=== PATIENT | female | born 1955 | race Caucasian/White ===

== ENCOUNTER 2016-05-07 10:11 | Emergency (ER) | payer BC ==
[~2016-05-07] VITALS: Ht 165.1 cm; Wt 60.0 kg
[~2016-05-07 10:11] MED LIST: ALPR0.5T99 PO; LORT5TAB PO; METR-1 PO; PRIN20TA2 PO
[2016-05-07 10:13] VITALS: BP 137/87; PULSE 118; RESP 15; TEMP 98.2; O2SAT 98
--- NOTE | 2016-05-07 12:38 | PD ---
HPI Chief Complaint: Medical Clearance Time Seen by Provider: 12:25 Travel History International Travel<30 days: No Contact w/Intl Traveler<30days: No Traveled to known affect area: No History of Present Illness HPI This is a 60-year-old female who reports a history of lower extremity peripheral neuropathy, hypertension, anxiety. She presents with her sister for evaluation. The patient reports that 2 days ago she was painting and exerting herself on her porch. She reports that she felt very tired and so she went and took a nap which is unusual for her. She then reports that her family members attempted to wake her up however she felt so weak that she was unable to respond or open her eyes. She could hear them trying to wake her up. Eventually she was able to respond with one word sentences. For most of the day she continued to feel generalized weakness and feel very tired. Yesterday she felt very tired as well but she felt less weak. Today she still feels mildly tired but otherwise feels well. She never had any focal unilateral weakness or facial droop, just generalized weakness. She does note that she drank 2 glasses of wine while she was painting. She denies any recent illness. Denies any headache, blurred vision, chest pain or shortness of breath. She called her primary care physician, Dr. Garg, who recommended that she come here for further evaluation. She has no other complaints. PFSH Past Medical History Anxiety: Yes Cancer: No Cardiovascular Problems: No Endocrine: No Genitourinary: No Hypertension: Yes Immune Disorder: No Musculoskeletal: No Neurologic: No Reproductive: Yes Respiratory: No Menopausal: Yes Dilation and Curettage (D&C): Yes Past Surgical History Appendectomy: Yes Gynecologic Surgery: Yes Social History Alcohol Use: Yes (2 GLASS OF WINE DAILY) Tobacco Use: No Substance Use: No Allergies-Medications (Allergen,Severity, Reaction): Coded Allergies: Morphine (Verified Allergy, Severe, 05/07/16) Sulfa (Verified Allergy, Severe, Itching, 05/07/16) Reported Meds & Prescriptions Reported Meds & Active Scripts Active Reported Gabapentin 300 Mg Cap 300 Mg PO TID Lisinopril 10 Mg Tab 10 Mg PO DAILY Xanax (Alprazolam) 1 Mg Tab 1 Mg PO Q6H PRN Review of Systems Except as stated in HPI: all other systems reviewed are Neg Physical Exam Narrative GENERAL: Well-developed well-nourished female in no acute distress. She is noted to be tachycardic in triage. SKIN: Warm and dry. HEAD: Atraumatic. Normocephalic. EYES: Pupils equal and round. No scleral icterus. No injection or drainage. ENT: No nasal bleeding or discharge. Mucous membranes pink and moist. NECK: Trachea midline. No JVD. CARDIOVASCULAR: Regular rate and rhythm. No murmur appreciated. RESPIRATORY: No accessory muscle use. Clear to auscultation. Breath sounds equal bilaterally. GASTROINTESTINAL: Abdomen soft, non-tender, nondistended. Hepatic and splenic margins not palpable. MUSCULOSKELETAL: No obvious deformities. No clubbing. No cyanosis. No edema. NEUROLOGICAL: Awake and alert. No obvious cranial nerve deficits. Motor grossly within normal limits. Normal speech. Normal finger-nose, heel to powell. 5 out of 5 chief technician x ray strength, arm flexion and extension, ankle dorsi and plantar flexion bilaterally. PSYCHIATRIC: Appropriate mood and affect; insight and judgment normal. Data Data Last Documented VS Vital Signs Date Time Temp Pulse Resp B/P Pulse Ox O2 Delivery O2 Flow Rate FiO2 05/07/16 14:29 88 22 146/78 99 Room Air 05/07/16 10:13 98.2 Orders Electrocardiogram (05/07/16 12:33) Complete Blood Count With Diff (05/07/16 12:33) Comprehensive Metabolic Panel (05/07/16 12:33) Urinalysis - C+S If Indicated (05/07/16 12:33) Ct Brain W/O Iv Contrast(Rout) (05/07/16 12:33) Magnesium (Mg) (05/07/16 12:33) Thyroid Stimulating Hormone (05/07/16 14:14) Free Thyroxine (T4) (05/07/16 14:14) Labs Laboratory Tests Test 05/07/16 05/07/16 12:45 13:15 White Blood Count 7.5 TH/MM3 Red Blood Count 4.59 MIL/MM3 Hemoglobin 14.6 GM/DL Hematocrit 42.7 % Mean Corpuscular Volume 93.1 FL Mean Corpuscular Hemoglobin 31.8 PG Mean Corpuscular Hemoglobin 34.2 % Concent Red Cell Distribution Width 13.6 % Platelet Count 240 TH/MM3 Mean Platelet Volume 6.7 FL Neutrophils (%) (Auto) 73.3 % Lymphocytes (%) (Auto) 15.2 % Monocytes (%) (Auto) 10.6 % Eosinophils (%) (Auto) 0.4 % Basophils (%) (Auto) 0.5 % Neutrophils # (Auto) 5.5 TH/MM3 Lymphocytes # (Auto) 1.1 TH/MM3 Monocytes # (Auto) 0.8 TH/MM3 Eosinophils # (Auto) 0.0 TH/MM3 Basophils # (Auto) 0.0 TH/MM3 CBC Comment DIFF FINAL Differential Comment Sodium Level 139 MEQ/L Potassium Level 4.3 MEQ/L Chloride Level 102 MEQ/L Carbon Dioxide Level 27.0 MEQ/L Anion Gap 10 MEQ/L Blood Urea Nitrogen 15 MG/DL Creatinine 0.81 MG/DL Estimat Glomerular Filtration 72 ML/MIN Rate Random Glucose 76 MG/DL Calcium Level 9.9 MG/DL Magnesium Level 2.4 MG/DL Total Bilirubin 0.4 MG/DL Aspartate Amino Transf 12 U/L (AST/SGOT) Alanine Aminotransferase 19 U/L (ALT/SGPT) Alkaline Phosphatase 61 U/L Total Protein 8.4 GM/DL Albumin 4.4 GM/DL Free Thyroxine 1.02 NG/DL Thyroid Stimulating Hormone 1.150 uIU/ML 3rd Gen Urine Color YELLOW Urine Turbidity CLEAR Urine pH 6.0 Urine Specific Robert 1.013 Urine Protein NEG mg/dL Urine Glucose (UA) NEG mg/dL Urine Ketones 80 mg/dL Urine Occult Blood NEG Urine Nitrite NEG Urine Bilirubin NEG Urine Urobilinogen LESS THAN 2.0 MG/DL Urine Leukocyte Esterase NEG Urine RBC LESS THAN 1 /hpf Urine WBC LESS THAN 1 /hpf Urine Squamous Epithelial <1 /hpf Cells Microscopic Urinalysis Comment CATH-CULT NOT IND MDM Medical Decision Making Medical Screen Exam Complete: Yes Emergency Medical Condition: Yes Medical Record Reviewed: Yes Differential Diagnosis Dehydration, electrolyte abnormality, intoxication, TIA, CVA Narrative Course This is a 60-year-old female who experienced generalized weakness and severe fatigue after painting 2 days ago. She continued to feel very fatigued yesterday and still feels mildly fatigued today. Her primary care physician sent her here for evaluation of this issue. Initial examination reveals no focal neurologic abnormalities. The patient was initially seen in triage where lab work, EKG and CT of the brain have been ordered. The patient will be moved to a medical bed when one becomes available. John Bueno May 07, 2016 12:38
[2016-05-07 13:05] LABS: AUTOMATED NEUTROPHIL # 5.5 TH/MM3 (1.8-7.7); BASOPHIL % 0.5 % (0.0-2.0); EOSINOPHIL % 0.4 % (0.0-4.0); HEMATOCRIT 42.7 % (35.0-46.0); HEMO FLAGS DIFF FINAL; LYMPH % 15.2 % (9.0-44.0); LYMPHOCYTE # 1.1 TH/MM3 (1.0-4.8); MEAN CELL VOLUME 93.1 FL (80.0-100.0); MEAN CORPUSCULAR HEMOGLOBIN 31.8 PG (27.0-34.0); MEAN CORPUSCULAR HGB CONC 34.2 % (32.0-36.0); MONO % 10.6 % (0.0-8.0); NEUT % 73.3 % (16.0-70.0); PLATELET COUNT 240 TH/MM3 (150-450); RED BLOOD COUNT 4.59 MIL/MM3 (4.00-5.30); RED CELL DISTRIBUTION WIDTH 13.6 % (11.6-17.2); WHITE BLOOD COUNT 7.5 TH/MM3 (4.0-11.0)
--- NOTE | 2016-05-07 13:16 | RADRPT ---
EXAM DATE/TIME: 05/07/2016 13:04 [facility] COMPARISON: No previous studies available for comparison. INDICATIONS : Episode of general weakness two days ago. RADIATION DOSE: 56.35 CTDIvol (mGy) MEDICAL HISTORY : Hypertension. SURGICAL HISTORY : Appendectomy. ENCOUNTER: Initial ACUITY: 1 day PAIN SCALE: 0/10 LOCATION: Bilateral head TECHNIQUE: Multiple contiguous axial images were obtained of the head. Using automated exposure control and adj ustment of the mA and/or kV according to patient size, radiation dose was kept as low as reasonably a chievable to obtain optimal diagnostic quality images. FINDINGS: CEREBRUM: The ventricles are normal for age. No evidence of midline shift, mass lesion, hemorrhage or acute in farction. No extra-axial fluid collections are seen. POSTERIOR FOSSA: The cerebellum and brainstem are intact. The 4th ventricle is midline. The cerebellopontine angle i s unremarkable. EXTRACRANIAL: The visualized portion of the orbits is intact. SKULL: The calvaria is intact. No evidence of skull fracture. CONCLUSION: Negative for an acute process.. Kieran Babb MD FACR on May 07, 2016 at 13:14 Board Certified Radiologist. This report was verified electronically.
[2016-05-07 13:27] LABS: ALT (GPT) 19 U/L (10-53); ANION GAP 10 MEQ/L (5-15); AST (GOT) 12 U/L (15-37); BLOOD UREA NITROGEN 15 MG/DL (7-18); CHLORIDE 102 MEQ/L (98-107); GLOMERULAR FILTRATION RATE 72 ML/MIN (>89); MAGNESIUM 2.4 MG/DL (1.5-2.5); POTASSIUM 4.3 MEQ/L (3.5-5.1); SODIUM (NA) 139 MEQ/L (136-145)
[2016-05-07 13:29] LABS: ALKALINE PHOSPHATASE 61 U/L (45-117); TOTAL BILIRUBIN ADULT 0.4 MG/DL (0.2-1.0)
[2016-05-07 14:10] LABS: BLOOD, URINE NEG (NEG); GLUCOSE,URINE NEG (NEG); KETONE, URINE 80 mg/dL (NEG); NITRITE,URINE NEG (NEG); SQUAMOUS EPITHELIAL CELL URINE <1 /hpf (0-5); URINE COLOR YELLOW (YELLW/STRAW)
[2016-05-07 14:16] LABS: COMMENT (UR) CATH-CULT NOT IND; CULTURE IF INDICATED CATH CULTURE NOT IND
[2016-05-07 14:29] VITALS: BP 146/78; PULSE 88; RESP 22; O2SAT 99
--- NOTE | 2016-05-07 14:31 | PD ---
Physical Exam Date Seen by Provider: May 07, 2016 Time Seen by Provider: 14:29 Narrative The patient is a 60-year-old female was initially evaluated by the mid-level provider. Please refer to the initial history, physical, diagnostic evaluation , and treatment modality plan. Data Data Last Documented VS Vital Signs Date Time Temp Pulse Resp B/P Pulse Ox O2 Delivery O2 Flow Rate FiO2 05/07/16 14:29 88 22 146/78 99 Room Air 05/07/16 10:13 98.2 Orders Electrocardiogram (05/07/16 12:33) Complete Blood Count With Diff (05/07/16 12:33) Comprehensive Metabolic Panel (05/07/16 12:33) Urinalysis - C+S If Indicated (05/07/16 12:33) Ct Brain W/O Iv Contrast(Rout) (05/07/16 12:33) Magnesium (Mg) (05/07/16 12:33) Thyroid Stimulating Hormone (05/07/16 14:14) Free Thyroxine (T4) (05/07/16 14:14) Labs Laboratory Tests Test 05/07/16 05/07/16 12:45 13:15 White Blood Count 7.5 TH/MM3 Red Blood Count 4.59 MIL/MM3 Hemoglobin 14.6 GM/DL Hematocrit 42.7 % Mean Corpuscular Volume 93.1 FL Mean Corpuscular Hemoglobin 31.8 PG Mean Corpuscular Hemoglobin 34.2 % Concent Red Cell Distribution Width 13.6 % Platelet Count 240 TH/MM3 Mean Platelet Volume 6.7 FL Neutrophils (%) (Auto) 73.3 % Lymphocytes (%) (Auto) 15.2 % Monocytes (%) (Auto) 10.6 % Eosinophils (%) (Auto) 0.4 % Basophils (%) (Auto) 0.5 % Neutrophils # (Auto) 5.5 TH/MM3 Lymphocytes # (Auto) 1.1 TH/MM3 Monocytes # (Auto) 0.8 TH/MM3 Eosinophils # (Auto) 0.0 TH/MM3 Basophils # (Auto) 0.0 TH/MM3 CBC Comment DIFF FINAL Differential Comment Sodium Level 139 MEQ/L Potassium Level 4.3 MEQ/L Chloride Level 102 MEQ/L Carbon Dioxide Level 27.0 MEQ/L Anion Gap 10 MEQ/L Blood Urea Nitrogen 15 MG/DL Creatinine 0.81 MG/DL Estimat Glomerular Filtration 72 ML/MIN Rate Random Glucose 76 MG/DL Calcium Level 9.9 MG/DL Magnesium Level 2.4 MG/DL Total Bilirubin 0.4 MG/DL Aspartate Amino Transf 12 U/L (AST/SGOT) Alanine Aminotransferase 19 U/L (ALT/SGPT) Alkaline Phosphatase 61 U/L Total Protein 8.4 GM/DL Albumin 4.4 GM/DL Free Thyroxine 1.02 NG/DL Thyroid Stimulating Hormone 1.150 uIU/ML 3rd Gen Urine Color YELLOW Urine Turbidity CLEAR Urine pH 6.0 Urine Specific [place] 1.013 Urine Protein NEG mg/dL Urine Glucose (UA) NEG mg/dL Urine Ketones 80 mg/dL Urine Occult Blood NEG Urine Nitrite NEG Urine Bilirubin NEG Urine Urobilinogen LESS THAN 2.0 MG/DL Urine Leukocyte Esterase NEG Urine RBC LESS THAN 1 /hpf Urine WBC LESS THAN 1 /hpf Urine Squamous Epithelial <1 /hpf Cells Microscopic Urinalysis Comment CATH-CULT NOT IND MDM Medical Record Reviewed: Yes Supervised Visit with ANDERSON: Yes Interpretation(s) Last Impressions Head CT 05/07/16 1233 Signed Impressions: Service Date/Time: Saturday, May 07, 2016 13:04 - CONCLUSION: Negative for an acute process.. Kieran Babb MD FACR Laboratory Tests Test 05/07/16 05/07/16 12:45 13:15 White Blood Count 7.5 TH/MM3 Red Blood Count 4.59 MIL/MM3 Hemoglobin 14.6 GM/DL Hematocrit 42.7 % Mean Corpuscular Volume 93.1 FL Mean Corpuscular Hemoglobin 31.8 PG Mean Corpuscular Hemoglobin 34.2 % Concent Red Cell Distribution Width 13.6 % Platelet Count 240 TH/MM3 Mean Platelet Volume 6.7 FL Neutrophils (%) (Auto) 73.3 % Lymphocytes (%) (Auto) 15.2 % Monocytes (%) (Auto) 10.6 % Eosinophils (%) (Auto) 0.4 % Basophils (%) (Auto) 0.5 % Neutrophils # (Auto) 5.5 TH/MM3 Lymphocytes # (Auto) 1.1 TH/MM3 Monocytes # (Auto) 0.8 TH/MM3 Eosinophils # (Auto) 0.0 TH/MM3 Basophils # (Auto) 0.0 TH/MM3 CBC Comment DIFF FINAL Differential Comment Sodium Level 139 MEQ/L Potassium Level 4.3 MEQ/L Chloride Level 102 MEQ/L Carbon Dioxide Level 27.0 MEQ/L Anion Gap 10 MEQ/L Blood Urea Nitrogen 15 MG/DL Creatinine 0.81 MG/DL Estimat Glomerular Filtration 72 ML/MIN Rate Random Glucose 76 MG/DL Calcium Level 9.9 MG/DL Magnesium Level 2.4 MG/DL Total Bilirubin 0.4 MG/DL Aspartate Amino Transf 12 U/L (AST/SGOT) Alanine Aminotransferase 19 U/L (ALT/SGPT) Alkaline Phosphatase 61 U/L Total Protein 8.4 GM/DL Albumin 4.4 GM/DL Free Thyroxine 1.02 NG/DL Thyroid Stimulating Hormone 1.150 uIU/ML 3rd Gen Urine Color YELLOW Urine Turbidity CLEAR Urine pH 6.0 Urine Specific [place] 1.013 Urine Protein NEG mg/dL Urine Glucose (UA) NEG mg/dL Urine Ketones 80 mg/dL Urine Occult Blood NEG Urine Nitrite NEG Urine Bilirubin NEG Urine Urobilinogen LESS THAN 2.0 MG/DL Urine Leukocyte Esterase NEG Urine RBC LESS THAN 1 /hpf Urine WBC LESS THAN 1 /hpf Urine Squamous Epithelial <1 /hpf Cells Microscopic Urinalysis Comment CATH-CULT NOT IND Differential Diagnosis Differential diagnosis includes TIA, CVA, hypothyroidism, sleep paralysis, fatigue, anemia, hyponatremia, electrolyte abnormality. Narrative Course I, Dr. Plata, have reviewed the advance practice practitioner's documentation and am in agreement, met with the patient face to face, made the diagnosis, and the medical decision making was done by me. *My assessment and Findings: The patient is a 60-year-old female was initially evaluated by John WYATT. Please refer to the initial history, physical , diagnostic evaluation, treatment modality plan. 2 days ago the patient was having wine and pain in a cabinet when she became tired and fatigued. The patient went and took a nap, when her awakened her, she states she was able to tell what was going on, but was unable to talk or move her limbs. The patient states her symptoms lasted several minutes and then resolved. The patient has complain of mild fatigue over the last several days and her physician referred her to the emergency department for possible TIA/CVA. The patient's physical examination is unremarkable, her neurologic exam is nonfocal , her stroke scale would be 0. It appears the patient had sleep paralysis. However, the patient has had some increasing fatigue over the last 2 days and has a history of thyroid nodule, therefore, TSH and free T4 added to original labs. CT the brain was negative. Initial laboratory evaluation was unremarkable. TSH and free T4 unremarkable. The patient stable for outpatient follow-up. Diagnosis Primary Impression: Sleep paralysis Additional Impression: Fatigue Qualified Code: R53.83 - Fatigue, unspecified type Patient Instructions: General Instructions Additional Instruction: Please provide a patient a copy of her CT results and lab results at discharge. Follow-up with your primary physician. Return if symptoms worsen or progress. Med/Other Pt SpecificInfo: No Change to Meds Disposition: 01 DISCHARGE HOME Condition: Stable Arturo Plata MD May 07, 2016 14:31
[2016-05-07] MEDS ORDERED: XANA1TAB2 PO (14:32)
[2016-05-07] MEDS ORDERED: GABA300C5 PO (14:32)
[2016-05-07] MEDS ORDERED: LISI10TA3 PO (14:32)
[2016-05-07 14:46] LABS: FREE T4 1.02 NG/DL (0.76-1.46)
--- NOTE | 2016-05-08 21:48 | EKG ---
Date Performed: 05/07/2016 Time Performed: 13:04:27 PTAGE: 60 years EKG: Sinus rhythm POSSIBLE LEFT ATRIAL ENLARGEMENT Since previous tracing, no significant change noted BORDERLINE ECG PREVIOUS TRACING : 10/16/2010 13.57 DOCTOR: Azucena Shelton Interpretating Date/Time 05/08/2016 21:46:30
== END 2016-05-07 16:07 | disposition home or self-care (01) ==
LOC: NEPE 10:11
DX: R53.83 Other fatigue (principal); R29.5 Transient paralysis; E04.1 Nontoxic single thyroid nodule; I10 Essential (primary) hypertension; R00.0 Tachycardia, unspecified; R94.31 Abnormal electrocardiogram [ECG] [EKG]; G62.9 Polyneuropathy, unspecified
CPT/HCPCS: 70450; 80053; 81001; 83735; 84439; 84443; 85025; 93005

== ENCOUNTER 2016-08-11 14:02 | Inpatient (IN) | payer BC ==
[2016-08-11] VITALS (19 sets, daily range): BP systolic 75–134; BP diastolic 46–83; PULSE 100–129; RESP 20–24; TEMP 97.4–98.2; O2SAT 93–100
[~2016-08-11] VITALS: Ht 165.1 cm; Wt 60.6 kg
[~2016-08-11 14:02] MED LIST changes: -ALPR0.5T99 PO; +GABA300C5 PO; +LACTATED RINGER'S 1000 ML INJ 1,000 ML IV ONE; +LISI10TA3 PO; -LORT5TAB PO; -METR-1 PO; +NORMOSOL R INJ 2,000 ML IV ONE; +ONDANSETRON HCL 4 MG/2 ML VIAL IV PUSH ONE; +PHENYLEPH/NS 1000 MCG/10 ML SYR IV ONE; -PRIN20TA2 PO; +PROPOFOL 200 MG/20 ML AMP IV ONE; +XANA1TAB2 PO
[2016-08-11] MEDS ORDERED: SODIUM CHLORIDE 0.9% FLUSH 10 ML FLUSH IV FLUSH PRN (14:15)
[2016-08-11] MEDS ORDERED: SODIUM CHLOR 0.9% 1000 ML INJ 1,000 ML IV SCH (14:15)
[2016-08-11] MEDS ORDERED: SODIUM CHLOR 0.9% 250 ML INJ 250 ML IV ONE ×2 (14:15→15:45)
[2016-08-11 14:51] LABS: AUTOMATED NEUTROPHIL # 6.7 TH/MM3 (1.8-7.7); BASOPHIL % 0.5 % (0.0-2.0); EOSINOPHIL # 0.4 TH/MM3 (0-0.4); EOSINOPHIL % 3.4 % (0.0-4.0); HEMATOCRIT 21.8 % (35.0-46.0); HEMO FLAGS DIFF FINAL; MEAN CELL VOLUME 92.5 FL (80.0-100.0); MEAN CORPUSCULAR HEMOGLOBIN 32.8 PG (27.0-34.0); MEAN CORPUSCULAR HGB CONC 35.5 % (32.0-36.0); MONO % 12.9 % (0.0-8.0); NEUT % 64.2 % (16.0-70.0); PLATELET COUNT 224 TH/MM3 (150-450); RED BLOOD COUNT 2.36 MIL/MM3 (4.00-5.30); RED CELL DISTRIBUTION WIDTH 13.5 % (11.6-17.2); WHITE BLOOD COUNT 10.4 TH/MM3 (4.0-11.0)
[2016-08-11 15:11] LABS: BICARBONATE 24.7 MEQ/L (21.0-32.0); CALCIUM-PROTEIN CORRECTED 8.4 MG/DL (8.5-10.1); POTASSIUM 3.5 MEQ/L (3.5-5.1); TOTAL BILIRUBIN ADULT 0.3 MG/DL (0.2-1.0)
[2016-08-11] MEDS ORDERED: HYDROmorphone HCL PF 1 MG/ML VIAL IV PUSH ONE (15:15)
[2016-08-11] MEDS ORDERED: ONDANSETRON HCL 4 MG/2 ML VIAL IV PUSH ONE (15:15)
[2016-08-11 15:28] LABS: PROTHROMBIN TIME - PATIENT 10.7 SEC (9.8-11.6)
--- NOTE | 2016-08-11 15:57 | PD ---
HPI Chief Complaint: Syncope/Near-Syncope Time Seen by Provider: 14:14 Travel History International Travel<30 days: No Contact w/Intl Traveler<30days: No Traveled to known affect area: No History of Present Illness HPI The patient 60 years old. Yesterday she underwent colonoscopy by Dr. Cyr. Reportedly she was having abdominal pain of indeterminate etiology and the colonoscopy was performed in order to make a diagnosis. In any case today the patient felt left upper quadrant pain. It radiated to the left shoulder. She became increasingly dizzy and short of breath. Her called 911. On scene the blood pressure was 78 over palp. She received 1 L normal saline bolus and the blood pressure increased to 110 over palp. In route to the ER the patient experienced a syncopal-type episode that lasted from 20-30 seconds. EMS was concerned for acute coronary syndrome and gave the patient aspirin and nitroglycerin. Her blood pressure decreased afterwards. In the ER the patient describes generalized abdominal pain. It's constant and severe. She denies bloody stool. She's had no fever or vomiting. PFSH Past Medical History Anxiety: Yes Cancer: No Cardiovascular Problems: No Endocrine: No Genitourinary: No Hypertension: Yes Immune Disorder: No Musculoskeletal: No Neurologic: No Reproductive: Yes Respiratory: No ?: Menopausal: Yes : 1 Para: 1 Dilation and Curettage (D&C): Yes (SEVERAL) Past Surgical History Appendectomy: Yes Gynecologic Surgery: Yes Other Surgery: Yes Social History Alcohol Use: Yes (2 GLASS OF WINE DAILY) Tobacco Use: No Substance Use: No Allergies-Medications (Allergen,Severity, Reaction): Coded Allergies: Morphine (Verified Allergy, Severe, 08/11/16) Sulfa (Verified Allergy, Severe, Itching, 08/11/16) Reported Meds & Prescriptions Reported Meds & Active Scripts Active Reported Lisinopril 10 Mg Tab 10 Mg PO DAILY Xanax (Alprazolam) 1 Mg Tab 1 Mg PO Q6H PRN Review of Systems Except as stated in HPI: all other systems reviewed are Neg Physical Exam Narrative GENERAL: 60-year-old female, moderate distress secondary to pain SKIN: Pale. Dry. HEAD: Atraumatic. Normocephalic. EYES: Pupils equal and round. No scleral icterus. No injection or drainage. ENT: No nasal bleeding or discharge. Mucous membranes pink and moist. NECK: Trachea midline. CARDIOLOGY: Tachycardia. Sinus. RESPIRATORY: No accessory muscle use. Clear to auscultation. Breath sounds equal bilaterally. GASTROINTESTINAL: Generalized tenderness present. Stool specimen is guaiac negative. MUSCULOSKELETAL: No obvious deformities. No clubbing. No cyanosis. No edema. NEUROLOGICAL: Awake and alert. No obvious cranial nerve deficits. Motor grossly within normal limits. Normal speech. PSYCHIATRIC: Appropriate mood and affect; insight and judgment normal. Data Data Last Documented VS Vital Signs Date Time Temp Pulse Resp B/P Pulse Ox O2 Delivery O2 Flow Rate FiO2 08/11/16 16:07 97.5 118 22 83/53 100 Nasal Cannula 2 Vital signs reviewed Orders Complete Blood Count With Diff (08/11/16 14:15) Comprehensive Metabolic Panel (08/11/16 14:15) Lipase (08/11/16 14:15) Lactic Acid (08/11/16 14:15) Prothrombin Time / Inr (Pt) (08/11/16 14:15) Act Partial Throm Time (Ptt) (08/11/16 14:15) Urinalysis - C+S If Indicated (08/11/16 14:15) Ct Abd/Pel W/O Iv Contrast (08/11/16 14:15) Iv Access Insert/Monitor (08/11/16 14:15) Ecg Monitoring (08/11/16 14:15) Oximetry (08/11/16 14:15) NPO (08/11/16 14:15) Sodium Chlor 0.9% 1000 Ml Inj (Ns 1000 M (08/11/16 14:15) Sodium Chloride 0.9% Flush (Ns Flush) (08/11/16 14:15) Electrocardiogram (08/11/16 14:15) Type And Screen (08/11/16 14:15) Blood Product Administration .UPON TRANSFUSION (08/11/16 14:15) Sodium Chlor 0.9% 250 Ml Inj (Ns 250 Ml (08/11/16 14:15) Troponin I (08/11/16 14:17) Hydromorphone Pf Inj (Dilaudid Pf Inj) (08/11/16 15:15) Ondansetron Inj (Zofran Inj) (08/11/16 15:15) Red Blood Cells (Rbc) (08/11/16 15:44) Fresh Frozen Plasma (Ffp) (08/11/16 15:44) Platelet Pheresis (08/11/16 15:44) Blood Product Administration .UPON TRANSFUSION (08/11/16 15:44) Sodium Chlor 0.9% 250 Ml Inj (Ns 250 Ml (08/11/16 15:45) Fresh Frozen Plasma (Ffp) (08/11/16 16:05) Red Blood Cells (Rbc) (08/11/16 16:05) Admit Order (Ed Use Only) (08/11/16 16:05) Labs Laboratory Tests Test 08/11/16 08/11/16 08/11/16 08/11/16 14:20 14:25 15:44 16:05 White Blood Count 10.4 TH/MM3 Red Blood Count 2.36 MIL/MM3 Hemoglobin 7.7 GM/DL Hematocrit 21.8 % Mean Corpuscular Volume 92.5 FL Mean Corpuscular Hemoglobin 32.8 PG Mean Corpuscular Hemoglobin 35.5 % Concent Red Cell Distribution Width 13.5 % Platelet Count 224 TH/MM3 Mean Platelet Volume 7.5 FL Neutrophils (%) (Auto) 64.2 % Lymphocytes (%) (Auto) 19.0 % Monocytes (%) (Auto) 12.9 % Eosinophils (%) (Auto) 3.4 % Basophils (%) (Auto) 0.5 % Neutrophils # (Auto) 6.7 TH/MM3 Lymphocytes # (Auto) 2.0 TH/MM3 Monocytes # (Auto) 1.3 TH/MM3 Eosinophils # (Auto) 0.4 TH/MM3 Basophils # (Auto) 0.0 TH/MM3 CBC Comment DIFF FINAL Differential Comment Prothrombin Time 10.7 SEC Prothromb Time International 1.0 RATIO Ratio Activated Partial 25.0 SEC Thromboplast Time Sodium Level 137 MEQ/L Potassium Level 3.5 MEQ/L Chloride Level 105 MEQ/L Carbon Dioxide Level 24.7 MEQ/L Anion Gap 7 MEQ/L Blood Urea Nitrogen 14 MG/DL Creatinine 0.82 MG/DL Estimat Glomerular Filtration 71 ML/MIN Rate Random Glucose 162 MG/DL Lactic Acid Level 3.0 mmol/L Calcium Level 7.3 MG/DL Protein Corrected Calcium 8.4 MG/DL Total Bilirubin 0.3 MG/DL Aspartate Amino Transf 10 U/L (AST/SGOT) Alanine Aminotransferase 16 U/L (ALT/SGPT) Alkaline Phosphatase 40 U/L Total Protein 5.1 GM/DL Albumin 2.6 GM/DL Lipase 68 U/L Blood Type O POSITIVE Antibody Screen NEGATIVE Crossmatch Leukocyte-Reduced Leukocyte-Reduced Leukocyte-Reduced Leukocyte- Reduced Red Blood Red Blood Red Blood Red Blood Cells Cells Cells Cells Blood Bank Comment MDM Medical Decision Making Medical Screen Exam Complete: Yes Emergency Medical Condition: Yes Medical Record Reviewed: Yes Differential Diagnosis Perforated viscous, hemorrhagic shock, solid organ injury, colonic bleed Narrative Course CBC & BMP Diagram 08/11/16 14:20 Lactic acid 3.0 Alk phos 40 Total protein 5.1 Albumin 2.6 Lipase 68 INR 1.0 Last 24 hours Impressions Abdomen/Pelvis CT 08/11/16 1415 Signed Impressions: Service Date/Time: Thursday, August 11, 2016 15:24 - CONCLUSION: 1. Splenic enlargement and hemorrhage which appears to be predominantly subcapsular measuring up to 11.3 cm in diameter with moderate hemoperitoneum. The IVC is flattened consistent with low fluid volume. Clive Gallego MD [place] transfusion initiated. Patient received 2 units packed cells as emergency release followed by an additional 4 units PRBCs, 4 units of fresh frozen plasma and 1 unit platelets. General surgery at bedside at 315pm. Stat exploratory laparoscopy planned. The patient accompanied by the undersigned to the PACU until time of 4:45 PM. Patient received all blood products. Heart rate approximately 130 blood pressure approximately 110/50 at time of arrival to PACU. Critical Care Narrative Aggregate critical care time was 45 minutes. Time to perform other separately billable procedures was not included in the critical care time. My time did not include minutes spent treating any other patients simultaneously or on activities that did not directly contribute to the patient's treatment. The services I provided to this patient were to treat and/or prevent clinically significant deterioration that could result in: Cardiopulmonary arrest, hemorrhagic shock I provided critical care services requiring my management, as noted below: Chart data review, documentation time, medication orders and management, vital sign assessments/reviewing monitor data, ordering and reviewing lab tests, ordering and interpreting/reviewing x-rays and diagnostic studies, care of the patient and discussion of the patient with the admitting physicians. Diagnosis Primary Impression: Splenic rupture Additional Impressions: Hemoperitoneum Intraperitoneal hemorrhage Admitting Information Admitting Physician Requests: Admit Luis Alfredo Garcia MD Aug 11, 2016 15:57
--- NOTE | 2016-08-11 16:09 | RADRPT ---
EXAM DATE/TIME: 08/11/2016 15:24 [facility] COMPARISON: No previous studies available for comparison. INDICATIONS : Abdominal pain after colonoscopy yesterday. ORAL CONTRAST: No oral contrast ingested. RADIATION DOSE: 10.03 CTDIvol (mGy) MEDICAL HISTORY : Hypertension. SURGICAL HISTORY : Appendectomy. ENCOUNTER: Initial ACUITY: 1 day PAIN SCALE: 6/10 LOCATION: Bilateral abdomen TECHNIQUE: Volumetric scanning of the abdomen and pelvis was performed. Using automated exposure control and ad justment of the mA and/or kV according to patient size, radiation dose was kept as low as reasonably achievable to obtain optimal diagnostic quality images. DICOM format image data is available electro nically for review and comparison. FINDINGS: The spleen is enlarged 11.3 x 10 cm with extensive subcapsular hemorrhage present. There is also a mo derate hemoperitoneum measuring up to 2.8 cm in thickness anterior to the liver. This hemoperitoneum extending down the paracolic gutters and moderate hemoperitoneum in the pelvis as well. Small cysts noted in the liver. Adrenals, kidneys and pancreas unremarkable. No bowel obstruction. No free air. No acute bony abnormalities. CONCLUSION: 1. Splenic enlargement and hemorrhage which appears to be predominantly subcapsular measuring up to 1 1.3 cm in diameter with moderate hemoperitoneum. The IVC is flattened consistent with low fluid volum e. Clive Gallego MD on August 11, 2016 at 15:57 Board Certified Radiologist. This report was verified electronically.
--- NOTE | 2016-08-11 16:52 | MH ---
cc: ANABEL GENAO MD, HASSAN MD DATE OF ADMISSION 08/11/2016 REASON FOR ADMISSION Splenic rupture HISTORY OF PRESENT ILLNESS This is an otherwise pretty healthy 60 year old woman who apparently had been having some left-sided abdominal pain, was advised by her record changer to have a colonoscopy. She underwent colonoscopy yesterday. She began experiencing abdominal pain right after her colonoscopy and was told it was related to the gas. She has become increasingly dizzy and short of breath and her called 911. She was hypotensive with a blood pressure of 78. After saline bolus, her blood pressure increased to 110. Concern was for acute coronary syndrome and Emergency Medical Service gave aspirin and nitroglycerine which subsequently decreased her blood pressure again. She was seen by the emergency room physician who got a CT scan which showed the splenic rupture. She has had two large bore IVs. She has been getting blood and blood products. ALLERGIES SULFA MORPHINE PAST MEDICAL HISTORY 1. Anxiety 2. Chronic left lower quadrant pain. 3. Multiple D&Cs. PAST SURGICAL HISTORY 1. Appendectomy 2. D&Cs. SOCIAL HISTORY She is a nonsmoker. She has about two glasses of wine a day. MEDICATIONS Routine medications include 1. Lisinopril 2. Xanax PHYSICAL EXAMINATION GENERAL: A middle aged woman in appropriately mild distress. VITAL SIGNS: Temperature is 97.5, heart rate 128, blood pressure 86/53. O2 saturation 100% on two liter nasal cannula. HEENT: Normocephalic, atraumatic. She is somewhat pale and ashen. NECK: Supple without adenopathy. She has a midline trachea. LUNGS: Sounds are clear and equal. HEART: Sounds are consistent with a sinus tachycardia. ABDOMEN: Mildly distended, diffusely tender. There is a right lower quadrant transverse well-healed scar. She has no other scars. EXTREMITIES: Thin. She has equal radial pulses. NEUROLOGIC: She is awake and alert and appropriately anxious. LABORATORY DATA Hemoglobin of 7.7, platelet count 224, INR 1. Potassium 3.5, lactic acid was 3, albumin 2.6, lipase 68. IMAGING STUDIES CT shows a splenic enlargement and hemorrhage with moderate hemoperitoneum. The IVC was flat. ASSESSMENT AND PLAN A 60 year old woman who is one day status post colonoscopy who has a splenic rupture. She is in mild hemorrhagic shock. She is being supported with blood and blood product transfusion. Plans are being made for emergent exploratory laparotomy and splenectomy. I have discussed this with the patient and her family who understand and are agreeable to proceed. I have contacted the operating room and they are mobilizing appropriate resources. The patient will need postoperative vaccinations post splenectomy. We talked about risks of injury to surrounding organs, stomach, pancreas and colon as well as of deep venous thrombosis, pulmonary embolus and expectations for recovery. She understands. MD AMINATA Moyer/ /4:27 PM /4:37 PM
[2016-08-11] MEDS ORDERED: ceFAZolin 2 GM PREMIX 50 ML ONE (17:10)
[2016-08-11] MEDS ORDERED: HEPARIN SODIUM - SQ 10,000 UNITS/ML VIAL ONE (17:26)
[2016-08-11 18:32] LABS: BLOOD GAS BASE EXCESS -3.3 mmol/L (-2-2); BLOOD GAS CARBOXYHEMOGLOBIN 2.4 % (0-4); BLOOD GAS HCO3 20 mmol/L (22-26); BLOOD GAS METHEMOGLOBIN 1.2 % (0-2); BLOOD GAS O2 HGB SATURATION 96 % (90-100); BLOOD GAS OXYGEN CONTENT 11.9 Vol % (12.0-20.0); BLOOD GAS PCO2 29 mmHg (38-42); BLOOD GAS PO2 235 mmHg (61-120); BLOOD GAS TOTAL HGB 8.3 G/DL (12.0-16.0); CRITICAL VALUE NO; STAT NO; TEMP CORR TO 98.6
--- NOTE | 2016-08-11 18:36 | PD.OP ---
Operative Report Date of Surgery: Aug 11, 2016 Preoperative Diagnosis: splenic laceration Postoperative Diagnosis: same, liver capsular tear Procedure: exploratory laparotomy, splenectomy, repair liver capsular tear. Anesthesia: general Surgeon: Francisco Hinton Wheat Farmer(s): Mike Operation and Findings: massive hemoperitoneum, spleen to pathology. Tear of liver capsule, ? associated with Ilya Kennedy Yash adhesions. LLQ mass sigmoid colon and L ovary, left alone. EBL greater than 3 liters. Francisco Hinton MD Aug 11, 2016 18:36
[2016-08-11] MEDS ORDERED: Post-op Orders (for Pharmacy) MISC XX ONE (18:45)
[2016-08-11] MEDS ORDERED: NALOXONE HCL 0.4 MG/ML AMP IV PRN ×2 (18:45)
[2016-08-11] MEDS ORDERED: fentaNYL CITRATE 250 MCG/5 ML AMP ONE (18:57)
[2016-08-11] MEDS ORDERED: *HYDROmorphone PF 1 MG VIAL PERIprocedural Use ONLY ONE (19:00)
[2016-08-11] MEDS: LACTATED RINGER'S 1000 ML INJ 1,000 ML IV SCH (19:00)
[2016-08-11] MEDS ORDERED: SUGAMMADEX SODIUM 200 MG/2 ML VIAL IV PUSH ONE ×2 (19:15)
[2016-08-11 19:40] LABS: HEMATOCRIT 37.1 % (35.0-46.0); MEAN CELL VOLUME 87.8 FL (80.0-100.0); MEAN CORPUSCULAR HEMOGLOBIN 30.1 PG (27.0-34.0); MEAN CORPUSCULAR HGB CONC 34.3 % (32.0-36.0); PLATELET COUNT 91 TH/MM3 (150-450); RED BLOOD COUNT 4.23 MIL/MM3 (4.00-5.30); RED CELL DISTRIBUTION WIDTH 16.5 % (11.6-17.2)
[2016-08-11] MEDS: PANTOPRAZOLE SODIUM 40 MG VIAL IV SCH (19:50)
[2016-08-11 20:06] LABS: BICARBONATE 25.4 MEQ/L (21.0-32.0); MAGNESIUM 1.5 MG/DL (1.5-2.5); POTASSIUM 4.1 MEQ/L (3.5-5.1)
[2016-08-11] MEDS ORDERED: DO NOT ADM ANY ANTICOAGULANT DRUGS PRN (20:15)
[2016-08-11 20:21] LABS: CALCIUM-PROTEIN CORRECTED 7.8 MG/DL (8.5-10.1)
[2016-08-11] MEDS: HYDROmorphone HCL PCA 6 MG/30 ML IV SCH (20:54)
--- NOTE | 2016-08-11 21:08 | PD.CONS ---
[facility] Service Critical Care Medicine Consult Requested By Dr. Hinton Reason for Consult Medical management postoperatively following rupture spleen Primary Care Physician Kieran Garg, DO History of Present Illness 60-year-old female with past medical history of hypertension who states she has had intermittent left-sided abdominal pain "for many months". She states that she had been evaluated by her computer meteorologist for her abdominal pain and that an ultrasound had been performed. She states that her ultrasound showed some abnormality of the colon and thus colonoscopy was recommended. She underwent colonoscopy 08/10/[address] Chavez. She did have some abdominal pain post colonoscopy which was initially attributed to gas insufflation. However she became increasingly dizzy and short of breath and her contacted 911. She was hypotensive but fluid responsive. When she arrived to [facility] emergency Department a CT abdomen was obtained and was consistent with splenic rupture. There was splenic enlargement with hemoperitoneum. She has undergone exploratory laparotomy by Dr. Francisco Hinton with repair of capsular tear of the liver. According to ED blood transfusion records she has received 6 units packed red cells, 4 units FFP, 1 unit of platelets preoperatively. In OR she received 1200 Cell Saver, 3600 crystalloid. EBL was 3 L. Urine output was 200. I have evaluated her postoperatively in ISC where her urine output for the first hour is 60 mL. She reports satisfactory analgesia with Dilaudid CAT DOG OR OTHER PET GROOMER. Review of Systems Gastrointestinal: COMPLAINS OF: Abdominal pain Past Family Social History Allergies: Coded Allergies: Morphine (Verified Allergy, Severe, 08/11/16) Sulfa (Verified Allergy, Severe, Itching, 08/11/16) Past Medical History Treated for liver abscess in 2010. E. histolytica Ab negative. Diverticulosis with recurrent diverticulitis Hypertension Anxiety She states she has a sulfa intolerance" feels like bugs are crawling on her" Past Surgical History Appendectomy when she was in her 20s Multiple D&Cs Reported Medications Lisinopril 10 mill grams by mouth daily Xanax 1 mg by mouth every 6 hours when necessary anxiety Family History She denies significant family medical history. Social History She is a nonsmoker Drinks 2 glasses of wine per night and more on the weekends Denies use of illicit drugs. 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 Physical Exam Vital Signs Vital Signs Date Time Temp Pulse Resp B/P Pulse Ox O2 Delivery O2 Flow Rate FiO2 7/1/17 20:54 20 08/11/16 19:00 97.8 100 25 149/72 100 Nasal Cannula 2 100 08/11/16 16:36 97.4 127 22 114/60 100 Nasal Cannula 2 08/11/16 16:28 97.4 129 24 85/54 100 Nasal Cannula 2 08/11/16 16:21 129 22 92/56 98 Nasal Cannula 2 08/11/16 16:16 128 22 86/53 100 Nasal Cannula 2 08/11/16 16:07 97.5 118 22 83/53 100 Nasal Cannula 2 08/11/16 16:01 97.6 103 22 91/54 100 Nasal Cannula 2 08/11/16 15:57 104 22 93/52 100 Nasal Cannula 2 08/11/16 15:50 101 22 91/61 100 Nasal Cannula 2 08/11/16 15:45 101 22 75/46 98 Nasal Cannula 2 08/11/16 15:10 97.6 117 22 121/58 100 Nasal Cannula 2 08/11/16 15:01 97.5 109 22 128/60 100 Nasal Cannula 2 08/11/16 14:50 97.6 104 22 114/57 99 Nasal Cannula 2 08/11/16 14:50 97.8 104 22 126/57 100 Nasal Cannula 2 08/11/16 14:46 97.8 106 22 94/54 98 Room Air 08/11/16 14:38 97.8 109 22 88/50 98 Room Air 08/11/16 14:31 97.6 113 80/51 97 Room Air 08/11/16 14:18 22 99 Room Air 08/11/16 14:10 97.7 119 22 86/56 93 Physical Exam 97.9 pulse 104 respirations 20 blood pressure 134/66 sats 100% on 2 L nasal cannula. GENERAL: Well-nourished, well-developed slightly pale appearing patient who is sitting up in ISC bed, alert and conversant. SKIN: Warm and dry. HEAD: Atraumatic. Normocephalic. EYES: Pupils equal and round, 2 mm reactive. No scleral icterus. No injection or drainage. ENT: No nasal bleeding or discharge. Mucous membranes pink and moist. NECK: Trachea midline. No JVD. CARDIOVASCULAR: Regular rate and rhythm. No murmurs rubs or gallops. RESPIRATORY: No accessory muscle use. Clear to auscultation. Breath sounds equal bilaterally. GASTROINTESTINAL: Abdomen soft, dressing in place midline with very scant blood staining, bowel sounds hypoactive, Additional dressing in place LUQ with SHWETHA drain with bloody output ~50 cc. : Estrada in place with 60 cc of yellow urine output. MUSCULOSKELETAL: Extremities without clubbing, cyanosis, or edema. No obvious deformities. NEUROLOGICAL: Awake and alert. No obvious cranial nerve deficits. Motor grossly within normal limits. Normal speech. Oriented x4 Laboratory Laboratory Tests Test 08/11/16 08/11/16 08/11/16 08/11/16 06:10 14:20 14:25 15:44 Blood Gas Puncture Site DRAWN IN OR Blood Gas Patient Temperature 98.6 Blood Gas HCO3 20 Blood Gas Base Excess -3.3 Blood Gas Oxygen Saturation 96 Arterial Blood pH 7.45 Arterial Blood Partial 29 Pressure CO2 Arterial Blood Partial 235 Pressure O2 Arterial Blood Oxygen Content 11.9 Arterial Blood 2.4 Carboxyhemoglobin Arterial Blood Methemoglobin 1.2 Blood Gas Hemoglobin 8.3 White Blood Count 10.4 Red Blood Count 2.36 Hemoglobin 7.7 Hematocrit 21.8 Mean Corpuscular Volume 92.5 Mean Corpuscular Hemoglobin 32.8 Mean Corpuscular Hemoglobin 35.5 Concent Red Cell Distribution Width 13.5 Platelet Count 224 Mean Platelet Volume 7.5 Neutrophils (%) (Auto) 64.2 Lymphocytes (%) (Auto) 19.0 Monocytes (%) (Auto) 12.9 Eosinophils (%) (Auto) 3.4 Basophils (%) (Auto) 0.5 Neutrophils # (Auto) 6.7 Lymphocytes # (Auto) 2.0 Monocytes # (Auto) 1.3 Eosinophils # (Auto) 0.4 Basophils # (Auto) 0.0 CBC Comment DIFF FINAL Differential Comment Prothrombin Time 10.7 Prothromb Time International 1.0 Ratio Activated Partial 25.0 Thromboplast Time Sodium Level 137 Potassium Level 3.5 Chloride Level 105 Carbon Dioxide Level 24.7 Anion Gap 7 Blood Urea Nitrogen 14 Creatinine 0.82 Estimat Glomerular Filtration 71 Rate Random Glucose 162 Lactic Acid Level 3.0 Calcium Level 7.3 Protein Corrected Calcium 8.4 Total Bilirubin 0.3 Aspartate Amino Transf 10 (AST/SGOT) Alanine Aminotransferase 16 (ALT/SGPT) Alkaline Phosphatase 40 Total Protein 5.1 Albumin 2.6 Lipase 68 Blood Type O POSITIVE Antibody Screen NEGATIVE Crossmatch Leukocyte-Reduced Leukocyte-Reduced Leukocyte-Reduced Red Blood Red Blood Red Blood Cells Cells Cells Blood Bank Comment Test 08/11/16 08/11/16 16:05 19:23 Crossmatch Leukocyte-Reduced Red Blood Cells Blood Bank Comment White Blood Count 18.0 Red Blood Count 4.23 Hemoglobin 12.7 Hematocrit 37.1 Mean Corpuscular Volume 87.8 Mean Corpuscular Hemoglobin 30.1 Mean Corpuscular Hemoglobin 34.3 Concent Red Cell Distribution Width 16.5 Platelet Count 91 Mean Platelet Volume 7.0 Sodium Level 140 Potassium Level 4.1 Chloride Level 106 Carbon Dioxide Level 25.4 Anion Gap 9 Blood Urea Nitrogen 13 Creatinine 0.75 Estimat Glomerular Filtration 79 Rate Random Glucose 161 Calcium Level 6.4 Protein Corrected Calcium 7.8 Magnesium Level 1.5 Total Protein 4.3 Result Diagram: 08/11/16192208/11/161922 Assessment and Plan Problem List: (1) Hemoperitoneum ICD Code: K66.1 Status: Acute (2) Splenic rupture ICD Code: S36.09XA Status: Acute (3) Intraperitoneal hemorrhage ICD Code: K66.1 Status: Acute (4) Shock Status: Resolved (5) H/O: HTN (hypertension) ICD Code: Z86.79 Status: Chronic (6) Thrombocytopenia ICD Code: D69.6 Status: Acute (7) Leukocytosis ICD Code: D72.829 Status: Acute (8) Anxiety ICD Code: F41.9 Status: Chronic (9) Acute blood loss anemia ICD Code: D62 Status: Acute (10) Hyperglycemia ICD Code: R73.9 Status: Acute (11) Pain, postoperative, acute ICD Code: G89.18 Status: Acute Assessment and Plan NEURO: Postoperative pain Anxiety Dilaudid CAT DOG OR OTHER PET GROOMER Home med : Xanax 1 mg po q 6 hours on hold for now while on dilaudid. RESP: She is on 2 L nasal cannula with sats 100% so will start to wean as tolerated. Incentive spirometry every hour awake CV: Hemorrhagic shock (resolved) Essential HTN baseline Monitor hemodynamics Hold lisinopril 10 po daily for now. GI: Splenic rupture with hemoperitoneum Capsular tear liver Status post exploratory laparotomy, splenectomy, repair of capsular tear of liver Adhesions sigmoid and L ovary noted intraoperatively. Splenic rupture known complication of diagnostic colonoscopy. SHWETHA drain in place, monitor output. NGT to LAURAWS. Eventual diet advancement per general surgery, Dr. Hinton FEN/RENAL: Hypocalcemia Estrada in place. Monitor intake and output carefully, I/O q1 hour for first 8 hours. Monitor electrolytes and replace as indicated per ICU electrolyte replacement protocol. Increase LR 125/hr. Hypocalcemia likely secondary to blood products, Calcium gluconate 2 gram IV ID: Reactive leukocytosis. WBC 18 now Monitor for signs and symptoms of infection Splenectomy vaccines will be needed. HEME: Acute blood loss anemia Acute thrombocytopenia, consumptive following acute blood loss Presenting Hgb was 7.7, clinically in hemorrhagic shock. Received 6 units packed red cells, 4 units FFP, 1 unit platelets, 1200 Cell Saver on 08/11. Postoperative hemoglobin is 12.7. Platelets are 91. Will reevaluate CBC in a.m. Coags are normal. Will check fibrinogen. ENDO: Mild stress hyperglycemia. Monitor bedside glucose and initiate low-dose insulin sliding scale as indicated. PROPH: SCDs for DVT prophylaxis. Pharmacologic DVT prophylaxis when appropriate per Dr. Hinton. Protonix for stress ulcer prophylaxis. ACCESS: She has 2 large bore IV, total of 3 piv. Patient and her were updated at bedside. Level 3 consult Aileen Melendrez MD Aug 11, 2016 21:07
[2016-08-11] MEDS ORDERED: POTASSIUM CHLOR 40 MEQ PREMIX 100 ML IV PRN ×2 (22:00)
[2016-08-11] MEDS ORDERED: MAGNESIUM OXIDE 400 MG TAB PO PRN (22:00)
[2016-08-11] MEDS ORDERED: POTASSIUM PHOSPHATE MONOBASIC 500 MG TAB PO PRN (22:00)
[2016-08-11] MEDS ORDERED: SODIUM PHOSPHATE INJ 30 MMOL in SODIUM CHLOR 0.9% 250 ML INJ 240 ML IV PRN (22:00)
[2016-08-11] MEDS ORDERED: POTASSIUM PHOSPHATE INJ 30 MMOL in SODIUM CHLOR 0.9% 250 ML INJ 250 ML IV PRN (22:00)
[2016-08-11] MEDS ORDERED: MAGNESIUM SULFATE INJ 2 GM in SODIUM CHLORIDE 0.9% INJ 96 ML IV PRN (22:00)
[2016-08-11] MEDS ORDERED: POTASSIUM PHOSPHATE MONOBASIC 500 MG TAB PO/TUBE PRN (22:00)
[2016-08-11] MEDS ORDERED: POTASSIUM CHLORIDE 25 MEQ EFFERVESCENT TAB PO PRN (22:00)
[2016-08-11] MEDS ORDERED: MAGNESIUM SULFATE INJ 4 GM in SODIUM CHLORIDE 0.9% INJ 92 ML IV PRN (22:00)
[2016-08-11] MEDS ORDERED: POTASSIUM CHLOR 20 MEQ PREMIX 100 ML IV PRN ×2 (22:00)
[2016-08-11] MEDS: ACETAMINOPHEN 1000 MG/100 ML VIAL IV SCH (22:28)
[2016-08-11] MEDS: SODIUM CHLORIDE 0.9% FLUSH 10 ML FLUSH IV FLUSH SCH (22:29)
[2016-08-11] MEDS: PCA - TOTAL MG DILAUDID DELIVERED PER SHIFT OTHER SCH (22:30)
[2016-08-11 22:44] LABS: PROTHROMBIN TIME - PATIENT 11.1 SEC (9.8-11.6)
[2016-08-12] VITALS (12 sets, daily range): BP systolic 129–147; BP diastolic 62–83; PULSE 97–115; RESP 15–20; TEMP 98.2–98.6; O2SAT 96–100
[2016-08-12] MEDS: ONDANSETRON HCL 4 MG/2 ML VIAL IV PRN (00:19)
[2016-08-12] MEDS: ACETAMINOPHEN 1000 MG/100 ML VIAL IV SCH ×3 (00:20→12:51)
[2016-08-12 04:15] LABS: AUTOMATED NEUTROPHIL # 7.8 TH/MM3 (1.8-7.7); BASOPHIL % 0.2 % (0.0-2.0); HEMATOCRIT 24.4 % (35.0-46.0); LYMPH % 7.3 % (9.0-44.0); LYMPHOCYTE # 0.7 TH/MM3 (1.0-4.8); MEAN CELL VOLUME 89.1 FL (80.0-100.0); MEAN CORPUSCULAR HGB CONC 33.6 % (32.0-36.0); MONO % 13.8 % (0.0-8.0); NEUT % 78.7 % (16.0-70.0); PLATELET COUNT 75 TH/MM3 (150-450); RED BLOOD COUNT 2.74 MIL/MM3 (4.00-5.30); RED CELL DISTRIBUTION WIDTH 17.1 % (11.6-17.2); WHITE BLOOD COUNT 9.9 TH/MM3 (4.0-11.0)
[2016-08-12] MEDS: LACTATED RINGER'S 1000 ML INJ 1,000 ML IV SCH ×3 (04:19→20:51)
[2016-08-12 04:20] LABS: HEMO FLAGS DIFF FINAL
[2016-08-12 04:48] LABS: BICARBONATE 20.2 MEQ/L (21.0-32.0)
[2016-08-12 04:49] LABS: POTASSIUM 4.3 MEQ/L (3.5-5.1)
[2016-08-12 05:01] LABS: CALCIUM-PROTEIN CORRECTED 8.3 MG/DL (8.5-10.1)
[2016-08-12] MEDS ORDERED: CALCIUM GLUCONATE INJ 2 GM in DEXTROSE 5% IN WATER 100ML INJ 100 ML IV ONE ×2 (05:15)
[2016-08-12] MEDS ORDERED: SODIUM CHLORID 0.9% 500 ML INJ 500 ML IV ONE (05:15)
[2016-08-12] MEDS: ALPRAZolam 0.5 MG TAB PO PRN ×3 (05:33→20:52)
--- NOTE | 2016-08-12 05:37 | RADRPT ---
EXAM DATE/TIME: 08/12/2016 04:13 [place] COMPARISON: No previous studies available for comparison. INDICATIONS : Shortness of breath MEDICAL HISTORY : Hypertension. SURGICAL HISTORY : Appendectomy. ENCOUNTER: Initial ACUITY: 3 days PAIN SCORE: 6/10 LOCATION: Bilateral chest FINDINGS: A single view of the chest demonstrates the lungs to be symmetrically aerated without evidence of mas s, infiltrate or effusion. The cardiomediastinal contours are unremarkable. Osseous structures are intact. CONCLUSION: Normal examination. Aston Lyons MD on August 12, 2016 at 5:35 Board Certified Radiologist. This report was verified electronically.
[2016-08-12] MEDS: PCA - TOTAL MG DILAUDID DELIVERED PER SHIFT OTHER SCH ×3 (05:56→22:00)
--- NOTE | 2016-08-12 06:10 | MP ---
cc: ANABEL GENAO M.D. DATE OF SURGERY: 08/11/2016 PREOPERATIVE DIAGNOSIS Splenic laceration with hemorrhagic shock. POSTOPERATIVE DIAGNOSIS Splenic laceration with hemorrhagic shock. Capsule of liver tear. OPERATION Exploratory laparotomy, splenectomy, repair of liver capsular tear. SURGEON Dr. Anabel Genao ANESTHESIA General INDICATIONS Very pleasant 60-year-old woman who has had left lower quadrant pain. She underwent colonoscopy yesterday for evaluation and felt poorly after the procedure. She went home and gradually deteriorated, developing lightheadedness and increasing abdominal pain and distension. She was brought emergently to the hospital where she ultimately was found to be anemic and have massive hemoperitoneum with splenic laceration. INTRAOPERATIVE FINDINGS Greater than 3 liters of blood in the abdomen, spleen removed and sent to pathology. Lateral tear of liver capsule possibly associated with [id number] adhesion. There was a left lower quadrant mass intimately involved with the sigmoid colon and left ovary which was left alone. ESTIMATED BLOOD LOSS Greater than 3 liters. DESCRIPTION OF PROCEDURE IN DETAIL The patient identified as Coleen Moreno, taken to the operating room, placed in supine position. Sequential compression devices were placed on bilateral lower extremities. Following induction of adequate general endotracheal anesthesia, Estrada catheter was placed and the patient's abdomen was prepped and draped in usual sterile fashion with ChloraPrep. Time-out procedure was performed. Following completion of time-out procedure to everyone's satisfaction within the room, upper midline incision was carried out with a scalpel below the umbilicus. Dissection continued posteriorly through the midline fascia and the peritoneum was entered. Massive hemoperitoneum was encountered. A large amount of blood and blood clot was brought out through the midline wound. Cell saver was used. Approximately ultimately 1200 cc of cell saver blood was returned to the patient. Laparotomy pads were placed in the left upper quadrant and bleeding points along the greater curvature of the stomach where the spleen had evulsed from the short gastric vessels were made hemostatic with interrupted 3-0 and 2-0 silk sutures. There was bleeding from what appeared to be one of the vessels off the spleen which appears to have a avulsed. It appeared to be splenic vein and this was ligated with 2-0 Vicryl ligature and suture ligated with 3-0 silk suture ligature. The spleen was then amputated from a secondary vessel and passed off the field for pathologic evaluation. 2-0 Vicryl ligatures, 3-0 silk and 2-0 silk pop-off were used for hemostasis. Large amount of laparotomy pads were placed in the left upper quadrant and the remainder of the abdomen was surveyed. There was blood in the right upper quadrant adjacent to the liver. This was suctioned out and laparotomy pads were placed and a capsular tear of the right lateral lobe of liver was identified. It was controlled with electrocautery and Surgicel SNoW and direct pressure. The loops of bowel were examined. There was no injury. A moderate amount of blood in the pelvis as suctioned out and irrigation ensued. In the left lower quadrant there was a palpable mass. It was intimately involving the sigmoid colon and the left ovary which I could not identify. Due to the emergent nature of the surgery and the massive blood loss, I did not feel further operative intervention regarding this mass was warranted. Attention was returned to both the right and left upper quadrants. To ensure that hemostasis was achieved, Surgicel SNoW was placed over raw areas in the splenic bed. The pancreas was identified and was apparently uninjured. Small areas of blood clot in the lesser sac were removed. No apparent hemorrhage was occurring. Seprafilm was placed down in the lower abdomen. As we anticipate, the patient may require further surgery and few adhesions where the sigmoid colon and left ovary where more simple would be to access that space. The omentum was draped over the intestine in the midline and the fascial incision was closed with running single-stranded #1 PDS sutures. The wound was irrigated with saline. Small bleeding points were controlled with electrocautery and the skin was approximated with surgical jermaine. A dry sterile dressing was placed. Prior to closure, due to the severity of the injury, a drain was placed into the left upper quadrant. A 3-0 nylon drain stitch was used to secure the drain at the level of the skin. Dry sterile dressings were placed. The patient was hemodynamically stable at the end of the case, not on pressor agents. Sponge, needle, instrument counts correct at the end of the case. No additional blood or blood product outside of the cell saver blood given back to the patient was provided. Postoperative labs will be obtained. The patient was returned to the recovery area in stable condition. The patient did have a nasogastric tube placed and its position was confirmed intraoperatively manually. MD AMINATA Moyer/ANTONIO /6:49 PM /5:46 AM
[2016-08-12] MEDS: HYDROmorphone HCL PCA 6 MG/30 ML IV SCH (06:36)
[2016-08-12] MEDS: SODIUM CHLORIDE 0.9% FLUSH 10 ML FLUSH IV FLUSH SCH ×2 (08:16→20:51)
--- NOTE | 2016-08-12 09:01 | HHI.PR ---
Subjective Subjective Notes awake, alert, abdominal pain like menstrual cramps. Anxious, did get xanax. C/O soreness in throat more than anything Objective Vitals/I&O Vital Signs Date Time Temp Pulse Resp B/P Pulse Ox O2 Delivery O2 Flow Rate FiO2 08/12/16 08:00 97 08/12/16 08:00 98.3 18 147/71 99 08/12/16 07:00 Room Air 21 08/11/16 19:30 2 Labs Laboratory Tests Test 08/11/16 08/11/16 08/11/16 08/11/16 14:20 14:25 15:44 16:05 White Blood Count 10.4 Red Blood Count 2.36 Hemoglobin 7.7 Hematocrit 21.8 Mean Corpuscular Volume 92.5 Mean Corpuscular Hemoglobin 32.8 Mean Corpuscular Hemoglobin 35.5 Concent Red Cell Distribution Width 13.5 Platelet Count 224 Mean Platelet Volume 7.5 Neutrophils (%) (Auto) 64.2 Lymphocytes (%) (Auto) 19.0 Monocytes (%) (Auto) 12.9 Eosinophils (%) (Auto) 3.4 Basophils (%) (Auto) 0.5 Neutrophils # (Auto) 6.7 Lymphocytes # (Auto) 2.0 Monocytes # (Auto) 1.3 Eosinophils # (Auto) 0.4 Basophils # (Auto) 0.0 CBC Comment DIFF FINAL Differential Comment Prothrombin Time 10.7 Prothromb Time International 1.0 Ratio Activated Partial 25.0 Thromboplast Time Sodium Level 137 Potassium Level 3.5 Chloride Level 105 Carbon Dioxide Level 24.7 Anion Gap 7 Blood Urea Nitrogen 14 Creatinine 0.82 Estimat Glomerular Filtration 71 Rate Random Glucose 162 Lactic Acid Level 3.0 Calcium Level 7.3 Protein Corrected Calcium 8.4 Total Bilirubin 0.3 Aspartate Amino Transf 10 (AST/SGOT) Alanine Aminotransferase 16 (ALT/SGPT) Alkaline Phosphatase 40 Total Protein 5.1 Albumin 2.6 Lipase 68 Blood Type O POSITIVE Antibody Screen NEGATIVE Crossmatch Leukocyte-Reduced Leukocyte-Reduced Leukocyte-Reduced Leukocyte- Reduced Red Blood Red Blood Red Blood Red Blood Cells Cells Cells Cells Blood Bank Comment Test 08/11/16 08/11/16 08/11/16 08/12/16 19:23 20:15 22:04 03:30 White Blood Count 18.0 9.9 Red Blood Count 4.23 2.74 Hemoglobin 12.7 8.2 Hematocrit 37.1 24.4 Mean Corpuscular Volume 87.8 89.1 Mean Corpuscular Hemoglobin 30.1 30.0 Mean Corpuscular Hemoglobin 34.3 33.6 Concent Red Cell Distribution Width 16.5 17.1 Platelet Count 91 75 Mean Platelet Volume 7.0 7.8 Sodium Level 140 140 Potassium Level 4.1 4.3 Chloride Level 106 108 Carbon Dioxide Level 25.4 20.2 Anion Gap 9 12 Blood Urea Nitrogen 13 10 Creatinine 0.75 0.30 Estimat Glomerular Filtration 79 226 Rate Random Glucose 161 78 Calcium Level 6.4 6.1 Protein Corrected Calcium 7.8 8.3 Magnesium Level 1.5 Troponin I 0.02 Total Protein 4.3 3.0 Nasal Screen MRSA (PCR) MRSA NOT DETECTED Prothrombin Time 11.1 Prothromb Time International 1.0 Ratio Fibrinogen 194 Neutrophils (%) (Auto) 78.7 Lymphocytes (%) (Auto) 7.3 Monocytes (%) (Auto) 13.8 Eosinophils (%) (Auto) 0.0 Basophils (%) (Auto) 0.2 Neutrophils # (Auto) 7.8 Lymphocytes # (Auto) 0.7 Monocytes # (Auto) 1.4 Eosinophils # (Auto) 0.0 Basophils # (Auto) 0.0 CBC Comment DIFF FINAL Differential Comment Cardiovascular: Regular Lungs: Clear Abdomen: Non-distended, Other (dressing dry with m inimnal drainage. Drain with serosanguinous drainage.), Post-op tenderness Extremities: No edema, Perfused, SCD's on A/P Assessment and Plan POD 1 s/p exp lap splenectomy, repair liver capsular tear for massive hemoperitoneum, one day psot colonoscopy. LLQ mass, sigmoid colon and L ovary, known h/o diverticulitis/osis. Plan- DC NG done-output was minimal. OOB to chair. Clears. Follow CBC at 1400 and in AM. D/W patient, sister and bedside RN. Keep in ISC today. Francisco Hinton MD Aug 12, 2016 09:01
--- NOTE | 2016-08-12 13:28 | EKG ---
Date Performed: 08/11/2016 Time Performed: 14:19:14 PTAGE: 60 years EKG: SINUS TACHYCARDIA WITH SHORT CO INTERVAL ABNORMAL RHYTHM ECG NO PREVIOUS TRACING Compared to prior tracing no significant change DOCTOR: Azucena Shelton Interpretating Date/Time 08/12/2016 13:21:34
--- NOTE | 2016-08-12 13:58 | HHI.CCPN ---
Subjective Remarks/Hospital Course 08/11: 60-year-old female with past medical history of hypertension who states she has had intermittent left-sided abdominal pain "for many months". She states that she had been evaluated by her geophysical engineer for her abdominal pain and that an ultrasound had been performed. She states that her ultrasound showed some abnormality of the colon and thus colonoscopy was recommended. She underwent colonoscopy 08/10/[address] Chavez. She did have some abdominal pain post colonoscopy which was initially attributed to gas insufflation. However she became increasingly dizzy and short of breath and her contacted 911. She was hypotensive but fluid responsive. When she arrived to [facility] emergency Department a CT abdomen was obtained and was consistent with splenic rupture. There was splenic enlargement with hemoperitoneum. She has undergone exploratory laparotomy by Dr. Francisco Hinton with repair of capsular tear of the liver. According to ED blood transfusion records she has received 6 units packed red cells, 4 units FFP, 1 unit of platelets preoperatively. In OR she received 1200 Cell Saver, 3600 crystalloid. EBL was 3 L. Urine output was 200. Dr. Melendrez evaluated her postoperatively in [facility] where her urine output for the first hour is 60 mL. 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 08/12: Resting in bed comfortably. Complains of some pain at her surgical site or abdomen. Denies any shortness of breath or nausea. Objective Vital Signs Date Time Temp Pulse Resp B/P Pulse Ox O2 Delivery O2 Flow Rate FiO2 08/12/16 12:00 106 08/12/16 12:00 98.6 20 140/68 98 08/12/16 07:00 Room Air 21 08/11/16 19:30 2 Intake and Output 08/11/16 08/11/16 08/12/16 08:00 16:00 00:00 Intake Total 660 ml 23205 ml Output Total 3790 ml Balance 660 ml 8453 ml Result Diagram: 08/12/16 0330 08/12/16 0330 Other Results Laboratory Tests Test 08/11/16 08/11/16 08/11/16 08/11/16 14:20 14:25 15:44 16:05 White Blood Count 10.4 TH/MM3 Red Blood Count 2.36 MIL/MM3 Hemoglobin 7.7 GM/DL Hematocrit 21.8 % Mean Corpuscular Volume 92.5 FL Mean Corpuscular Hemoglobin 32.8 PG Mean Corpuscular Hemoglobin 35.5 % Concent Red Cell Distribution Width 13.5 % Platelet Count 224 TH/MM3 Mean Platelet Volume 7.5 FL Neutrophils (%) (Auto) 64.2 % Lymphocytes (%) (Auto) 19.0 % Monocytes (%) (Auto) 12.9 % Eosinophils (%) (Auto) 3.4 % Basophils (%) (Auto) 0.5 % Neutrophils # (Auto) 6.7 TH/MM3 Lymphocytes # (Auto) 2.0 TH/MM3 Monocytes # (Auto) 1.3 TH/MM3 Eosinophils # (Auto) 0.4 TH/MM3 Basophils # (Auto) 0.0 TH/MM3 CBC Comment DIFF FINAL Differential Comment Prothrombin Time 10.7 SEC Prothromb Time International 1.0 RATIO Ratio Activated Partial 25.0 SEC Thromboplast Time Sodium Level 137 MEQ/L Potassium Level 3.5 MEQ/L Chloride Level 105 MEQ/L Carbon Dioxide Level 24.7 MEQ/L Anion Gap 7 MEQ/L Blood Urea Nitrogen 14 MG/DL Creatinine 0.82 MG/DL Estimat Glomerular Filtration 71 ML/MIN Rate Random Glucose 162 MG/DL Lactic Acid Level 3.0 mmol/L Calcium Level 7.3 MG/DL Protein Corrected Calcium 8.4 MG/DL Total Bilirubin 0.3 MG/DL Aspartate Amino Transf 10 U/L (AST/SGOT) Alanine Aminotransferase 16 U/L (ALT/SGPT) Alkaline Phosphatase 40 U/L Total Protein 5.1 GM/DL Albumin 2.6 GM/DL Lipase 68 U/L Blood Type O POSITIVE Antibody Screen NEGATIVE Crossmatch Leukocyte-Reduced Leukocyte-Reduced Leukocyte-Reduced Leukocyte- Reduced Red Blood Red Blood Red Blood Red Blood Cells Cells Cells Cells Blood Bank Comment Test 08/11/16 08/11/16 08/11/16 08/12/16 19:23 20:15 22:04 03:30 White Blood Count 18.0 TH/MM3 9.9 TH/MM3 Red Blood Count 4.23 MIL/MM3 2.74 MIL/MM3 Hemoglobin 12.7 GM/DL 8.2 GM/DL Hematocrit 37.1 % 24.4 % Mean Corpuscular Volume 87.8 FL 89.1 FL Mean Corpuscular Hemoglobin 30.1 PG 30.0 PG Mean Corpuscular Hemoglobin 34.3 % 33.6 % Concent Red Cell Distribution Width 16.5 % 17.1 % Platelet Count 91 TH/MM3 75 TH/MM3 Mean Platelet Volume 7.0 FL 7.8 FL Sodium Level 140 MEQ/L 140 MEQ/L Potassium Level 4.1 MEQ/L 4.3 MEQ/L Chloride Level 106 MEQ/L 108 MEQ/L Carbon Dioxide Level 25.4 MEQ/L 20.2 MEQ/L Anion Gap 9 MEQ/L 12 MEQ/L Blood Urea Nitrogen 13 MG/DL 10 MG/DL Creatinine 0.75 MG/DL 0.30 MG/DL Estimat Glomerular Filtration 79 ML/MIN 226 ML/MIN Rate Random Glucose 161 MG/DL 78 MG/DL Calcium Level 6.4 MG/DL 6.1 MG/DL Protein Corrected Calcium 7.8 MG/DL 8.3 MG/DL Magnesium Level 1.5 MG/DL Troponin I 0.02 NG/ML Total Protein 4.3 GM/DL 3.0 GM/DL Nasal Screen MRSA (PCR) MRSA NOT DETECTED Prothrombin Time 11.1 SEC Prothromb Time International 1.0 RATIO Ratio Fibrinogen 194 mg/dL Neutrophils (%) (Auto) 78.7 % Lymphocytes (%) (Auto) 7.3 % Monocytes (%) (Auto) 13.8 % Eosinophils (%) (Auto) 0.0 % Basophils (%) (Auto) 0.2 % Neutrophils # (Auto) 7.8 TH/MM3 Lymphocytes # (Auto) 0.7 TH/MM3 Monocytes # (Auto) 1.4 TH/MM3 Eosinophils # (Auto) 0.0 TH/MM3 Basophils # (Auto) 0.0 TH/MM3 CBC Comment DIFF FINAL Differential Comment Imaging Last Impressions Chest X-Ray 08/12/16 0600 Signed Impressions: Service Date/Time: Friday, August 12, 2016 04:13 - CONCLUSION: Normal examination. Aston Lyons MD Abdomen/Pelvis CT 08/11/16 1415 Signed Impressions: Service Date/Time: Thursday, August 11, 2016 15:24 - CONCLUSION: 1. Splenic enlargement and hemorrhage which appears to be predominantly subcapsular measuring up to 11.3 cm in diameter with moderate hemoperitoneum. The IVC is flattened consistent with low fluid volume. Clive Gallego MD Objective Remarks 97.9 pulse 104 respirations 20 blood pressure 134/66 sats 100% on 2 L nasal cannula. GENERAL: Well-nourished, well-developed slightly pale appearing patient who is sitting up in ISC bed, alert and conversant. SKIN: Warm and dry. HEAD: Atraumatic. Normocephalic. EYES: Pupils equal and round, 2 mm reactive. No scleral icterus. No injection or drainage. ENT: No nasal bleeding or discharge. Mucous membranes pink and moist. NECK: Trachea midline. No JVD. CARDIOVASCULAR: Regular rate and rhythm. No murmurs rubs or gallops. RESPIRATORY: No accessory muscle use. Clear to auscultation. Breath sounds equal bilaterally. GASTROINTESTINAL: Abdomen soft, dressing in place midline with very scant blood staining, bowel sounds hypoactive, Additional dressing in place LUQ with SHWETHA drain with bloody output ~50 cc. : Estrada in place with 60 cc of yellow urine output. MUSCULOSKELETAL: Extremities without clubbing, cyanosis, or edema. No obvious deformities. NEUROLOGICAL: Awake and alert. No obvious cranial nerve deficits. Motor grossly within normal limits. Normal speech. Oriented x4 A/P Problem List: (1) Hemoperitoneum ICD Code: K66.1 Status: Acute (2) Splenic rupture ICD Code: S36.09XA Status: Acute (3) Intraperitoneal hemorrhage ICD Code: K66.1 Status: Acute (4) Shock ICD Code: R57.9 Status: Resolved (5) H/O: HTN (hypertension) ICD Code: Z86.79 Status: Chronic (6) Thrombocytopenia ICD Code: D69.6 Status: Acute (7) Leukocytosis ICD Code: D72.829 Status: Acute (8) Anxiety ICD Code: F41.9 Status: Chronic (9) Acute blood loss anemia ICD Code: D62 Status: Acute (10) Hyperglycemia ICD Code: R73.9 Status: Acute (11) Pain, postoperative, acute ICD Code: G89.18 Status: Acute Assessment and Plan NEURO: Postoperative pain Anxiety 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 RESP: She is on 2 L nasal cannula with sats 100% so wean as tolerated. Incentive spirometry every hour awake CV: Hemorrhagic shock (resolved) Essential HTN baseline Monitor hemodynamics Hold lisinopril 10 po daily for now. GI: Splenic rupture with hemoperitoneum Capsular tear liver Status post exploratory laparotomy, splenectomy, repair of capsular tear of liver Adhesions sigmoid and L ovary noted intraoperatively. Splenic rupture known complication of diagnostic colonoscopy. SHWETHA drain in place, monitor output. NGT removed per Dr. Hinton. Eventual diet advancement per general surgery, Dr. Hinton FEN/RENAL: Hypocalcemia Estrada in place. Monitor intake and output carefully, I/O q1 hour for first 8 hours. Monitor electrolytes and replace as indicated per ICU electrolyte replacement protocol. Increase LR 125/hr. Hypocalcemia likely secondary to blood products, Calcium gluconate 2 gram IV ID: Reactive leukocytosis. WBC 18 now Monitor for signs and symptoms of infection Splenectomy vaccines will be needed. HEME: Acute blood loss anemia Acute thrombocytopenia, consumptive following acute blood loss Presenting Hgb was 7.7, clinically in hemorrhagic shock. Received 6 units packed red cells, 4 units FFP, 1 unit platelets, 1200 Cell Saver on 08/11. Postoperative hemoglobin is 12.7. Platelets are 91. Coags normal. Follow CBC ENDO: Mild stress hyperglycemia. Monitor bedside glucose and initiate low-dose insulin sliding scale as indicated. PROPH: SCDs for DVT prophylaxis. Rheumatologic DVT prophylaxis when appropriate per Dr. Hinton. Protonix for stress ulcer prophylaxis. ACCESS: She has 2 large bore IV, total of 3 piv. Patient updated at bedside. Huber Mansfield MD Aug 12, 2016 13:58
[2016-08-12 17:58] LABS: HEMATOCRIT 35.1 % (35.0-46.0); MEAN CELL VOLUME 88.5 FL (80.0-100.0); MEAN CORPUSCULAR HEMOGLOBIN 29.1 PG (27.0-34.0); MEAN CORPUSCULAR HGB CONC 32.9 % (32.0-36.0); PLATELET COUNT 129 TH/MM3 (150-450); RED BLOOD COUNT 3.97 MIL/MM3 (4.00-5.30); RED CELL DISTRIBUTION WIDTH 17.6 % (11.6-17.2); REVIEW FLAG FINAL; WHITE BLOOD COUNT 16.1 TH/MM3 (4.0-11.0)
--- NOTE | 2016-08-12 19:21 | RADRPT ---
EXAM DATE/TIME: 08/12/2016 18:31 [facility] COMPARISON: No previous studies available for comparison. INDICATIONS : Left arm swelling. MEDICAL HISTORY : Hypertension. Anxiety. Claustrophobia. Carcinoma, basal cell. Carcinoma, pre melenoma. SURGICAL HISTORY : Appendectomy. Tubal ligation. Dilation and curettage. [place] teeth extraction. ENCOUNTER: Initial ACUITY: 1 day PAIN SCORE: 4/10 LOCATION: Left arm. FINDINGS: There is spontaneous flow documented in the brachial, basilic, cephalic, axillary, and subclavian vei ns. The vessels are compressible and augmentation response is documented. No filling defects are se en. The flow is phasic with respiration. Direction of flow in the jugular vein is caudal. CONCLUSION: No DVT. Khai Vasquez MD on August 12, 2016 at 19:18 Board Certified Radiologist. This report was verified electronically.
[2016-08-12] MEDS: PANTOPRAZOLE SODIUM 40 MG VIAL IV SCH (20:50)
[2016-08-13] VITALS (13 sets, daily range): BP systolic 134–155; BP diastolic 64–74; PULSE 99–122; RESP 18–29; TEMP 98.4–99.1; O2SAT 96–98
[2016-08-13] MEDS: ONDANSETRON HCL 4 MG/2 ML VIAL IV PRN ×2 (02:16→08:06)
[2016-08-13] MEDS: ALPRAZolam 0.5 MG TAB PO PRN (03:00)
[2016-08-13] MEDS: LACTATED RINGER'S 1000 ML INJ 1,000 ML IV SCH ×2 (03:00→12:28)
[2016-08-13 04:56] LABS: HEMATOCRIT 30.3 % (35.0-46.0); MEAN CELL VOLUME 88.4 FL (80.0-100.0); MEAN CORPUSCULAR HEMOGLOBIN 29.6 PG (27.0-34.0); MEAN CORPUSCULAR HGB CONC 33.5 % (32.0-36.0); PLATELET COUNT 126 TH/MM3 (150-450); RED BLOOD COUNT 3.43 MIL/MM3 (4.00-5.30); RED CELL DISTRIBUTION WIDTH 16.6 % (11.6-17.2); REVIEW FLAG FINAL
[2016-08-13 05:59] LABS: BICARBONATE 27.7 MEQ/L (21.0-32.0); POTASSIUM 4.2 MEQ/L (3.5-5.1)
[2016-08-13] MEDS: PCA - TOTAL MG DILAUDID DELIVERED PER SHIFT OTHER SCH ×3 (06:00→22:00)
[2016-08-13] MEDS: HYDROmorphone HCL PCA 6 MG/30 ML IV SCH (08:43)
[2016-08-13] MEDS: SODIUM CHLORIDE 0.9% FLUSH 10 ML FLUSH IV FLUSH SCH ×2 (09:58→22:30)
--- NOTE | 2016-08-13 14:45 | HHI.PR ---
Subjective Subjective Notes sitting up, feels no pain unless going from laying to sitting. Mild nausea, no emesis. Objective Vitals/I&O Vital Signs Date Time Temp Pulse Resp B/P Pulse Ox O2 Delivery O2 Flow Rate FiO2 08/13/16 14:00 18 08/13/16 12:00 99 08/13/16 12:00 98.6 138/69 97 08/13/16 07:00 Room Air 08/12/16 07:00 21 08/11/16 19:30 2 Labs Laboratory Tests Test 08/12/16 08/13/16 17:10 04:21 White Blood Count 16.1 18.0 Red Blood Count 3.97 3.43 Hemoglobin 11.6 10.2 Hematocrit 35.1 30.3 Mean Corpuscular Volume 88.5 88.4 Mean Corpuscular Hemoglobin 29.1 29.6 Mean Corpuscular Hemoglobin 32.9 33.5 Concent Red Cell Distribution Width 17.6 16.6 Platelet Count 129 126 Mean Platelet Volume 7.9 7.4 Sodium Level 137 Potassium Level 4.2 Chloride Level 104 Carbon Dioxide Level 27.7 Anion Gap 5 Blood Urea Nitrogen 6 Creatinine 0.43 Estimat Glomerular Filtration 149 Rate Random Glucose 79 Calcium Level 7.9 Cardiovascular: Regular Lungs: Clear Abdomen: Non-distended, Other (Few Bss. Dressing dry. Drainage serosanguinous.) , Post-op tenderness Extremities: Perfused, SCD's on, Other (Hands edematous due to IV infiltration. ) A/P Assessment and Plan POD 2 s/p exp lap splenectomy, repair liver capsular tear for massive hemoperitoneum, one day psot colonoscopy. LLQ mass, sigmoid colon and L ovary, known h/o diverticulitis/osis. Plan full liquids. Get OOB. BENITA avendaño tonight. Plan transfer to [address] [place] [address] tomorrow. AM CBC. Decrease IVFs. Francisco Hinton MD Aug 13, 2016 14:45
[2016-08-13] MEDS: ERYTHROMYCIN EC 250 MG TABEC PO SCH (17:26)
[2016-08-13] MEDS: PANTOPRAZOLE SODIUM 40 MG VIAL IV SCH (22:29)
[2016-08-14] VITALS (11 sets, daily range): BP systolic 126–156; BP diastolic 72–88; PULSE 102–129; RESP 16–27; TEMP 97.9–99.4; O2SAT 95–97
[2016-08-14 04:13] LABS: HEMATOCRIT 29.8 % (35.0-46.0); MEAN CELL VOLUME 89.1 FL (80.0-100.0); MEAN CORPUSCULAR HEMOGLOBIN 29.7 PG (27.0-34.0); MEAN CORPUSCULAR HGB CONC 33.3 % (32.0-36.0); PLATELET COUNT 178 TH/MM3 (150-450); RED BLOOD COUNT 3.35 MIL/MM3 (4.00-5.30); RED CELL DISTRIBUTION WIDTH 16.5 % (11.6-17.2); REVIEW FLAG FINAL; WHITE BLOOD COUNT 14.9 TH/MM3 (4.0-11.0)
[2016-08-14] MEDS: PCA - TOTAL MG DILAUDID DELIVERED PER SHIFT OTHER SCH ×3 (06:00→20:23)
[2016-08-14] MEDS: LACTATED RINGER'S 1000 ML INJ 1,000 ML IV SCH (06:36)
[2016-08-14] MEDS: ERYTHROMYCIN EC 250 MG TABEC PO SCH ×3 (08:52→17:06)
[2016-08-14] MEDS: SODIUM CHLORIDE 0.9% FLUSH 10 ML FLUSH IV FLUSH SCH ×2 (09:00→20:19)
--- NOTE | 2016-08-14 09:54 | HHI.PR ---
Subjective Subjective Notes Up in chair, tolerating ensure slowly, mixing it with milk. Comfortable. No flatus or BM yet. Objective Vitals/I&O Vital Signs Date Time Temp Pulse Resp B/P Pulse Ox O2 Delivery O2 Flow Rate FiO2 08/14/16 08:00 104 08/14/16 07:00 97 Room Air 08/14/16 04:00 98.3 25 135/79 08/12/16 07:00 21 08/11/16 19:30 2 Labs Laboratory Tests Test 08/14/16 03:18 White Blood Count 14.9 Red Blood Count 3.35 Hemoglobin 9.9 Hematocrit 29.8 Mean Corpuscular Volume 89.1 Mean Corpuscular Hemoglobin 29.7 Mean Corpuscular Hemoglobin 33.3 Concent Red Cell Distribution Width 16.5 Platelet Count 178 Mean Platelet Volume 7.8 Cardiovascular: Other (sinus tachycardia) Lungs: Clear Abdomen: Non-distended, Other (Dressing dry. drain with serosanguinous output, amount decreasing.), Post-op tenderness Extremities: Other (Hand edema resolving.) A/P Assessment and Plan POD 3 s/p exp lap splenectomy, repair liver capsular tear for massive hemoperitoneum, one day post colonoscopy. LLQ mass, sigmoid colon and L ovary, known h/o diverticulitis/osis. Transfer to floor today. Advance diet further with return of bowel function. Anticipate DC in next few days. Francisco Hinton MD Aug 14, 2016 09:54
[2016-08-14] MEDS: HYDROmorphone HCL PCA 6 MG/30 ML IV SCH (17:01)
[2016-08-14] MEDS: PANTOPRAZOLE SODIUM 40 MG VIAL IV SCH (20:19)
[2016-08-15 00:08] VITALS: BP 134/81; PULSE 117; RESP 17; TEMP 97.9; O2SAT 96
[2016-08-15] MEDS: LACTATED RINGER'S 1000 ML INJ 1,000 ML IV SCH (02:26)
[2016-08-15 04:29] VITALS: BP 143/82; PULSE 115; RESP 17; TEMP 98.4; O2SAT 94
[2016-08-15] MEDS: PCA - TOTAL MG DILAUDID DELIVERED PER SHIFT OTHER SCH (05:42)
[2016-08-15 07:12] LABS: BICARBONATE 25.3 MEQ/L (21.0-32.0); POTASSIUM 3.5 MEQ/L (3.5-5.1)
[2016-08-15] MEDS: LISINOPRIL 10 MG TAB PO SCH (07:44)
[2016-08-15] MEDS: SODIUM CHLORIDE 0.9% FLUSH 10 ML FLUSH IV FLUSH SCH ×2 (07:45→20:35)
[2016-08-15] MEDS: ERYTHROMYCIN EC 250 MG TABEC PO SCH ×3 (07:45→16:39)
[2016-08-15 08:00] VITALS: BP 135/86; PULSE 121; RESP 17; TEMP 98.3; O2SAT 95
--- NOTE | 2016-08-15 08:15 | HHI.PR ---
Subjective Subjective Notes Up in chair, has passed flatus, no BM, denies pain. Objective Vitals/I&O Vital Signs Date Time Temp Pulse Resp B/P Pulse Ox O2 Delivery O2 Flow Rate FiO2 08/15/16 08:00 98.3 121 17 135/86 95 08/14/16 20:30 Room Air 08/12/16 07:00 21 08/11/16 19:30 2 Labs Laboratory Tests Test 08/15/16 06:08 Sodium Level 134 Potassium Level 3.5 Chloride Level 99 Carbon Dioxide Level 25.3 Anion Gap 10 Blood Urea Nitrogen 7 Creatinine 0.31 Estimat Glomerular Filtration 218 Rate Random Glucose 91 Calcium Level 8.5 Magnesium Level 2.0 Cardiovascular: Other (sinus tachycarida, 110) Abdomen: Non-distended, Non-tender, Other (jermaine intact with minimal serous drainage,dressing changed. Drain with serosanguinous drainage.) Extremities: Other (hand edema improved.) A/P Assessment and Plan POD 4 s/p exp lap splenectomy, repair liver capsular tear for massive hemoperitoneum, one day post colonoscopy. LLQ mass, sigmoid colon and L ovary, known h/o diverticulitis/osis. 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 OK to shower. Walk halls. Hopeful to DC home tomorrow, remove drain prior to DC. Francisco Hinton MD Aug 15, 2016 08:15
[2016-08-15] MEDS: ACETAMINOPHEN/HYDROcodone 325 MG/5 MG TAB PO PRN (10:43)
[2016-08-15] MEDS: ONDANSETRON HCL 4 MG/2 ML VIAL IV PRN ×3 (10:43→22:55)
[2016-08-15 12:00] VITALS: BP 134/77; PULSE 114; RESP 16; TEMP 98.4; O2SAT 96
[2016-08-15 16:00] VITALS: BP 124/78; PULSE 121; RESP 19; TEMP 97; O2SAT 96
[2016-08-15 20:00] VITALS: BP 112/74; PULSE 122; RESP 18; TEMP 96.1; O2SAT 96
[2016-08-15] MEDS: PANTOPRAZOLE SODIUM 40 MG VIAL IV SCH (20:29)
[2016-08-15] MEDS: SODIUM CHLORIDE 0.9% FLUSH 10 ML FLUSH IV FLUSH PRN ×2 (20:31→22:55)
[2016-08-15] MEDS: ALPRAZolam 1 MG TAB PO PRN (20:38)
[2016-08-16] VITALS (7 sets, daily range): BP systolic 112–131; BP diastolic 65–80; PULSE 117–129; RESP 18–20; TEMP 97.5–100.1; O2SAT 93–96
[2016-08-16] MEDS: ACETAMINOPHEN/HYDROcodone 325 MG/5 MG TAB PO PRN ×2 (01:36→16:20)
[2016-08-16] MEDS: HYDROmorphone HCL PF 1 MG/ML VIAL IV PRN ×2 (05:57→17:42)
[2016-08-16] MEDS: SODIUM CHLORIDE 0.9% FLUSH 10 ML FLUSH IV FLUSH PRN (05:59)
--- NOTE | 2016-08-16 07:31 | HHI.PR ---
Subjective Subjective Notes Did not have a good day yesterday. Appetite poor, nausea. Drainage increased. Heart rate persistently up. Flatus, no BM. Walks halls. Objective Vitals/I&O Vital Signs Date Time Temp Pulse Resp B/P Pulse Ox O2 Delivery O2 Flow Rate FiO2 08/16/16 04:00 98.6 117 18 112/71 96 08/15/16 19:00 Room Air 08/12/16 07:00 21 Cardiovascular: Other (sinus tachycardia, HR about 120) Lungs: Clear Abdomen: Non-distended, Non-tender, Other (Incision remains clean and dry, no erythema. Drain with pink tinge, mostly serous fluid, I emptied about 150 ml this morning.) Extremities: Perfused, Other (Hand edema resolved.) A/P Assessment and Plan POD 5 s/p exp lap splenectomy, repair liver capsular tear for massive hemoperitoneum, one day post colonoscopy. LLQ mass, sigmoid colon and L ovary, known h/o diverticulitis/osis. Will check EKG, labs this morning. Drain to wall suction if needed. Restart IVFs. Drainage for amylase, lipase. Obviously, not going home today. Francisco Hinton MD Aug 16, 2016 07:31
[2016-08-16] MEDS: LACTATED RINGER'S 1000 ML INJ 1,000 ML IV SCH ×3 (08:06→23:30)
[2016-08-16] MEDS: SODIUM CHLORIDE 0.9% FLUSH 10 ML FLUSH IV FLUSH SCH ×2 (08:06→19:14)
[2016-08-16 08:48] LABS: AUTOMATED NEUTROPHIL # 12.3 TH/MM3 (1.8-7.7); BASOPHIL % 0.3 % (0.0-2.0); EOSINOPHIL # 0.2 TH/MM3 (0-0.4); EOSINOPHIL % 1.2 % (0.0-4.0); HEMATOCRIT 33.2 % (35.0-46.0); LYMPH % 5.8 % (9.0-44.0); LYMPHOCYTE # 0.9 TH/MM3 (1.0-4.8); MEAN CELL VOLUME 90.5 FL (80.0-100.0); MEAN CORPUSCULAR HEMOGLOBIN 29.4 PG (27.0-34.0); MEAN CORPUSCULAR HGB CONC 32.5 % (32.0-36.0); MONO % 15.9 % (0.0-8.0); NEUT % 76.8 % (16.0-70.0); PLATELET COUNT 393 TH/MM3 (150-450); RED BLOOD COUNT 3.67 MIL/MM3 (4.00-5.30)
[2016-08-16 08:52] LABS: AMYLASE 16 U/L (25-115); ANION GAP 10 MEQ/L (5-15); AST (GOT) 18 U/L (15-37); BICARBONATE 22.8 MEQ/L (21.0-32.0); BLOOD UREA NITROGEN 11 MG/DL (7-18); CHLORIDE 100 MEQ/L (98-107); GLOMERULAR FILTRATION RATE 172 ML/MIN (>89); POTASSIUM 3.8 MEQ/L (3.5-5.1); SODIUM (NA) 133 MEQ/L (136-145)
[2016-08-16 08:53] LABS: HEMO FLAGS AUTO DIFF
[2016-08-16 08:54] LABS: ALT (GPT) 18 U/L (10-53)
[2016-08-16 08:56] LABS: ALKALINE PHOSPHATASE 43 U/L (45-117); TOTAL BILIRUBIN ADULT 0.5 MG/DL (0.2-1.0)
[2016-08-16] MEDS: LISINOPRIL 10 MG TAB PO SCH (09:00)
[2016-08-16 09:47] LABS: BANDS 3 % (0-6); NEUTROPHIL # MANUAL DIFF 14.1 TH/MM3 (1.8-7.7); PLATELET ESTIMATE SMEAR NORMAL (NORMAL); PLATELET MORPHOLOGY NORMAL (NORMAL); POLYS (SEG NEUTROPHILS) 85 % (16-70); TOXIC GRANULATION 1+ (NORMAL); WBC DIFF SAMPLE 100
[2016-08-16 09:48] LABS: SCAN/DIFF FINAL DIFF MANUAL
[2016-08-16] MEDS: ACETAMINOPHEN 325 MG TAB PO PRN (11:33)
--- NOTE | 2016-08-16 18:18 | EKG ---
Date Performed: 08/16/2016 Time Performed: 08:12:55 PTAGE: 60 years EKG: SINUS TACHYCARDIA ABNORMAL RHYTHM ECG PREVIOUS TRACING : 08/11/2016 14.19 Compared to prior tracing no significant change DOCTOR: Azucena Shelton Interpretating Date/Time 08/16/2016 18:17:13
[2016-08-16] MEDS: PANTOPRAZOLE SODIUM 40 MG VIAL IV SCH (19:16)
[2016-08-16] MEDS ORDERED: IOHEXOL 350 MG/ML 10 ML VIAL (for RAD DIAG) IV ONE (20:03)
--- NOTE | 2016-08-16 20:49 | RADRPT ---
EXAM DATE/TIME: 08/16/2016 20:00 [facility] COMPARISON: CT ABDOMEN & PELVIS W/O CONTRAST, August 11, 2016, 15:24. CT ABDOMEN W CONTRAST, October 25, 2010, 1 4:46. INDICATIONS : Abdominal pain. Splenic rupture. IV CONTRAST: 75 cc Omnipaque 350 (iohexol) IV ORAL CONTRAST: No oral contrast ingested. RADIATION DOSE: 11.82 CTDIvol (mGy) MEDICAL HISTORY : Hypertension. SURGICAL HISTORY : Splenectomy. ENCOUNTER: Subsequent ACUITY: 4 - 6 days PAIN SCALE: 8/10 LOCATION: abdomen TECHNIQUE: Volumetric scanning of the abdomen was performed. Using automated exposure control and adjustment of the mA and/or kV according to patient size, radiation dose was kept as low as reasonably achievable to obtain optimal diagnostic quality images. DICOM format image data is available electronically for review and comparison. FINDINGS: Bilateral pleural effusions are new finding compared to prior CT, left larger than right. Left pleur al effusion measures 2.7 cm right pleural effusion measures 1.0 cm. There is associated consolidativ e atelectasis in the adjacent lower lungs. There are multiple low density lesions in the liver, oval in shape, measuring up to 1.5 cm, probably representing cysts, stable from prior. No calcified gall stones. No solid lesions seen. There is a surgical drain in the left upper quadrant at site of sple nectomy. There is thickening of the wall of small bowel loops adjacent to the splenectomy site and t here are multiple air-fluid levels in loops of small bowel throughout the abdomen. Small bowel loops measure up to 3.6 cm in dimension. The kidneys are symmetric in appearance without evidence of hydronephrosis. The adrenal glands, aort a are grossly intact. There is a mild free fluid tracking in the right paracolic gutter and beneath right hemidiaphragm. CONCLUSION: 1. Postoperative splenectomy with surgical drain in place. No significant free fluid at the surgical site. There is a mild amount of free fluid in the right abdomen tracking down the paracolic gutter. 2. New bilateral pleural effusions, left greater than right with associated compressive atelectasis. 3. Diffuse moderately dilated loops of small bowel with air-fluid levels suggesting ileus. There are several loops of small bowel in the left upper quadrant adjacent to the splenectomy site which also demonstrate moderate wall thickening, measuring up to 11 mm in thickness. Ricardo Montiel MD on August 16, 2016 at 20:40 Board Certified Radiologist. This report was verified electronically.
[2016-08-16] MEDS: ALPRAZolam 1 MG TAB PO PRN (21:41)
[2016-08-17] VITALS: BP 122/72; PULSE 120; RESP 18; TEMP 99.4; O2SAT 95
[2016-08-17 07:03] LABS: POTASSIUM 3.9 MEQ/L (3.5-5.1)
[2016-08-17 07:05] LABS: AUTOMATED NEUTROPHIL # 12.4 TH/MM3 (1.8-7.7); BASOPHIL % 0.3 % (0.0-2.0); EOSINOPHIL # 0.3 TH/MM3 (0-0.4); HEMATOCRIT 30.4 % (35.0-46.0); LYMPH % 6.3 % (9.0-44.0); MEAN CELL VOLUME 88.8 FL (80.0-100.0); MEAN CORPUSCULAR HEMOGLOBIN 29.7 PG (27.0-34.0); MEAN CORPUSCULAR HGB CONC 33.4 % (32.0-36.0); MONO % 15.7 % (0.0-8.0); NEUT % 75.7 % (16.0-70.0); PLATELET COUNT 559 TH/MM3 (150-450); RED BLOOD COUNT 3.43 MIL/MM3 (4.00-5.30); RED CELL DISTRIBUTION WIDTH 15.7 % (11.6-17.2); WHITE BLOOD COUNT 16.3 TH/MM3 (4.0-11.0)
[2016-08-17 07:06] LABS: HEMO FLAGS AUTO DIFF
[2016-08-17] MEDS: LACTATED RINGER'S 1000 ML INJ 1,000 ML IV SCH ×3 (07:30→21:12)
--- NOTE | 2016-08-17 07:40 | HHI.PR ---
Subjective Subjective Notes had an episode of sharp gas pains last night. Made NPO and a CT abdomen obtained, findings c/w ileus. Has small pleural effusions and some peritoneal fluid. Objective Vitals/I&O Vital Signs Date Time Temp Pulse Resp B/P Pulse Ox O2 Delivery O2 Flow Rate FiO2 08/17/16 00:00 99.4 120 18 122/72 95 08/15/16 19:00 Room Air Labs Laboratory Tests Test 08/16/16 08/17/16 08/17/16 08:24 05:35 05:55 White Blood Count 16.0 16.3 Red Blood Count 3.67 3.43 Hemoglobin 10.8 10.2 Hematocrit 33.2 30.4 Mean Corpuscular Volume 90.5 88.8 Mean Corpuscular Hemoglobin 29.4 29.7 Mean Corpuscular Hemoglobin 32.5 33.4 Concent Red Cell Distribution Width 16.0 15.7 Platelet Count 393 559 Mean Platelet Volume 7.2 7.1 Neutrophils (%) (Auto) 76.8 75.7 Lymphocytes (%) (Auto) 5.8 6.3 Monocytes (%) (Auto) 15.9 15.7 Eosinophils (%) (Auto) 1.2 2.0 Basophils (%) (Auto) 0.3 0.3 Neutrophils # (Auto) 12.3 12.4 Lymphocytes # (Auto) 0.9 1.0 Monocytes # (Auto) 2.5 2.6 Eosinophils # (Auto) 0.2 0.3 Basophils # (Auto) 0.0 0.0 CBC Comment AUTO DIFF AUTO DIFF Differential Total Cells 100 Counted Neutrophils % (Manual) 85 Band Neutrophils % 3 Lymphocytes % 3 Monocytes % 9 Neutrophils # (Manual) 14.1 Differential Comment FINAL DIFF MANUAL Toxic Granulation 1+ Platelet Estimate NORMAL Platelet Morphology Comment NORMAL Sodium Level 133 135 Potassium Level 3.8 3.9 Chloride Level 100 101 Carbon Dioxide Level 22.8 26.0 Anion Gap 10 8 Blood Urea Nitrogen 11 8 Creatinine 0.38 0.33 Estimat Glomerular Filtration 172 203 Rate Random Glucose 68 68 Calcium Level 7.8 7.6 Total Bilirubin 0.5 Aspartate Amino Transf 18 (AST/SGOT) Alanine Aminotransferase 18 (ALT/SGPT) Alkaline Phosphatase 43 Total Protein 4.8 Albumin 1.6 Amylase Level 16 Cardiovascular: Other (sinus tachycardia) Lungs: Clear Abdomen: Non-distended, Other (dressing dry and intact, no erythema.), Post-op tenderness Extremities: Perfused A/P Assessment and Plan POD 6 s/p exp lap splenectomy, repair liver capsular tear for massive hemoperitoneum, one day post colonoscopy. LLQ mass, sigmoid colon and L ovary, known h/o diverticulitis/osis. Labs, EKG OK. Ileus. Needs to walk halls, get protein in, D/W patient. Will have suppository available if desired. Francisco Hinton MD Aug 17, 2016 07:40
[2016-08-17] MEDS ORDERED: BISACODYL 10 MG SUPP RECTAL PRN (07:45)
[2016-08-17 08:00] VITALS: BP 140/70; PULSE 117; RESP 18; TEMP 98.6; O2SAT 95
[2016-08-17 08:11] LABS: TOXIC GRANULATION 1+ (NORMAL)
[2016-08-17 08:12] LABS: PLATELET ESTIMATE SMEAR HIGH (NORMAL); PLATELET MORPHOLOGY NORMAL (NORMAL); SCAN/DIFF AUTO DIFF CONFIRMED
[2016-08-17] MEDS: LISINOPRIL 10 MG TAB PO SCH (08:19)
[2016-08-17] MEDS: SODIUM CHLORIDE 0.9% FLUSH 10 ML FLUSH IV FLUSH SCH ×2 (08:20→21:12)
[2016-08-17] MEDS: ACETAMINOPHEN 325 MG TAB PO PRN (10:54)
[2016-08-17 12:00] VITALS: BP 136/74; PULSE 112; RESP 16; TEMP 96.8; O2SAT 97
[2016-08-17 16:00] VITALS: BP 138/73; PULSE 111; RESP 18; TEMP 97.6; O2SAT 96
[2016-08-17 20:00] VITALS: BP 136/72; PULSE 119; RESP 21; TEMP 96.8; O2SAT 96
[2016-08-17] MEDS: PANTOPRAZOLE SODIUM 40 MG VIAL IV SCH (21:12)
[2016-08-18] VITALS: BP 145/81; PULSE 112; RESP 22; TEMP 96.6; O2SAT 96
[2016-08-18 08:00] VITALS: BP 136/76; PULSE 108; RESP 16; TEMP 96; O2SAT 98
[2016-08-18] MEDS: LISINOPRIL 10 MG TAB PO SCH (08:11)
[2016-08-18] MEDS: LACTATED RINGER'S 1000 ML INJ 1,000 ML IV SCH ×3 (08:12→20:12)
[2016-08-18] MEDS: SODIUM CHLORIDE 0.9% FLUSH 10 ML FLUSH IV FLUSH SCH ×2 (08:12→20:12)
--- NOTE | 2016-08-18 09:41 | HHI.PR ---
Subjective Subjective Notes Up in chair. Feels so much better after having had multiple BMs. Pain, nausea, discomfort gone. Objective Vitals/I&O Vital Signs Date Time Temp Pulse Resp B/P Pulse Ox O2 Delivery O2 Flow Rate FiO2 08/18/16 08:00 96.0 108 16 136/76 98 08/15/16 19:00 Room Air Cardiovascular: Other (sinus tachycardia) Lungs: Clear Abdomen: Non-distended, Non-tender, Other (Incision intyact, jermaine present, no erythema, no drainage.), BS normal Extremities: Perfused, Other (edema resolved, some residual ecchymosis.) A/P Assessment and Plan POD 7 s/p exp lap splenectomy, repair liver capsular tear for massive hemoperitoneum, one day post colonoscopy. LLQ mass, sigmoid colon and L ovary, known h/o diverticulitis/osis. Improved after return of bowel function. Slow improvement in oral intake. Planning Dc Saturday. may need walker for home use. Francisco Hinton MD Aug 18, 2016 09:41
[2016-08-18 12:00] VITALS: BP 137/77; PULSE 107; RESP 16; TEMP 97.5; O2SAT 97
[2016-08-18] MEDS: ACETAMINOPHEN 325 MG TAB PO PRN ×2 (13:17→22:27)
[2016-08-18 16:00] VITALS: BP 137/71; PULSE 101; RESP 17; TEMP 99; O2SAT 98
[2016-08-18 20:00] VITALS: BP 133/74; PULSE 108; RESP 18; TEMP 99.3; O2SAT 98
[2016-08-18] MEDS: PANTOPRAZOLE SODIUM 40 MG VIAL IV SCH (20:12)
[2016-08-19] VITALS: BP 130/72; PULSE 99; RESP 18; TEMP 98.2; O2SAT 97
[2016-08-19 08:00] VITALS: BP 147/82; PULSE 97; RESP 17; TEMP 98.5; O2SAT 97
[2016-08-19] MEDS: LISINOPRIL 10 MG TAB PO SCH (08:29)
[2016-08-19] MEDS: SODIUM CHLORIDE 0.9% FLUSH 10 ML FLUSH IV FLUSH SCH ×2 (08:29→20:41)
[2016-08-19] MEDS: LACTATED RINGER'S 1000 ML INJ 1,000 ML IV SCH ×3 (08:30→20:42)
--- NOTE | 2016-08-19 09:50 | HHI.PR ---
Subjective Subjective Notes no issues, tolerating diet, pain controlled +bms Objective Vitals/I&O Vital Signs Date Time Temp Pulse Resp B/P Pulse Ox O2 Delivery O2 Flow Rate FiO2 08/19/16 08:00 98.5 97 17 147/82 97 08/15/16 19:00 Room Air Cardiovascular: Regular Lungs: Clear Abdomen: Other (soft incision with jermaine c/d/i. ronald serous) A/P Assessment and Plan POD 8 s/p exp lap splenectomy, repair liver capsular tear for massive hemoperitoneum, one day post colonoscopy. LLQ mass, sigmoid colon and L ovary, known h/o diverticulitis/osis. PLAN D/C IVF po pain control ronald sxn oob ambulate dvt ppx likely d/c tomorrow John Bacon MD Aug 19, 2016 09:50
[2016-08-19 12:00] VITALS: BP 133/67; PULSE 88; RESP 18; TEMP 97.6; O2SAT 98
[2016-08-19 16:00] VITALS: BP 145/72; PULSE 98; RESP 16; TEMP 98.9; O2SAT 99
[2016-08-19] MEDS: ACETAMINOPHEN 325 MG TAB PO PRN (18:44)
[2016-08-19] MEDS: PANTOPRAZOLE SODIUM 40 MG VIAL IV SCH (20:41)
[2016-08-19 21:05] VITALS: BP 140/67; PULSE 102; RESP 18; TEMP 99.1; O2SAT 98
[2016-08-19 23:08] VITALS: BP 131/65; PULSE 93; RESP 16; TEMP 98.2; O2SAT 98
[2016-08-20] MEDS: LACTATED RINGER'S 1000 ML INJ 1,000 ML IV SCH (07:17)
[2016-08-20] MEDS: LISINOPRIL 10 MG TAB PO SCH (07:42)
[2016-08-20] MEDS: SODIUM CHLORIDE 0.9% FLUSH 10 ML FLUSH IV FLUSH SCH (07:52)
[2016-08-20 08:00] VITALS: BP 147/70; PULSE 96; RESP 15; TEMP 97.2; O2SAT 98
[2016-08-20] MEDS ORDERED: HAEMOPH B POLYSACCH CONJ VACCINE 0.5 ML VIAL IM ONE (08:45)
[2016-08-20] MEDS ORDERED: [UNRECOGNIZED DRUG - OTHER] SQ ONE (08:45)
[2016-08-20] MEDS ORDERED: PNEUMOCOCCAL POLYVALENT INJ 25 MCG/0.5 ML SYR SQ ONE (08:45)
--- NOTE | 2016-08-20 08:45 | HHI.DS ---
Discharge Summary Admission Date Aug 11, 2016 at 16:07 Discharge Date: Aug 20, 2016 Admitting Diagnosis Splenic Rupture; Hemoperitoneum; Hemorrhagic Shock Procedures ex lap splenectomy, repair liver capsule tear Brief History 60 year old woman s/p colonoscopy with massive hemoperitoneum. CBC/BMP: 08/17/16 0555 08/17/16 0535 PE at Discharge midline incision healing well, jermaine intact. Drain draining clear yellow serous drainage. Hospital Course Admitted emergently through the ED, Went to the OR urgently for surgery. Postop ileus and hypoproteinemia occurred, she is recovering and has had bowel movements, and wants to go home. Pt Condition on Discharge: Good Discharge Disposition: Discharge Home Discharge Instructions DIET: Follow Instructions for: As Tolerated, No Restrictions Activities you can perform: Shower Only-No Bath Activities to Avoid: Strenuous Activity Francisco Hinton MD Aug 20, 2016 08:45
== END 2016-08-20 11:11 | disposition home or self-care (01) | DRG 799 ==
LOC: NEPC 14:02 → NEDA 16:07 → N03A 20:28 → N07A 08-14 12:18
PROVIDERS: ADMIT Surgery Trauma Surgery; ATTEND Surgery Trauma Surgery
PROC: 0FQ10ZZ Repair Right Lobe Liver, Open Approach (ICD-10-PCS; 2016-08-11)
PROC: 30233K1 Transfusion of Nonautologous Frozen Plasma into Peripheral Vein, Percutaneous Approach (ICD-10-PCS; 2016-08-11)
PROC: 30233N1 Transfusion of Nonautologous Red Blood Cells into Peripheral Vein, Percutaneous Approach (ICD-10-PCS; 2016-08-11)
PROC: 30233R1 Transfusion of Nonautologous Platelets into Peripheral Vein, Percutaneous Approach (ICD-10-PCS; 2016-08-11)
PROC: 07TP0ZZ Resection of Spleen, Open Approach (ICD-10-PCS; principal; 2016-08-11 16:52)
DX: S36.039A Unspecified laceration of spleen, initial encounter (principal); K66.1 Hemoperitoneum; R57.9 Shock, unspecified; S36.113A Laceration of liver, unspecified degree, initial encounter; D78.12 Accidental puncture and laceration of the spleen during other procedure; K91.840 Postprocedural hemorrhage of a digestive system organ or structure following a digestive system procedure; D69.6 Thrombocytopenia, unspecified; K56.7 Ileus, unspecified; D62 Acute posthemorrhagic anemia; E83.51 Hypocalcemia; R19.04 Left lower quadrant abdominal swelling, mass and lump; K66.0 Peritoneal adhesions (postprocedural) (postinfection); I10 Essential (primary) hypertension; R73.9 Hyperglycemia, unspecified; F41.9 Anxiety disorder, unspecified; E77.8 Other disorders of glycoprotein metabolism; K57.30 Diverticulosis of large intestine without perforation or abscess without bleeding; Z23 Encounter for immunization
CPT/HCPCS: 36430; 71010; 74160; 74176; 76937; 80048; 80053; 82150; 82805; 83605; 83690; 83735; 84155; 84484; 85007; 85025; 85027; 85384; 85610; 85730; 86850; 86900; 86901; 86920; 86927; 87641; 88305; 90732; 90733; 93005; 93971; 94150; 96374; 96375; C1765; C9113; J0131; J0610; J0690; J1170; J1644; J2370; J2405; J3010; J7030; J7040; J7050; J7120; P9016; P9017; P9035; Q9967

== ENCOUNTER 2016-11-23 09:50 | Inpatient (IN) | payer BC ==
[~2016-11-23] VITALS: Ht 165.1 cm; Wt 53.0 kg
[~2016-11-23 09:50] MED LIST changes: -GABA300C5 PO; -LACTATED RINGER'S 1000 ML INJ 1,000 ML IV ONE; -NORMOSOL R INJ 2,000 ML IV ONE; -ONDANSETRON HCL 4 MG/2 ML VIAL IV PUSH ONE; -PHENYLEPH/NS 1000 MCG/10 ML SYR IV ONE; -PROPOFOL 200 MG/20 ML AMP IV ONE
[2016-11-23] MEDS ORDERED: ALVIMOPAN 12 MG CAPSULE - On Call PO SCH (10:30)
[2016-11-23] MEDS ORDERED: ceFAZolin 2 GM PREMIX 50 ML IV SCH (10:30)
[2016-11-23] MEDS ORDERED: METOPROLOL TARTRATE 25 MG TAB PO PRN (10:45)
[2016-11-23] MEDS ORDERED: SODIUM CHLORID 0.9% 500 ML IV PRN (10:45)
[2016-11-23] MEDS ORDERED: CHLORHEXIDINE GLUCONATE 2 % 1 PACK (2 CLOTHS) TOPICAL PRN (10:45)
[2016-11-23] MEDS ORDERED: POVIDONE IODINE 5% (ANTISEPSIS KIT) 4 APPLICATIONS EACH NARE PRN (10:45)
[2016-11-23] MEDS ORDERED: SOD PHOSPHATE/SOD BIPHOSPHATE (ADULT) ENEMA 133ML RECTAL ONE (10:45)
[2016-11-23] MEDS ORDERED: LACTATED RINGER'S 1000 ML IV PRN (10:45)
[2016-11-23] MEDS ORDERED: INSULIN HUMAN REGULAR 1,000 UNITS/10 ML VIAL SQ PRN (10:45)
[2016-11-23] MEDS: METRONIDAZOLE 500 MG/100 ML ISONTONIC SOLN IV SCH ×2 (11:15→17:30)
[2016-11-23] MEDS ORDERED: BUPIVACAINE LIPOSOME PF 1.3% 20 ML VIAL ONE (11:29)
[2016-11-23] MEDS ORDERED: FAMOTIDINE 20 MG/2 ML VIAL ONE (11:31)
[2016-11-23] MEDS ORDERED: MIDAZOLAM HCL 2 MG/2 ML VIAL ONE (11:31)
[2016-11-23] MEDS ORDERED: ACETAMINOPHEN 1000 MG/100 ML 100 ML IV ONE (11:32)
--- NOTE | 2016-11-23 14:13 | MP ---
cc: AYO HCEEMA M.D. DATE OF SURGERY: 11/23/2016 PREOPERATIVE DIAGNOSIS Sigmoid resection for diverticular disease. POSTOPERATIVE DIAGNOSIS Sigmoid resection for diverticular disease. SURGEON Ayo Cheema MD PROCEDURE Rigid sigmoidoscopy to evaluate anastomosis and distal rectum. DETAILS OF PROCEDURE The patient is in the operating room under the care of Dr. Hinton who did a sigmoid resection. He has asked me to come in to evaluate the distal rectum and the anastomosis. This is accomplished by placing a rigid sigmoidoscope up to 15 cm, gently infusing air while Dr. Hinton checks the anastomosis. There is no leak of air. The distal rectum looks fine. She does have some external hemorrhoids. The air is then removed and the rigid sigmoidoscope is removed. The patient is under the care of Dr. Hinton. Ayo Cheema MD JDB/JOSE CRUZ /1:48 PM /2:08 PM MTDOscar
[2016-11-23] MEDS ORDERED: SODIUM CHLORIDE 0.9% FLUSH 10 ML FLUSH IV FLUSH PRN (14:45)
[2016-11-23] MEDS ORDERED: MAGNESIUM HYDROXIDE SUSP 30 ML CUP PO PRN (14:45)
[2016-11-23] MEDS ORDERED: ENOXAPARIN SODIUM 30 MG/0.3 ML SYRINGE SQ SCH (14:45)
[2016-11-23] MEDS ORDERED: Post-op Orders (for Pharmacy) MISC XX ONE (14:45)
[2016-11-23] MEDS ORDERED: ACETAMINOPHEN/HYDROcodone 325 MG/5 MG TAB PO PRN (14:45)
--- NOTE | 2016-11-23 14:45 | PD.OP ---
Operative Report Date of Surgery: Nov 23, 2016 Preoperative Diagnosis: severe chronic sigmoid diverticular disease Postoperative Diagnosis: same Procedure: open sigmoid colon resection Anesthesia: general Surgeon: Francisco Hinton Jig Worker(s): Clive Ellis, MS3 Lenore Operation and Findings: severely thickened chronically inflamed sigmoid colon to pathology. EBL [address] chirinos performed rigid sigmoidoscopy, refer to his dictation separately please. Francisco Hinton MD Nov 23, 2016 14:45
[2016-11-23] MEDS: LACTATED RINGER'S 1000 ML INJ 1,000 ML IV SCH ×2 (15:00→21:13)
[2016-11-23] MEDS ORDERED: *HYDROmorphone PF 1 MG VIAL PERIprocedural Use ONLY ONE (15:01)
--- NOTE | 2016-11-23 15:04 | MP ---
cc: ANABEL GENAO M.D. DATE OF SURGERY: 11/23/2016. PREOPERATIVE DIAGNOSIS: Severe chronic sigmoid diverticular disease POSTOPERATIVE DIAGNOSES: Severe chronic sigmoid diverticular disease OPERATIVE PROCEDURE PERFORMED: Open sigmoid colon resection. SURGEON: Dr. Anabel Genao. VEHICLE BODY BUILDER SURGEON: Dr. Clive Cheema. ADDITIONAL VEHICLE BODY BUILDER: Rebecca Ellis, MS-3. Lenore. ANESTHESIA: General. INDICATIONS FOR THE PROCEDURE: This is a very pleasant 60-year-old woman whom I initially met on an emergent basis following colonoscopy where she suffered from a splenic capsular tear and hemoperitoneum requiring emergent splenectomy. She was being worked up for chronic left lower quadrant pain and a thickened sigmoid colon was palpable at the time of the emergent surgery. She recovered from the surgery and was having severe recurrent left lower quadrant pain. A CT scan just showed thickening in that area. No acute inflammatory changes. Recommendations were made for resection. INTRAOPERATIVE FINDINGS: Severe chronic inflammatory changes with obvious decrease in luminal diameter. Affected sigmoid colon resected and sent to pathology. Primary end-to-end two-layer suture anastomosis performed. ESTIMATED BLOOD LOSS: Estimated blood loss approximately 150 mL. NOTE: Dr. Clive Cheema performed a rigid sigmoidoscopy as part of the procedure, and please refer to his dictation separately for details of that event. DESCRIPTION OF THE PROCEDURE IN DETAIL: The patient was identified as Coleen Moreno and taken to the operating room and placed in the supine position. Sequential compression devices were placed on bilateral lower extremities. Following induction of adequate general endotracheal anesthesia, a Estrada catheter was placed and the patient was placed in [facility] stirrups. The abdomen was prepped and draped in usual sterile fashion with Betadine. A time-out procedure was performed. Following completion of the time-out procedure to everyone's satisfaction, the inferior aspect of her scar around the umbilicus which was slightly thickened was excised with a scalpel and continued with an inferior midline incision to the pubic symphysis. Hemostasis was controlled with electrocautery. Dissection continued posteriorly through the midline fascia and the peritoneum was entered with a hemostat. The surgeon's finger confirmed minimal omental adhesions in the superior aspect of the proposed incision and the peritoneal incision was opened the length of the skin incision. Robert wound retractor was placed within the wound and a Bookwalter retractor was used for retraction. There was a single loop of small bowel which was adherent to the sigmoid colon inflammatory changes; this was able to be mobilized with blunt dissection and finger fracture and the small bowel and the right cecum were covered with a moistened towel and held in position with a Bookwalter retractor. This allowed for isolation of the abnormal sigmoid colon. Again, blunt dissection and finger fracture allowed for it to be released from the urinary bladder, the pelvic sidewall and the uterus. Portion of the uterine wall was adherent to the inflammatory mass. Proximal to the inflammation across normal-appearing slightly dilated colon, the colon was divided with a linear cutting stapling device and the mesentery was sequentially taken down using the harmonic scalpel. Larger vessels were cross-clamped with Kassy clamps and ligated with 2-0 Vicryl ligatures. This allowed for dissection of the mesentery down to just distal to the severe inflammation. The contour stapling device was then used to staple across normal distal intraperitoneal colon. The specimen was passed off the field for pathologic evaluation. The distal end was the smaller colonic lumen. The wound was copiously irrigated with saline. Irritated areas of peritoneum and the uterine wall were controlled. Small oozes were controlled with electrocautery. Surgicel Snow was placed in the pelvis on the uterine wall for additional hemostasis. The distal colon was mobilized about 6 to 8 cm along the white line of Toldt and the proximal staple margin lay against the distal staple margin. The caliber of the bowel was such that an end-to-end sutured anastomosis appeared to be the best alternative for anastomosis for this patient. This was performed using a posterior layer of 3-0 silk interrupted sutures. The staple lines were excised and the inner anastomotic layer was of two separate 3-0 Vicryl sutures using a Amonate suture on either side. The anterior layer was then imbricated with interrupted 3-0 silk sutures. Following completion of the anastomosis, an appendices epiploica was laid over and loosely sutured to the anterior suture line. Dr. Cheema then performed his rigid sigmoidoscopy and part of the procedure was insufflation of air through the anastomosis while the anastomosis was held under saline and the proximal colon was kept closed with the surgeon's fingers. No bubbles or signs of anastomotic leak were identified. The air was decompressed from the colon through the rigid sigmoidoscope. Again, please refer to Dr. Anette's dictation for specifics of his portion of the procedure. The wound was again copiously irrigated. A piece of Seprafilm was cut in half and one piece was placed over the area of the small bowel which had been adherent to the sigmoid colon and the omentum lay over the small bowel down on top of the anastomosis. The second half of the Seprafilm lay over the top of the omentum beneath the midline incision. The midline incision was then closed with two #1 single stranded PDS sutures starting at the top and bottom and meeting in the middle. The subcutaneous layer was copiously irrigated with saline. The subcutaneous tissue was loosely approximated with interrupted 2-0 Vicryl sutures. The skin was approximated with running 4-0 Monocryl subcuticular suture. Dressing was applied with a Dipak dressing using a Mastisol on the skin and the Dipak dressing applied in a standard fashion. It was connected to suction and then its battery pack and there was no evidence of leak. The patient tolerated the procedure without apparent complication. Sponge, needle and instrument counts were correct at the end of the case. MD AMINATA Moyer/SYLVIE /2:36 PM /2:48 PM
[2016-11-23] MEDS ORDERED: DO NOT ADM ANY ANTICOAGULANT DRUGS PRN (15:15)
[2016-11-23] MEDS: ACETAMINOPHEN 1000 MG/100 ML 100 ML IV SCH ×2 (16:10→21:13)
[2016-11-23 16:30] VITALS: BP 135/78; PULSE 99; RESP 17; TEMP 97.4; O2SAT 97
[2016-11-23 17:17] VITALS: O2SAT 96
[2016-11-23] MEDS: KETOROLAC TROMETHAMINE 30 MG/ML (IVP) VIAL IV PUSH SCH (17:25)
[2016-11-23 20:00] VITALS: BP 145/72; PULSE 102; RESP 18; TEMP 98.1; O2SAT 97
[2016-11-23] MEDS: SODIUM CHLORIDE 0.9% FLUSH 10 ML FLUSH IV FLUSH SCH (21:00)
[2016-11-23] MEDS: ONDANSETRON HCL 4 MG/2 ML VIAL IV PUSH PRN (21:14)
[2016-11-23] MEDS: HYDROmorphone HCL PF 1 MG/ML VIAL IV PUSH PRN (21:14)
[2016-11-24] VITALS (9 sets, daily range): BP systolic 113–125; BP diastolic 60–76; PULSE 89–112; RESP 16–18; TEMP 96.3–98.4; O2SAT 96–98
[2016-11-24] MEDS: HYDROmorphone HCL PF 1 MG/ML VIAL IV PUSH PRN ×5 (00:18→17:45)
[2016-11-24] MEDS: METRONIDAZOLE 500 MG/100 ML ISONTONIC SOLN IV SCH ×3 (00:18→17:45)
[2016-11-24] MEDS: KETOROLAC TROMETHAMINE 30 MG/ML (IVP) VIAL IV PUSH SCH ×4 (00:19→17:45)
[2016-11-24] MEDS: ACETAMINOPHEN 1000 MG/100 ML 100 ML IV SCH ×4 (01:52→21:08)
[2016-11-24 07:14] LABS: BASOPHIL % 0.3 % (0.0-2.0); HEMO FLAGS DIFF FINAL; LYMPH % 9.5 % (9.0-44.0); LYMPHOCYTE # 1.6 TH/MM3 (1.0-4.8); MEAN CELL VOLUME 86.5 FL (80.0-100.0); MEAN CORPUSCULAR HEMOGLOBIN 28.6 PG (27.0-34.0); MONO % 8.4 % (0.0-8.0); NEUT % 81.8 % (16.0-70.0); PLATELET COUNT 489 TH/MM3 (150-450); RED BLOOD COUNT 3.58 MIL/MM3 (4.00-5.30); RED CELL DISTRIBUTION WIDTH 15.5 % (11.6-17.2); WHITE BLOOD COUNT 17.1 TH/MM3 (4.0-11.0)
[2016-11-24 07:38] LABS: BICARBONATE 25.9 MEQ/L (21.0-32.0); POTASSIUM 4.9 MEQ/L (3.5-5.1)
--- NOTE | 2016-11-24 09:05 | HHI.PR ---
Subjective Subjective Notes sitting up in bed, pain well controlled. No nausea. Slept well. Objective Vitals/I&O Vital Signs Date Time Temp Pulse Resp B/P (MAP) Pulse Ox O2 Delivery O2 Flow Rate FiO2 11/24/16 08:00 97.5 98 16 121/62 (81) 97 11/23/16 17:17 21 11/23/16 16:00 Room Air 11/23/16 15:30 2 Labs Laboratory Tests Test 11/24/16 06:05 White Blood Count 17.1 Red Blood Count 3.58 Hemoglobin 10.2 Hematocrit 31.0 Mean Corpuscular Volume 86.5 Mean Corpuscular Hemoglobin 28.6 Mean Corpuscular Hemoglobin Concent 33.0 Red Cell Distribution Width 15.5 Platelet Count 489 Mean Platelet Volume 7.7 Neutrophils (%) (Auto) 81.8 Lymphocytes (%) (Auto) 9.5 Monocytes (%) (Auto) 8.4 Eosinophils (%) (Auto) 0.0 Basophils (%) (Auto) 0.3 Neutrophils # (Auto) 14.0 Lymphocytes # (Auto) 1.6 Monocytes # (Auto) 1.4 Eosinophils # (Auto) 0.0 Basophils # (Auto) 0.0 CBC Comment DIFF FINAL Differential Comment Blood Urea Nitrogen 9 Creatinine 0.48 Random Glucose 83 Calcium Level 8.2 Sodium Level 134 Potassium Level 4.9 Chloride Level 102 Carbon Dioxide Level 25.9 Anion Gap 6 Estimat Glomerular Filtration Rate 131 Cardiovascular: Regular Lungs: Clear Abdomen: Non-distended, Non-tender, Other (CESILIA intact with minimal dried drainage.), BS normal Extremities: No edema, Perfused, SCD's on A/P Assessment and Plan POD 1 s/p open resection of severely inflamed sigmoid colon. Doing well. Full liquids. OOB, walk halls today, BENITA avendaño when patient ready. Francisco Hinton MD Nov 24, 2016 09:05
[2016-11-24] MEDS: ALPRAZolam 1 MG TAB PO PRN (10:34)
[2016-11-24] MEDS: ALVIMOPAN 12 MG CAPSULE - Post-op dosing PO SCH ×2 (10:34→21:08)
[2016-11-24] MEDS: LISINOPRIL 10 MG TAB PO SCH (10:35)
[2016-11-24] MEDS: SODIUM CHLORIDE 0.9% FLUSH 10 ML FLUSH IV FLUSH SCH ×2 (10:35→21:00)
[2016-11-24] MEDS: LACTATED RINGER'S 1000 ML INJ 1,000 ML IV SCH ×2 (10:45→20:45)
[2016-11-24] MEDS: ENOXAPARIN SODIUM 30 MG/0.3 ML SYRINGE SQ SCH (12:56)
[2016-11-24] MEDS: HYDROmorphone HCL PF 2 MG/ML VIAL IV PRN (21:23)
[2016-11-25] VITALS: BP 108/64; PULSE 104; RESP 18; TEMP 97.5; O2SAT 96
[2016-11-25] MEDS: KETOROLAC TROMETHAMINE 30 MG/ML (IVP) VIAL IV PUSH SCH ×5 (00:28→23:16)
[2016-11-25] MEDS: METRONIDAZOLE 500 MG/100 ML ISONTONIC SOLN IV SCH ×2 (00:29→09:29)
[2016-11-25] MEDS: ACETAMINOPHEN 1000 MG/100 ML 100 ML IV SCH ×4 (03:01→20:39)
[2016-11-25] MEDS: LACTATED RINGER'S 1000 ML INJ 1,000 ML IV SCH ×3 (05:37→20:40)
[2016-11-25] MEDS: ONDANSETRON HCL 4 MG/2 ML VIAL IV PUSH PRN ×2 (05:37→12:28)
[2016-11-25] MEDS: HYDROmorphone HCL PF 2 MG/ML VIAL IV PRN (05:37)
[2016-11-25 08:00] VITALS: BP 117/68; PULSE 110; RESP 15; TEMP 96; O2SAT 97
[2016-11-25] MEDS: ALVIMOPAN 12 MG CAPSULE - Post-op dosing PO SCH ×2 (08:03→20:39)
[2016-11-25] MEDS: SODIUM CHLORIDE 0.9% FLUSH 10 ML FLUSH IV FLUSH SCH ×2 (08:03→20:40)
[2016-11-25] MEDS: LISINOPRIL 10 MG TAB PO SCH (08:03)
[2016-11-25] MEDS ORDERED: INFLUENZA VIRUS VACCINE (QUADRIVALENT) 0.5 ML SYR IM ONE (10:00)
[2016-11-25 12:00] VITALS: BP 93/46; PULSE 108; RESP 15; TEMP 96.6; O2SAT 97
[2016-11-25] MEDS: ENOXAPARIN SODIUM 30 MG/0.3 ML SYRINGE SQ SCH (12:56)
[2016-11-25] MEDS: ALPRAZolam 1 MG TAB PO PRN ×2 (12:56→23:37)
[2016-11-25 16:00] VITALS: BP 107/63; PULSE 98; RESP 17; TEMP 98.4; O2SAT 98
[2016-11-25 20:00] VITALS: BP 105/52; PULSE 62; RESP 16; TEMP 97.9; O2SAT 99
[2016-11-26 01:05] VITALS: BP 117/62; PULSE 100; RESP 16; TEMP 97.9; O2SAT 100
[2016-11-26] MEDS: ACETAMINOPHEN 1000 MG/100 ML 100 ML IV SCH ×2 (04:29→09:19)
[2016-11-26] MEDS: KETOROLAC TROMETHAMINE 30 MG/ML (IVP) VIAL IV PUSH SCH (04:29)
[2016-11-26] MEDS ORDERED: HYDR-3533 PO (07:29)
--- NOTE | 2016-11-26 07:32 | HHI.DS ---
Discharge Summary Admission Date Nov 23, 2016 at 09:50 Discharge Date: Nov 26, 2016 Admitting Diagnosis chronic diverticulitis Procedures open sigmoid colon resection Brief History 60 year old with chronic LLQ abdominal pain CBC/BMP: 11/24/16 0605 11/24/16 0605 Significant Findings Laboratory Tests Test 11/24/16 06:05 White Blood Count 17.1 TH/MM3 (4.0-11.0) Red Blood Count 3.58 MIL/MM3 (4.00-5.30) Hemoglobin 10.2 GM/DL (11.6-15.3) Hematocrit 31.0 % (35.0-46.0) Platelet Count 489 TH/MM3 (150-450) Neutrophils (%) (Auto) 81.8 % (16.0-70.0) Monocytes (%) (Auto) 8.4 % (0.0-8.0) Neutrophils # (Auto) 14.0 TH/MM3 (1.8-7.7) Monocytes # (Auto) 1.4 TH/MM3 (0-0.9) Creatinine 0.48 MG/DL (0.50-1.00) Calcium Level 8.2 MG/DL (8.5-10.1) Sodium Level 134 MEQ/L (136-145) PE at Discharge CESILIA intact, looks great. Hospital Course admitted through [facility], had surgery. [place] nauseated yesterday, but gradually improved, Passed flatus, had BMS. Feels well this morning. DC home if tolerating po well. Pt Condition on Discharge: Good Discharge Disposition: Discharge Home Discharge Instructions DIET: Follow Instructions for: As Tolerated, No Restrictions Activities you can perform: Shower Only-No Bath Activities to Avoid: Strenuous Activity Francisco Hinton MD Nov 26, 2016 07:32
--- NOTE | 2016-11-26 07:34 | HHI.PR ---
Subjective Subjective Notes feels better today. Tolerating po well. Objective Vitals/I&O Vital Signs Date Time Temp Pulse Resp B/P (MAP) Pulse Ox O2 Delivery O2 Flow Rate FiO2 11/26/16 01:05 97.9 100 16 117/62 (80) 100 11/24/16 21:21 21 11/23/16 16:00 Room Air 11/23/16 15:30 2 Cardiovascular: Regular Lungs: Clear Abdomen: Non-distended, Non-tender, Other (CESILIA intact with minimal dried bloody drainage.) Extremities: No edema, Perfused A/P Assessment and Plan POD 3 s/p open resection of severely inflamed sigmoid colon. Doing well.Regular diet. DC home this afternoon if tolerates regular food well. Francisco Hinton MD Nov 26, 2016 07:34
[2016-11-26 08:00] VITALS: BP 147/62; PULSE 108; RESP 16; TEMP 97.6; O2SAT 97
[2016-11-26] MEDS: LISINOPRIL 10 MG TAB PO SCH (09:19)
[2016-11-26] MEDS: ALVIMOPAN 12 MG CAPSULE - Post-op dosing PO SCH (09:19)
[2016-11-26] MEDS: SODIUM CHLORIDE 0.9% FLUSH 10 ML FLUSH IV FLUSH SCH (09:34)
[2016-11-26 12:00] VITALS: BP 117/63; PULSE 109; RESP 17; TEMP 97.1; O2SAT 97
[2016-11-26] MEDS ORDERED: LIDOCAINE HCL 1% PF 5 ML AMPULE OTHER ONE (12:00)
[2016-11-26] MEDS ORDERED: NEOSTIGMINE 3 MG/3 ML SYR IV ONE (12:00)
[2016-11-26] MEDS ORDERED: KETOROLAC TROMETHAMINE 30 MG/ML (IVP) VIAL IV PUSH ONE (12:00)
[2016-11-26] MEDS ORDERED: GLYCOPYRROLATE 1 MG/5 ML SYRINGE IV PUSH ONE (12:00)
[2016-11-26] MEDS ORDERED: PROPOFOL 200 MG/20 ML AMP IV ONE (12:00)
[2016-11-26] MEDS ORDERED: ROCURONIUM INJ 50 MG/5 ML SYRINGE IV PUSH ONE (12:00)
[2016-11-26] MEDS ORDERED: ONDANSETRON HCL 4 MG/2 ML VIAL IV PUSH ONE (12:00)
[2016-11-26] MEDS ORDERED: DEXAMETHASONE SOD PHOS 4 MG/ML VIAL IV ONE (12:00)
[2016-11-26] MEDS ORDERED: SODIUM CHLORIDE 0.9% 20 ML VIAL IV ONE (12:00)
[2016-11-26] MEDS ORDERED: NORMOSOL R INJ 2,000 ML IV ONE (12:00)
[2016-11-26] MEDS ORDERED: PHENYLEPH/NS 1000 MCG/10 ML SYR IV ONE (12:00)
== END 2016-11-26 13:58 | disposition home or self-care (01) | DRG 330 ==
LOC: HSDI 09:50 → N07B 16:27
PROVIDERS: ADMIT Surgery Trauma Surgery; ATTEND Surgery Trauma Surgery
PROC: 0DJD8ZZ Inspection of Lower Intestinal Tract, Via Natural or Artificial Opening Endoscopic (ICD-10-PCS; 2016-11-23)
PROC: 3E0T3BZ Introduction of Anesthetic Agent into Peripheral Nerves and Plexi, Percutaneous Approach (ICD-10-PCS; 2016-11-23)
PROC: 0DTN0ZZ Resection of Sigmoid Colon, Open Approach (ICD-10-PCS; principal; 2016-11-23 11:34)
DX: K57.20 Diverticulitis of large intestine with perforation and abscess without bleeding (principal); I10 Essential (primary) hypertension; D64.9 Anemia, unspecified; K64.4 Residual hemorrhoidal skin tags; I34.0 Nonrheumatic mitral (valve) insufficiency; Z87.891 Personal history of nicotine dependence; Z23 Encounter for immunization
CPT/HCPCS: 76937; 80048; 85025; 86850; 86900; 86901; 88307; 90686; 94150; C1765; C9290; J0131; J0690; J1100; J1170; J1650; J1885; J2250; J2370; J2405; J2710; J3010; J7120; Q2038

== ENCOUNTER 2016-12-17 08:39 | Inpatient (IN) | payer BC ==
[2016-12-17] VITALS (12 sets, daily range): BP systolic 100–142; BP diastolic 64–89; PULSE 90–126; RESP 16–24; TEMP 97.8–98.5; O2SAT 97–100
[~2016-12-17] VITALS: Ht 165.1 cm; Wt 52.0 kg
[~2016-12-17 08:39] MED LIST changes: +HYDR-3533 PO
[2016-12-17] MEDS ORDERED: DULC100C PO (09:09)
[2016-12-17] MEDS ORDERED: antibiotic (09:09)
--- NOTE | 2016-12-17 09:15 | PD ---
HPI Chief Complaint: Respiratory Symptoms Time Seen by Provider: 09:15 Travel History International Travel<30 days: No Contact w/Intl Traveler<30days: No Traveled to known affect area: No History of Present Illness HPI 60-year-old female came to the emergency room with history of feeling weak, weight loss, poor appetite, lightheadedness and abdominal discomfort that is progressively worsening over past 2 weeks. Patient had a partial colectomy on November [address] Hinton for diverticulitis. Patient says that since then she has had these symptoms developing. Her sister is here with her who is giving additional history and says patient has been getting very weak and must have lost approximately 20 pounds since the surgery. Patient says that her appetite has gone down because of significant nausea and vomiting episode when she eats. She denies any fever or chills. Patient was tachycardic upon arrival. Patient says that she saw her surgeon 3 days ago when a part of the incision had opened. He had put a packing in. The packing is still there. She says she is just not been feeling good and knows that she is dehydrated. No history of syncopal episode. She also says that she is having trouble breathing. She says it almost feels like she ran a marathon and cannot catch her breath. No history of chest pain. She says she has been constipated. Her last bowel movement was 2 days ago. She tried taking a Dulcolax suppository which made her have a very small bowel movement. [facility] Past Medical History Narrative Medical List of her past medical, surgical, social and family history is reviewed from the nursing note. Anxiety: Yes Cancer: Yes Cardiovascular Problems: Yes Diabetes: No Diverticulitis: Yes (with colectomy) Endocrine: No Gastrointestinal Disorders: Yes Genitourinary: No Hepatitis: No Hiatal Hernia: No Hypertension: Yes Immune Disorder: No Musculoskeletal: No Neurologic: No Psychiatric: No Reproductive: No Respiratory: No Radiation Therapy: No Thyroid Disease: Yes (GROWTH ON THYROID ) Menopausal: Yes : 1 Para: 1 Dilation and Curettage (D&C): Yes (SEVERAL) Past Surgical History Abdominal Surgery: Yes (appendectomy, splenectomy 08/2016, colectomy 11/23/2016) AICD: No Appendectomy: Yes Body Medical Devices: NONE Cardiac Surgery: No Ear Surgery: No Endocrine Surgery: No Eye Surgery: No Genitourinary Surgery: No Gynecologic Surgery: Yes (multiple d&c's) Joint Replacement: No Oral Surgery: Yes (wisdom teeth ) Pacemaker: No Thoracic Surgery: No Other Surgery: Yes Social History Alcohol Use: Yes (2 GLASS OF WINE DAILY) Tobacco Use: No Substance Use: No Allergies-Medications (Allergen,Severity, Reaction): Coded Allergies: Sulfa (Sulfonamide Antibiotics) (Unverified Allergy, Severe, Itching, ) morphine (Unverified Allergy, Severe, 11/23/16) metronidazole (Verified Adverse Reaction, Intermediate, Nausea/Vomiting, 12/17/16) Comments list of her allergies reviewed from the nursing note. Reported Meds & Prescriptions Reported Meds & Active Scripts Active Lortab (Hydrocodone-Acetaminophen) 5-325 Mg Tab 1 Tab PO Q4H PRN Reported [antibiotic] Dulcolax Stool Softener (Docusate Sodium) 100 Mg Cap 100 Mg PO BID Lisinopril 10 Mg Tab 10 Mg PO DAILY Xanax (Alprazolam) 1 Mg Tab 1 Mg PO Q6H PRN Narrative Medication List of her home medications reviewed from the nursing note. Review of Systems Except as stated in HPI: all other systems reviewed are Neg General / Constitutional: Positive: Weight Loss Gastrointestinal: Positive: Nausea, Vomiting, Abdominal Pain, Loss of Appetite Physical Exam Narrative GENERAL: Awake, alert, moderate distress, anxious, emaciated SKIN: Focused skin assessment warm/dry. HEAD: Atraumatic. Normocephalic. EYES: Pupils equal and round. No scleral icterus. No injection or drainage. ENT: No nasal bleeding or discharge. Dry mucous membrane NECK: Trachea midline. No JVD. CARDIOVASCULAR: Regular rate and rhythm. Tachycardia. No murmur appreciated. RESPIRATORY: No accessory muscle use. Clear to auscultation. Breath sounds equal bilaterally. GASTROINTESTINAL: Abdomen soft, non-tender, nondistended. Hepatic and splenic margins not palpable. Abdominal incision appears to have some wound dehiscence in the inferior one third of the incision. There is a packing material that was taken out. There is serous sanguinous fluid drainage coming out. MUSCULOSKELETAL: No obvious deformities. No clubbing. No cyanosis. No edema. NEUROLOGICAL: Awake and alert. No obvious cranial nerve deficits. Motor grossly within normal limits. Normal speech. PSYCHIATRIC: Appropriate mood and affect; insight and judgment normal. Data Data Last Documented VS Vital Signs Date Time Temp Pulse Resp B/P (MAP) Pulse Ox O2 Delivery O2 Flow Rate FiO2 12/17/16 09:53 111 122/67 (85) 12/17/16 09:05 21 100 Room Air 12/17/16 08:42 97.8 Orders Orders Complete Blood Count With Diff (12/17/16:26) Comprehensive Metabolic Panel (12/17/16:) Lactic Acid Sepsis Protocol (12/17/16:) Lipase (12/17/16:) Urinalysis - C+S If Indicated (12/17/16:) Blood Culture (12/17/16:) Wound Culture And Gram Stain (12/17/16:) Chest, Single Ap (12/17/16:) Blood Glucose (12/17/16:) Ecg Monitoring (12/17/16:) Iv Access Insert/Monitor (12/17/16:) Oximetry (12/17/16:26) Oxygen Administration (12/17/16:26) Ondansetron Inj (Zofran Inj) (12/17/16 09:30) Ct Abd/Pel W Iv Contrast(Rout) (12/17/16 09:26) Sodium Chlor 0.9% 1000 Ml Inj (Ns 1000 M (12/17/16 09:26) Sodium Chlor 0.9% 1000 Ml Inj (Ns 1000 M (12/17/16 09:26) Magnesium (Mg) (12/17/16 09:26) Vascular Access Team Consult/P PRN (12/17/16 09:35) Vascular Poc Ultrasound (12/17/16 ) Sodium Chlor 0.9% 1000 Ml Inj (Ns 1000 M (12/17/16 11:00) Type And Screen (12/17/16 10:40) Red Blood Cells (Rbc) (12/17/16 10:40) Blood Product Administration (12/17/16 10:40) Sodium Chlor 0.9% 250 Ml Inj (Ns 250 Ml (12/17/16 10:45) Admit Order (Ed Use Only) (12/17/16 10:55) Labs Laboratory Tests Test 12/17/16:50 12/17/16 09:55 Lactic Acid Level 1.7 mmol/L White Blood Count 7.9 TH/MM3 Red Blood Count 2.37 MIL/MM3 Hemoglobin 6.5 GM/DL Hematocrit 19.9 % Mean Corpuscular Volume 83.8 FL Mean Corpuscular Hemoglobin 27.4 PG Mean Corpuscular Hemoglobin Concent 32.7 % Red Cell Distribution Width 15.5 % Platelet Count 1076 TH/MM3 Mean Platelet Volume 6.9 FL Neutrophils (%) (Auto) 59.7 % Lymphocytes (%) (Auto) 26.0 % Monocytes (%) (Auto) 11.1 % Eosinophils (%) (Auto) 2.7 % Basophils (%) (Auto) 0.5 % Neutrophils # (Auto) 4.7 TH/MM3 Lymphocytes # (Auto) 2.1 TH/MM3 Monocytes # (Auto) 0.9 TH/MM3 Eosinophils # (Auto) 0.2 TH/MM3 Basophils # (Auto) 0.0 TH/MM3 CBC Comment AUTO DIFF Differential Total Cells Counted 100 Neutrophils % (Manual) 65 % Band Neutrophils % 5 % Lymphocytes % 16 % Monocytes % 11 % Basophils % 1 % Neutrophils # (Manual) 5.7 TH/MM3 Metamyelocytes 2 % Nucleated Red Blood Cells 3 /100 WBC Differential Comment FINAL DIFF MANUAL Platelet Estimate HIGH Platelet Morphology Comment NORMAL Target Cells 1+ Blood Urea Nitrogen 11 MG/DL Creatinine 0.59 MG/DL Random Glucose 81 MG/DL Total Protein 6.7 GM/DL Albumin 2.0 GM/DL Calcium Level 8.9 MG/DL Magnesium Level 2.0 MG/DL Alkaline Phosphatase 80 U/L Aspartate Amino Transf (AST/SGOT) 20 U/L Alanine Aminotransferase (ALT/SGPT) 25 U/L Total Bilirubin 0.2 MG/DL Sodium Level 139 MEQ/L Potassium Level 3.8 MEQ/L Chloride Level 104 MEQ/L Carbon Dioxide Level 24.0 MEQ/L Anion Gap 11 MEQ/L Estimat Glomerular Filtration Rate 104 ML/MIN Prealbumin 13 MG/DL Lipase 63 U/L [facility] Medical Decision Making Medical Screen Exam Complete: Yes Emergency Medical Condition: Yes Medical Record Reviewed: Yes Differential Diagnosis Intra-abdominal infection, dehydration, electrolyte abnormality, wound infection Narrative Course 11:30 AM. Blood test results are back. Hemoglobin and hematocrit is significantly low. I've ordered for blood transfusion 2 units. Patient was given IV fluid as per seizure protocol. Chemistry results are back and within acceptable limits. I had collected wound culture from the surgical incision which has been sent. Currently patient is waiting for CAT scan of her abdomen and pelvis to be done and resulted. Meanwhile Dr. Hinton's PA came in and saw the patient and said that he would admit the patient to his service. I have gone back and given the patient and update on her test results and answered all her questions to the best of my ability. 12:39 PM the radiologist called me to let me know about the CT scan report which shows extensive amount of free air as per the radiologist. I'm trying to get hold of Dr. Hinton to let him know. Patient is getting IV antibiotics. Critical Care Narrative Aggregate critical care time was 60 minutes. Time to perform other separately billable procedures was not included in the critical care time. My time did not include minutes spent treating any other patients simultaneously or on activities that did not directly contribute to the patient's treatment. The services I provided to this patient were to treat and/or prevent clinically significant deterioration that could result in: Tachycardia, sepsis protocol, fluid resuscitation, symptomatically anemia, blood transfusion I provided critical care services requiring my management, as noted below: Chart data review, documentation time, medication orders and management, vital sign assessments/reviewing monitor data, ordering and reviewing lab tests, ordering and interpreting/reviewing x-rays and diagnostic studies, care of the patient and discussion of the patient with the admitting physicians. Procedures EKG Prior to Arrival: No Physician Communication Physician Communication PA of Dr. Hinton Diagnosis Primary Impression: Postoperative wound infection Qualified Codes: T81.4XXA - Infection following a procedure, initial encounter Additional Impressions: Symptomatic anemia Thrombocytosis Status post partial colectomy Weakness Weight loss Perforated viscus Admitting Information Admitting Physician Requests: Callum Dickens MD Dec 17, 2016 09:15
[2016-12-17] MEDS ORDERED: SODIUM CHLOR 0.9% 1000 ML INJ 800 ML IV ONE (09:26)
[2016-12-17] MEDS ORDERED: SODIUM CHLOR 0.9% 1000 ML INJ 1,000 ML IV ONE (09:26)
[2016-12-17] MEDS ORDERED: ONDANSETRON HCL 4 MG/2 ML VIAL IV PUSH ONE (09:30)
--- NOTE | 2016-12-17 10:22 | RADRPT ---
EXAM DATE/TIME: 12/17/2016 10:16 [facility] COMPARISON: CHEST SINGLE AP, August 12, 2016, 4:13. INDICATIONS : Patient states shortness of breath. MEDICAL HISTORY : Hypertension. SURGICAL HISTORY : Appendectomy. ENCOUNTER: Initial ACUITY: 1 day PAIN SCORE: 0/10 LOCATION: Bilateral chest FINDINGS: A single view of the chest demonstrates the lungs to be symmetrically aerated without evidence of mas s, infiltrate or effusion. The cardiomediastinal contours are unremarkable. Osseous structures are intact. CONCLUSION: Negative for acute process. Kieran Babb MD FACR on December 17, 2016 at 10:19 Board Certified Radiologist. This report was verified electronically.
[2016-12-17 10:32] LABS: AUTOMATED NEUTROPHIL # 4.7 TH/MM3 (1.8-7.7); BASOPHIL % 0.5 % (0.0-2.0); EOSINOPHIL # 0.2 TH/MM3 (0-0.4); EOSINOPHIL % 2.7 % (0.0-4.0); LYMPHOCYTE # 2.1 TH/MM3 (1.0-4.8); MEAN CELL VOLUME 83.8 FL (80.0-100.0); MEAN CORPUSCULAR HEMOGLOBIN 27.4 PG (27.0-34.0); MEAN CORPUSCULAR HGB CONC 32.7 % (32.0-36.0); MONO % 11.1 % (0.0-8.0); NEUT % 59.7 % (16.0-70.0); PLATELET COUNT 1076 TH/MM3 (150-450); RED BLOOD COUNT 2.37 MIL/MM3 (4.00-5.30); RED CELL DISTRIBUTION WIDTH 15.5 % (11.6-17.2); WHITE BLOOD COUNT 7.9 TH/MM3 (4.0-11.0)
[2016-12-17 10:36] LABS: HEMO FLAGS AUTO DIFF
[2016-12-17 10:40] LABS: HEMATOCRIT 19.9 % (35.0-46.0)
[2016-12-17] MEDS ORDERED: SODIUM CHLOR 0.9% 250 ML INJ 250 ML IV ONE (10:45)
[2016-12-17 10:58] LABS: ANION GAP 11 MEQ/L (5-15); AST (GOT) 20 U/L (15-37); BLOOD UREA NITROGEN 11 MG/DL (7-18); CHLORIDE 104 MEQ/L (98-107); GLOMERULAR FILTRATION RATE 104 ML/MIN (>89); POTASSIUM 3.8 MEQ/L (3.5-5.1); SODIUM (NA) 139 MEQ/L (136-145)
[2016-12-17 11:00] LABS: ALT (GPT) 25 U/L (10-53)
[2016-12-17] MEDS ORDERED: SODIUM CHLORIDE 0.9% FLUSH 10 ML FLUSH IV FLUSH PRN (11:00)
[2016-12-17 11:02] LABS: ALKALINE PHOSPHATASE 80 U/L (45-117); TOTAL BILIRUBIN ADULT 0.2 MG/DL (0.2-1.0)
[2016-12-17 11:16] LABS: BANDS 5 % (0-6); BASOPHILS 1 % (0-2); CORRECTED NUCLEATED RBC 3 /100 WBC (0-0); METAMYELOCYTES 2 % (0-1); NEUTROPHIL # MANUAL DIFF 5.7 TH/MM3 (1.8-7.7); PLATELET ESTIMATE SMEAR HIGH (NORMAL); PLATELET MORPHOLOGY NORMAL (NORMAL); POLYS (SEG NEUTROPHILS) 65 % (16-70); SCAN/DIFF FINAL DIFF MANUAL; TARGET CELLS 1+ (NORMAL); WBC DIFF SAMPLE 100
[2016-12-17] MEDS ORDERED: IOHEXOL 350 MG/ML 10 ML VIAL (for RAD DIAG) IVCONTRAST ONE (11:30)
[2016-12-17] MEDS: PANTOPRAZOLE SODIUM 40 MG VIAL IV PUSH SCH (12:35)
[2016-12-17] MEDS: SODIUM CHLOR 0.9% 1000 ML INJ 1,000 ML IV SCH (12:35)
[2016-12-17] MEDS: PIPERACIL-TAZO 3.375 GM PREMIX 50 ML IV SCH ×2 (12:36→21:46)
--- NOTE | 2016-12-17 12:37 | RADRPT ---
EXAM DATE/TIME: 12/17/2016 11:34 [facility] COMPARISON: CT ABDOMEN W CONTRAST, August 16, 2016, 20:00. INDICATIONS : Nausea, constipation and lower abdomen pain today. IV CONTRAST: 70 cc Omnipaque 350 (iohexol) IV ORAL CONTRAST: No oral contrast ingested. RADIATION DOSE: 6.64 CTDIvol (mGy) MEDICAL HISTORY : Diverticulitis. Carcinoma, basal cell. SURGICAL HISTORY : Splenectomy. Appendectomy.Colon resection. ENCOUNTER: Initial ACUITY: 1 day PAIN SCALE: 7/10 LOCATION: Bilateral lower quadrant TECHNIQUE: Volumetric scanning of the abdomen and pelvis was performed. Using automated exposure control and ad justment of the mA and/or kV according to patient size, radiation dose was kept as low as reasonably achievable to obtain optimal diagnostic quality images. DICOM format image data is available electro nically for review and comparison. FINDINGS: LOWER LUNGS: The visualized lower lungs are clear. LIVER: The liver is stable with multiple small scattered hepatic cysts. No dilated biliary ducts. The gallbl adder is unremarkable. SPLEEN: Status post splenectomy. PANCREAS: Within normal limits. KIDNEYS: Normal in size and shape. There is no mass, stone or hydronephrosis. Bilateral extrarenal pelves. ADRENAL GLANDS: Within normal limits. VASCULAR: There is no aortic aneurysm. BOWEL/MESENTERY: There is free air in the upper abdomen. There is air seen around the hepatic artery. These findings s uggest a perforation of the GI tract. Since most of the free air is in the upper abdomen, I suspect a perforation is from the upper GI tracts. No abnormal dilatation of large or small bowel is seen. The re is stool throughout the colon. No significant free fluid or loculated fluid collections are demons trated. ABDOMINAL WALL: Postsurgical changes. RETROPERITONEUM: There is no lymphadenopathy. BLADDER: No wall thickening or mass. REPRODUCTIVE: Within normal limits. INGUINAL: There is no lymphadenopathy or hernia. MUSCULOSKELETAL: Within normal limits for patient age. Findings called by telephone to the ER physician. CONCLUSION: There is free air in the abdomen. Most of the free air is in the upper abdomen with air seen around t he hepatic artery. Suspect a perforation of a viscus, most likely in the upper GI tract location. The other possibility could be the surgical anastomosis from patient's prior colon resection. Alo Noel MD on December 17, 2016 at 12:23 Board Certified Radiologist. This report was verified electronically.
[2016-12-17] MEDS ORDERED: PANTOPRAZOLE SODIUM 40 MG VIAL IV PUSH SCH (13:00)
[2016-12-17 13:05] LABS: BLOOD, URINE NEG (NEG); COMMENT (UR) CATH-CULT NOT IND; CULTURE IF INDICATED CATH CULTURE NOT IND; GLUCOSE,URINE NEG (NEG); KETONE, URINE NEG (NEG); NITRITE,URINE NEG (NEG); PH, URINE 7.5 (5.0-8.5); SQUAMOUS EPITHELIAL CELL URINE 1 /hpf (0-5); URINE COLOR LIGHT-YELLOW (YELLW/STRAW)
[2016-12-17] MEDS: ACETAMINOPHEN 1000 MG/100 ML 100 ML IV SCH ×2 (13:50→21:46)
--- NOTE | 2016-12-17 13:54 | HHI.HP ---
cc: Francisco Hinton MD [facility] Service General Surgery Primary Care Physician Kieran Garg, DO Admission Diagnosis dehydration, symptomatic anemia, postsurgical incision infection Chief Complaint: abdominal pain; dehydration History of Present Illness This is a 60 year old female who has had multiple hospitalizations in the past few months. On August 10 of this year the patient had an outpatient colonoscopy without immediate complications. That evening the patient was brought to the ED for dizziness and shortness of breath. A CT abdomen pelvis was complete which showed a splenic hemorrhage. The patient was taken to the OR by Dr. 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 The patient recovered from the surgery and went home. On November 26 the patient was brought in for an open resection for severely inflamed sigmoid colon. The patient had a noncomplicated post operative hospitalization and discharged home. The patient was seen in the office on Saturday 3th. At that time she was found to have a small infection in the inferior portion of her midline incision. The patient was given a prescription for an oral antibiotic. On Saturday the patient continued to feel tired and have persistent nausea with little appetite. On Saturday, the patient did feel better but this morning she began feeling worse with increase nausea and decreased appetite. She was brought to the ED for evaluation. The patient was found to be tachycardiac and given 2L boluses of normal saline. Routine lab work was obtained which revealed a normal white blood cell count and low hemoglobin and hematocrit. Her CMP was essentially normal. A CT abdomen/pelvis was obtained which showed free air the abdomen. Two units packed red blood cells were ordered and NPO status. An admission to the General Surgery service has been requested. Review of Systems Constitutional: COMPLAINS OF: Fatigue, Change in appetite, DENIES: Chills Endocrine: DENIES: Polydipsia, Polyuria, Polyphagia Eyes: DENIES: Diplopia Ears, nose, mouth, throat: DENIES: Hearing loss Respiratory: DENIES: Cough Cardiovascular: DENIES: Chest pain, Dyspnea on Exertion Gastrointestinal: COMPLAINS OF: Abdominal pain, Diarrhea, Nausea, Vomiting Genitourinary: DENIES: Urinary frequency Musculoskeletal: DENIES: Joint pain Integumentary: DENIES: Abnormal pigmentation Hematologic/lymphatic: DENIES: Bruising Immunologic/allergic: DENIES: Eczema Neurologic: DENIES: Abnormal gait, Headache Psychiatric: DENIES: Confusion, Mood changes, Depression Past Family Social History Past Medical History Anxiety Past Surgical History Exploratory laparotomy with splenectomy and repair liver capsular tear (August) Open resection of severely inflamed sigmoid colon (November 23, 2016) Appendectomy D&Cs Reported Medications Xanax Lisinopril Colace Lortab Allergies: Coded Allergies: Sulfa (Sulfonamide Antibiotics) (Unverified Allergy, Severe, Itching, ) morphine (Unverified Allergy, Severe, 11/23/16) metronidazole (Verified Adverse Reaction, Intermediate, Nausea/Vomiting, 12/17/16) Active Ordered Medications Current Medications Medications (Trade) Dose Ordered Sig/Gopal Route Start Time Stop Time Status Last Admin Sodium Chloride 1,000 ml @ 125 mls/hr Q8H IV 12/17/16 11:00 12/17/16 12:35 Sodium Chloride 250 ml @ 15 mls/hr ONCE ONCE IV 12/17/16 10:45 12/18/16 03:24 (NS Flush) 2 ml BID IV FLUSH 12/17/16 21:00 (NS Flush) 2 ml UNSCH PRN IV FLUSH 12/17/16 11:00 (Protonix Inj) 40 mg DAILY IV PUSH 12/17/16 11:00 12/17/16 12:35 (Zofran Inj) 4 mg Q6HR PRN IV PUSH 12/17/16 11:00 Piperacillin Sod/ Tazobactam Sod 50 ml @ 100 mls/hr Q8H IV 12/17/16 12:00 12/17/16 12:36 Acetaminophen 100 ml @ 400 mls/hr Q6H IV 12/17/16 13:00 Family History Noncontributory Social History Denies tobacco use Denies ETOH use Denies illicit drug use Lives at home with her . Physical Exam Vital Signs Vital Signs Date Time Temp Pulse Resp B/P (MAP) Pulse Ox O2 Delivery O2 Flow Rate FiO2 12/17/16 12:39 110 20 135/84 (101) 97 Room Air 12/17/16 09:53 111 122/67 (85) 12/17/16 09:05 112 21 122/67 (85) 100 Room Air 12/17/16 08:42 97.8 126 24 142/64 (90) 100 Physical Exam GENERAL: Chronically ill appears 60 year old female resting in ED stretcher in no acute distress. SKIN: Warm and dry. HEAD: Atraumatic. Normocephalic. EYES: Pupils equal and round. No scleral icterus. No injection or drainage. ENT: No nasal bleeding or discharge. Mucous membranes dry. NECK: Trachea midline. CARDIOVASCULAR: Regular rate and rhythm. RESPIRATORY: No accessory muscle use. Clear to auscultation. Breath sounds equal bilaterally. GASTROINTESTINAL: Abdomen soft, flat; non distended; minimally tender with deep palpation. Healing midline incision s/p opening and drainage of small infection in inferior portion of incision---dry gauze removed with minimal drainage; no residual drainage in opening; no erythema. MUSCULOSKELETAL: Extremities without clubbing, cyanosis, or edema. No obvious deformities. NEUROLOGICAL: Awake and alert. No obvious cranial nerve deficits. Motor grossly within normal limits. Five out of 5 muscle strength in the arms and legs. Normal speech. PSYCHIATRIC: Appropriate mood and affect; insight and judgment normal. Laboratory Laboratory Tests Test 12/17/16 09:50 12/17/16 09:55 12/17/16 12:25 Lactic Acid Level 1.7 White Blood Count 7.9 Red Blood Count 2.37 Hemoglobin 6.5 Hematocrit 19.9 Mean Corpuscular Volume 83.8 Mean Corpuscular Hemoglobin 27.4 Mean Corpuscular Hemoglobin Concent 32.7 Red Cell Distribution Width 15.5 Platelet Count 1076 Mean Platelet Volume 6.9 Neutrophils (%) (Auto) 59.7 Lymphocytes (%) (Auto) 26.0 Monocytes (%) (Auto) 11.1 Eosinophils (%) (Auto) 2.7 Basophils (%) (Auto) 0.5 Neutrophils # (Auto) 4.7 Lymphocytes # (Auto) 2.1 Monocytes # (Auto) 0.9 Eosinophils # (Auto) 0.2 Basophils # (Auto) 0.0 CBC Comment AUTO DIFF Differential Total Cells Counted 100 Neutrophils % (Manual) 65 Band Neutrophils % 5 Lymphocytes % 16 Monocytes % 11 Basophils % 1 Neutrophils # (Manual) 5.7 Metamyelocytes 2 Nucleated Red Blood Cells 3 Differential Comment FINAL DIFF MANUAL Platelet Estimate HIGH Platelet Morphology Comment NORMAL Target Cells 1+ Blood Urea Nitrogen 11 Creatinine 0.59 Random Glucose 81 Total Protein 6.7 Albumin 2.0 Calcium Level 8.9 Magnesium Level 2.0 Alkaline Phosphatase 80 Aspartate Amino Transf (AST/SGOT) 20 Alanine Aminotransferase (ALT/SGPT) 25 Total Bilirubin 0.2 Sodium Level 139 Potassium Level 3.8 Chloride Level 104 Carbon Dioxide Level 24.0 Anion Gap 11 Estimat Glomerular Filtration Rate 104 Lipase 63 Urine Color LIGHT-YELLOW Urine Turbidity CLEAR Urine pH 7.5 Urine Specific [place] 1.007 Urine Protein NEG Urine Glucose (UA) NEG Urine Ketones NEG Urine Occult Blood NEG Urine Nitrite NEG Urine Bilirubin NEG Urine Urobilinogen LESS THAN 2.0 Urine Leukocyte Esterase NEG Urine WBC 2 Urine Squamous Epithelial Cells 1 Microscopic Urinalysis Comment CATH-CULT NOT IND Date/Time Source Procedure Growth Status 12/17/16 10:00 Blood Peripheral Aerobic Blood Culture Pending Received 12/17/16 10:00 Blood Peripheral Anaerobic Blood Culture Pending Received 12/17/16 12:25 Wound Abdomen Gram Stain Pending Received 12/17/16 12:25 Wound Abdomen Wound Culture Pending Received Result Diagram: [id number]/[id number] Imaging Last 48 hours Impressions Chest X-Ray 12/17/16925 Signed Impressions: Service Date/Time: Saturday, December 17, 2016 10:16 - CONCLUSION: Negative for acute process. Kieran Babb MD FACR Abdomen/Pelvis CT 12/17/16925 Signed Impressions: Service Date/Time: Saturday, December 17, 2016 11:34 - CONCLUSION: There is free air in the abdomen. Most of the free air is in the upper abdomen with air seen around the hepatic artery. Suspect a perforation of a viscus, most likely in the upper GI tract location. The other possibility could be the surgical anastomosis from patient's prior colon resection. Alo Noel MD Caprini VTE Risk Assessment Caprini VTE Risk Assessment: Mod/High Risk (score >= 2) VTE Pharm Contraindication: Hmg 6.5 today; will re-assess after full workup complete and PRBCs given Caprini Risk Assessment Model Point Value = 1 Point Value = 2 Point Value = 3 Point Value = 5 Age 41-60 Minor surgery BMI > 25 kg/m2 Swollen legs Varicose veins or History of unexplained or recurrent spontaneous Oral contraceptives or hormone replacement Sepsis (< 1 month) Serious lung disease, including pneumonia (< 1 month) Abnormal pulmonary function Acute myocardial infarction Congestive heart failure (< 1 month) History of inflammatory bowel disease Medical patient at bed rest Age 61-74 Arthroscopic surgery Major open surgery (> 45 min) Laparoscopic surgery (> 45 min) Malignancy Confined to bed (> 72 hours) Immobilizing plaster cast Central venous access Age >= 75 History of VTE Family history of VTE Factor V Leiden Prothrombin [id number] Lupus anticoagulant Anticardiolipin antibodies Elevated serum homocysteine Heparin-induced thrombocytopenia Other congenital or acquired thrombophilia Stroke (< 1 month) Elective arthroplasty Hip, pelvis, or leg fracture Acute spinal cord injury (< 1 month) Prophylaxis Regimen Total Risk Factor Score Risk Level Prophylaxis Regimen 0-1 Low Early ambulation 2 Moderate Order ONE of the following: *Sequential Compression Device (SCD) *Heparin 5000 units SQ BID 3-4 Higher Order ONE of the following medications: *Heparin 5000 units SQ TID *Enoxaparin/Lovenox 40 mg SQ daily (WT < 150 kg, CrCl > 30 mL/min) *Enoxaparin/Lovenox 30 mg SQ daily (WT < 150 kg, CrCl > 10-29 mL/min) *Enoxaparin/Lovenox 30 mg SQ BID (WT < 150 kg, CrCl > 30 mL/min) AND/OR *Sequential Compression Device (SCD) 5 or more Highest Order ONE of the following medications: *Heparin 5000 units SQ TID (Preferred with Epidurals) *Enoxaparin/Lovenox 40 mg SQ daily (WT < 150 kg, CrCl > 30 mL/min) *Enoxaparin/Lovenox 30 mg SQ daily (WT < 150 kg, CrCl > 10-29 mL/min) *Enoxaparin/Lovenox 30 mg SQ BID (WT < 150 kg, CrCl > 30 mL/min) AND *Sequential Compression Device (SCD) Assessment and Plan Assessment and Plan 60 year old female s/p open resection of sigmoid colon; with dehydration; little by mouth intake -CT abd/pelvis today --- intraperitoneal air; question of perforated viscous -Labs reveal low hmg--- will transfuse 2 unites PRBCs today -Repeat labs in AM -NS bolus x2 -IVF -Pain control -Zofran PRN -IV antibiotics ---Zosyn + Diflucan -We will continue to monitor this patient closely Discussed Condition With Dr. Jamaal Boykin Mrs. Moreno + and sister in law at bedside Michelle Lane Dec 17, 2016 13:53 Francisco Hinton MD Dec 18, 2016 13:16
[2016-12-17] MEDS: FLUCONAZOLE 200 MG PREMIX BAG 100 ML IV SCH (15:00)
--- NOTE | 2016-12-17 16:12 | HHI.PR ---
Subjective Subjective Notes The patient was evaluated in the Ed after an H and P had been performed by my VEHICLE DETAILER, Michelle Lane. The pt is awake and alert, accompanied by her sister in law, Yvette Wu. She has a vague lower abdominal pain. She was doing better over the weekend, having tolerated more oral intake, was up walking around, feeling like she was turning the corner. This morning she awoke with chills and weakness, and feeling like she couldn't move. She called Yvette, who called me, and I advised she come to the ED. She had been taking "too much" ibuprofen. She had not been eating enough. She feels like she could move her bowels, but she has not had a BM. She denies an acute event where she felt or developed a severe pain. Objective Vitals/I&O Vital Signs Date Time Temp Pulse Resp B/P (MAP) Pulse Ox O2 Delivery O2 Flow Rate FiO2 12/17/16 15:03 98.4 101 16 126/77 97 12/17/16 12:39 Room Air Labs Laboratory Tests Test 12/17/16 09:50 12/17/16 09:55 12/17/16 12:25 Lactic Acid Level 1.7 White Blood Count 7.9 Red Blood Count 2.37 Hemoglobin 6.5 Hematocrit 19.9 Mean Corpuscular Volume 83.8 Mean Corpuscular Hemoglobin 27.4 Mean Corpuscular Hemoglobin Concent 32.7 Red Cell Distribution Width 15.5 Platelet Count 1076 Mean Platelet Volume 6.9 Neutrophils (%) (Auto) 59.7 Lymphocytes (%) (Auto) 26.0 Monocytes (%) (Auto) 11.1 Eosinophils (%) (Auto) 2.7 Basophils (%) (Auto) 0.5 Neutrophils # (Auto) 4.7 Lymphocytes # (Auto) 2.1 Monocytes # (Auto) 0.9 Eosinophils # (Auto) 0.2 Basophils # (Auto) 0.0 CBC Comment AUTO DIFF Differential Total Cells Counted 100 Neutrophils % (Manual) 65 Band Neutrophils % 5 Lymphocytes % 16 Monocytes % 11 Basophils % 1 Neutrophils # (Manual) 5.7 Metamyelocytes 2 Nucleated Red Blood Cells 3 Differential Comment FINAL DIFF MANUAL Platelet Estimate HIGH Platelet Morphology Comment NORMAL Target Cells 1+ Blood Urea Nitrogen 11 Creatinine 0.59 Random Glucose 81 Total Protein 6.7 Albumin 2.0 Calcium Level 8.9 Magnesium Level 2.0 Alkaline Phosphatase 80 Aspartate Amino Transf (AST/SGOT) 20 Alanine Aminotransferase (ALT/SGPT) 25 Total Bilirubin 0.2 Sodium Level 139 Potassium Level 3.8 Chloride Level 104 Carbon Dioxide Level 24.0 Anion Gap 11 Estimat Glomerular Filtration Rate 104 Prealbumin 13 Lipase 63 Urine Color LIGHT-YELLOW Urine Turbidity CLEAR Urine pH 7.5 Urine Specific [place] 1.007 Urine Protein NEG Urine Glucose (UA) NEG Urine Ketones NEG Urine Occult Blood NEG Urine Nitrite NEG Urine Bilirubin NEG Urine Urobilinogen LESS THAN 2.0 Urine Leukocyte Esterase NEG Urine WBC 2 Urine Squamous Epithelial Cells 1 Microscopic Urinalysis Comment CATH-CULT NOT IND Date/Time Source Procedure Growth Status 12/17/16 10:00 Blood Peripheral Aerobic Blood Culture Pending Received 12/17/16 10:00 Blood Peripheral Anaerobic Blood Culture Pending Received 12/17/16 12:25 Wound Abdomen Gram Stain Pending Received 12/17/16 12:25 Wound Abdomen Wound Culture Pending Received Cardiovascular: Regular Lungs: Clear Abdomen: Non-distended, Non-tender, Other (Incision well approximated. A tiny skin separation at the inferior aspect of her incision where a small wound infection was drained on Saturday in the office is totally clean and there is no erythema or residual signs of infection.), BS normal Extremities: No edema, Perfused A/P Assessment and Plan 3 weeks post open sigmoid resection for severe diverticular disease, several months post emergent splenectomy for splenic capsular tear during colonoscopy, Now with free air likely from duodenal ulcer- stress, ibuprofen, poor nutrition - less likely from colonic anastomosis. Patient is not septic, does not have peritonitis. She is anemic likely related to malnutrition.She has anxiety disorder. I discussed with the patient and her sister in law, I have recommended against operative intervention, will treat with PPIs, Zosyn, diflucan, pRBC transfusion , and nutritional supplement. At some point she will likely benefit from contrast study of duodenum and colonic anastomosis, will evaluate based on how she recovers with treatment. Francisco Hinton MD Dec 17, 2016 16:12
[2016-12-17] MEDS: SODIUM CHLORIDE 0.9% FLUSH 10 ML FLUSH IV FLUSH SCH (21:47)
[2016-12-18] VITALS (8 sets, daily range): BP systolic 122–154; BP diastolic 61–75; PULSE 83–95; RESP 18–20; TEMP 97.7–98.8; O2SAT 97–99
[2016-12-18] MEDS: ACETAMINOPHEN 1000 MG/100 ML 100 ML IV SCH ×2 (02:59→06:37)
[2016-12-18] MEDS: PIPERACIL-TAZO 3.375 GM PREMIX 50 ML IV SCH ×3 (04:16→20:28)
[2016-12-18] MEDS ORDERED: BISACODYL 10 MG SUPP RECTAL ONE (08:00)
[2016-12-18] MEDS ORDERED: SOD PHOSPHATE/SOD BIPHOSPHATE (ADULT) ENEMA 133ML RECTAL ONE (08:00)
--- NOTE | 2016-12-18 08:03 | HHI.PR ---
Subjective Subjective Notes feels terrible, sick, nauseated. Does not feel like she will be able to swallow , drink any liquids. Objective Vitals/I&O Vital Signs Date Time Temp Pulse Resp B/P (MAP) Pulse Ox O2 Delivery O2 Flow Rate FiO2 12/18/16 06:50 98.1 87 20 125/75 (92) 97 12/17/16 12:39 Room Air Labs Laboratory Tests Test 12/17/16 09:50 12/17/16 09:55 12/17/16 12:25 Lactic Acid Level 1.7 White Blood Count 7.9 Red Blood Count 2.37 Hemoglobin 6.5 Hematocrit 19.9 Mean Corpuscular Volume 83.8 Mean Corpuscular Hemoglobin 27.4 Mean Corpuscular Hemoglobin Concent 32.7 Red Cell Distribution Width 15.5 Platelet Count 1076 Mean Platelet Volume 6.9 Neutrophils (%) (Auto) 59.7 Lymphocytes (%) (Auto) 26.0 Monocytes (%) (Auto) 11.1 Eosinophils (%) (Auto) 2.7 Basophils (%) (Auto) 0.5 Neutrophils # (Auto) 4.7 Lymphocytes # (Auto) 2.1 Monocytes # (Auto) 0.9 Eosinophils # (Auto) 0.2 Basophils # (Auto) 0.0 CBC Comment AUTO DIFF Differential Total Cells Counted 100 Neutrophils % (Manual) 65 Band Neutrophils % 5 Lymphocytes % 16 Monocytes % 11 Basophils % 1 Neutrophils # (Manual) 5.7 Metamyelocytes 2 Nucleated Red Blood Cells 3 Differential Comment FINAL DIFF MANUAL Platelet Estimate HIGH Platelet Morphology Comment NORMAL Target Cells 1+ Blood Urea Nitrogen 11 Creatinine 0.59 Random Glucose 81 Total Protein 6.7 Albumin 2.0 Calcium Level 8.9 Magnesium Level 2.0 Alkaline Phosphatase 80 Aspartate Amino Transf (AST/SGOT) 20 Alanine Aminotransferase (ALT/SGPT) 25 Total Bilirubin 0.2 Sodium Level 139 Potassium Level 3.8 Chloride Level 104 Carbon Dioxide Level 24.0 Anion Gap 11 Estimat Glomerular Filtration Rate 104 Prealbumin 13 Lipase 63 Urine Color LIGHT-YELLOW Urine Turbidity CLEAR Urine pH 7.5 Urine Specific [place] 1.007 Urine Protein NEG Urine Glucose (UA) NEG Urine Ketones NEG Urine Occult Blood NEG Urine Nitrite NEG Urine Bilirubin NEG Urine Urobilinogen LESS THAN 2.0 Urine Leukocyte Esterase NEG Urine WBC 2 Urine Squamous Epithelial Cells 1 Microscopic Urinalysis Comment CATH-CULT NOT IND Date/Time Source Procedure Growth Status 12/17/16 10:00 Blood Peripheral Aerobic Blood Culture Pending Received 12/17/16 10:00 Blood Peripheral Anaerobic Blood Culture Pending Received 12/17/16 12:25 Wound Abdomen Gram Stain - Final Resulted 12/17/16 12:25 Wound Abdomen Wound Culture Pending Resulted Cardiovascular: Regular Lungs: Clear Abdomen: Non-distended, Non-tender, Other (Incision looks good, no erythema), BS normal Extremities: No edema, Perfused A/P Assessment and Plan 3 weeks post open sigmoid resection for severe diverticular disease, several months post emergent splenectomy for splenic capsular tear during colonoscopy, Now with free air likely from duodenal ulcer- stress, ibuprofen, poor nutrition - less likely from colonic anastomosis. Patient is not septic, does not have peritonitis. She is anemic likely related to malnutrition.She has anxiety disorder. Plan scopolamine patch for persistent nausea, dulcolax, fleets to get bowels moving. Ativan for anxiety, DC ofirmev due to feeling of it worsening nausea. Get up to bathroom for voids, BMs. Will follow up labs. Francisco Hinton MD Dec 18, 2016 08:03
[2016-12-18] MEDS: SODIUM CHLORIDE 0.9% FLUSH 10 ML FLUSH IV FLUSH SCH ×2 (08:43→21:00)
[2016-12-18] MEDS: PANTOPRAZOLE SODIUM 40 MG VIAL IV PUSH SCH (08:43)
[2016-12-18 08:45] LABS: AUTOMATED NEUTROPHIL # 7.4 TH/MM3 (1.8-7.7); BASOPHIL % 0.3 % (0.0-2.0); EOSINOPHIL # 0.4 TH/MM3 (0-0.4); EOSINOPHIL % 3.6 % (0.0-4.0); HEMATOCRIT 31.9 % (35.0-46.0); HEMO FLAGS DIFF FINAL; LYMPH % 17.9 % (9.0-44.0); LYMPHOCYTE # 1.9 TH/MM3 (1.0-4.8); MEAN CELL VOLUME 86.3 FL (80.0-100.0); MEAN CORPUSCULAR HEMOGLOBIN 28.6 PG (27.0-34.0); MEAN CORPUSCULAR HGB CONC 33.1 % (32.0-36.0); MONO % 9.4 % (0.0-8.0); NEUT % 68.8 % (16.0-70.0); PLATELET COUNT 841 TH/MM3 (150-450); WHITE BLOOD COUNT 10.7 TH/MM3 (4.0-11.0)
[2016-12-18] MEDS: SCOPOLAMINE 1.5 MG PATCH T-DERMAL SCH (08:55)
[2016-12-18 09:31] LABS: POTASSIUM 3.5 MEQ/L (3.5-5.1)
[2016-12-18] MEDS ORDERED: INFLUENZA VIRUS VACCINE (QUADRIVALENT) 0.5 ML SYR IM ONE (10:00)
[2016-12-18] MEDS: ONDANSETRON HCL 4 MG/2 ML VIAL IV PUSH PRN (12:55)
[2016-12-18] MEDS: FLUCONAZOLE 200 MG PREMIX BAG 100 ML IV SCH (15:03)
[2016-12-18] MEDS: LORazepam 2 MG/ML VIAL IV PUSH PRN (22:55)
[2016-12-19 00:01] VITALS: BP 129/65; PULSE 86; RESP 17; TEMP 98.1; O2SAT 99
[2016-12-19] MEDS: PIPERACIL-TAZO 3.375 GM PREMIX 50 ML IV SCH ×3 (03:23→21:37)
[2016-12-19] MEDS: SODIUM CHLOR 0.9% 1000 ML INJ 1,000 ML IV SCH ×3 (03:23→21:41)
[2016-12-19 04:27] VITALS: BP 132/68; PULSE 87; RESP 18; TEMP 97.9; O2SAT 97
[2016-12-19 08:02] VITALS: BP 138/65; PULSE 90; RESP 18; TEMP 98.2; O2SAT 98
[2016-12-19] MEDS: PANTOPRAZOLE SODIUM 40 MG VIAL IV PUSH SCH (08:03)
[2016-12-19] MEDS: SODIUM CHLORIDE 0.9% FLUSH 10 ML FLUSH IV FLUSH SCH ×2 (08:04→21:40)
[2016-12-19] MEDS: LORazepam 2 MG/ML VIAL IV PUSH PRN ×2 (08:09→22:44)
--- NOTE | 2016-12-19 08:32 | HHI.PR ---
Subjective Subjective Notes Feels much better this morning. Had multiple BMs and thinks that made the difference. Started draining again through inferior aspect of incision. Objective Vitals/I&O Vital Signs Date Time Temp Pulse Resp B/P (MAP) Pulse Ox O2 Delivery O2 Flow Rate FiO2 12/19/16 08:02 98.2 90 18 138/65 (89) 98 12/17/16 12:39 Room Air Labs Date/Time Source Procedure Growth Status 12/17/16 10:00 Blood Peripheral Aerobic Blood Culture - Preliminary NO GROWTH IN 1 DAY Resulted 12/17/16 10:00 Blood Peripheral Anaerobic Blood Culture - Preliminary NO GROWTH IN 1 DAY Resulted 12/17/16 12:25 Wound Abdomen Gram Stain - Final Resulted 12/17/16 12:25 Wound Culture - Preliminary Gram Negative Vito Resulted Radiology Last 48 hours Impressions Chest X-Ray 12/17/16925 Signed Impressions: Service Date/Time: Saturday, December 17, 2016 10:16 - CONCLUSION: Negative for acute process. Kieran Babb MD FACR Abdomen/Pelvis CT 12/17/16925 Signed Impressions: Service Date/Time: Saturday, December 17, 2016 11:34 - CONCLUSION: There is free air in the abdomen. Most of the free air is in the upper abdomen with air seen around the hepatic artery. Suspect a perforation of a viscus, most likely in the upper GI tract location. The other possibility could be the surgical anastomosis from patient's prior colon resection. Alo Noel MD Cardiovascular: Regular Lungs: Clear Abdomen: Non-distended, Non-tender, Other (1 cm opening with grennish brown drainage from incision, no odor. Explored with CTA, no obvious fascial defect, cleansed with saline and dressed with 1/2 inch iodoform guaze wick, 4x4 and bordered guaze.) Extremities: No edema, Perfused A/P Assessment and Plan 3 weeks post open sigmoid resection for severe diverticular disease, several months post emergent splenectomy for splenic capsular tear during colonoscopy, Now with free air likely from duodenal ulcer- stress, ibuprofen, poor nutrition - less likely from colonic anastomosis. Patient is not septic, does not have peritonitis. She is anemic likely related to malnutrition.She has anxiety disorder. Feels better. Drainage from wound worrisome for bowel leak, but no odor, no obvious fascial defect. Dressing changes, showers ordered. She is ready to start oral intake, I encouraged her to do so slowly. She also needs to walk halls with help. I discussed contrasted studies upper and lower over the next few days to further evaluate etiology of free air, duodenal ulcer vs colonic anastomotic leak. She remains very stable. Plan improve nutrition to facilitate healing. Francisco Hinton MD Dec 19, 2016 08:32
[2016-12-19 11:51] VITALS: BP 138/63; PULSE 84; RESP 18; TEMP 97.9; O2SAT 100
[2016-12-19] MEDS: FLUCONAZOLE 200 MG PREMIX BAG 100 ML IV SCH (15:31)
[2016-12-19 15:37] VITALS: BP 143/78; PULSE 93; RESP 18; TEMP 98.2; O2SAT 99
[2016-12-19 20:00] VITALS: BP 141/77; PULSE 84; RESP 18; TEMP 98.3; O2SAT 99
[2016-12-20 00:31] VITALS: BP 135/71; PULSE 76; RESP 18; TEMP 98.2; O2SAT 97
[2016-12-20] MEDS: SODIUM CHLOR 0.9% 1000 ML INJ 1,000 ML IV SCH ×3 (03:00→20:59)
[2016-12-20 04:00] VITALS: BP 138/77; PULSE 82; RESP 18; TEMP 98.1; O2SAT 96
[2016-12-20] MEDS: PIPERACIL-TAZO 3.375 GM PREMIX 50 ML IV SCH ×3 (04:13→20:59)
[2016-12-20 08:00] VITALS: BP 137/74; PULSE 81; RESP 18; TEMP 98; O2SAT 98
[2016-12-20 08:25] LABS: BICARBONATE 20.4 MEQ/L (21.0-32.0); POTASSIUM 3.9 MEQ/L (3.5-5.1)
[2016-12-20] MEDS: PANTOPRAZOLE SODIUM 40 MG VIAL IV PUSH SCH (09:07)
[2016-12-20] MEDS: SODIUM CHLORIDE 0.9% FLUSH 10 ML FLUSH IV FLUSH SCH ×2 (09:07→20:59)
[2016-12-20] MEDS: LORazepam 2 MG/ML VIAL IV PUSH PRN ×2 (09:07→22:16)
--- NOTE | 2016-12-20 09:54 | HHI.PR ---
Subjective Subjective Notes eating blueberry muffin. Has been able to tolerate oral intake better. Took 3 walks in the halls yesterday. Still voiding, bowels are working. Drainage from wound in lower midline incision continues. Objective Vitals/I&O Vital Signs Date Time Temp Pulse Resp B/P (MAP) Pulse Ox O2 Delivery O2 Flow Rate FiO2 12/20/16 08:00 98.0 81 18 137/74 (95) 98 12/17/16 12:39 Room Air Labs Laboratory Tests Test 12/20/16 07:36 Blood Urea Nitrogen 5 Creatinine 0.35 Random Glucose 71 Calcium Level 7.9 Magnesium Level 2.0 Sodium Level 138 Potassium Level 3.9 Chloride Level 107 Carbon Dioxide Level 20.4 Anion Gap 11 Estimat Glomerular Filtration Rate 189 Date/Time Source Procedure Growth Status 12/17/16 10:00 Blood Peripheral Aerobic Blood Culture - Preliminary NO GROWTH IN 2 DAYS Resulted 12/17/16 10:00 Blood Peripheral Anaerobic Blood Culture - Preliminary NO GROWTH IN 2 DAYS Resulted 12/17/16 12:25 Wound Abdomen Gram Stain - Final Resulted 12/17/16 12:25 Wound Culture - Preliminary Klebsiella Pneumoniae Pseudomonas Species Gram Negative Vito Resulted Radiology Last 48 hours Impressions Chest X-Ray 12/17/16925 Signed Impressions: Service Date/Time: Saturday, December 17, 2016 10:16 - CONCLUSION: Negative for acute process. Kieran Babb MD FACR Abdomen/Pelvis CT 12/17/16925 Signed Impressions: Service Date/Time: Saturday, December 17, 2016 11:34 - CONCLUSION: There is free air in the abdomen. Most of the free air is in the upper abdomen with air seen around the hepatic artery. Suspect a perforation of a viscus, most likely in the upper GI tract location. The other possibility could be the surgical anastomosis from patient's prior colon resection. Alo Noel MD Narrative Exam Will change dressing later tody, family at bedside at present. Looks well, has good color, comfortable. A/P Assessment and Plan 3 weeks post open sigmoid resection for severe diverticular disease, several months post emergent splenectomy for splenic capsular tear during colonoscopy, Now with free air likely from duodenal ulcer- stress, ibuprofen, poor nutrition - less likely from colonic anastomosis. Patient is not septic, does not have peritonitis. She is anemic likely related to malnutrition.She has anxiety disorder. Feels better. Drainage from wound worrisome for bowel leak, but no odor, no obvious fascial defect. Continue to improve nutrition. Will change dressing later today. Will wait on contrast study as she is improving. Nausea much more mild and infrequent. Francisco Hinton MD Dec 20, 2016 09:54
[2016-12-20 11:33] VITALS: BP 132/72; PULSE 90; RESP 18; TEMP 97.9; O2SAT 96
[2016-12-20 11:33] LABS: BASOPHIL # 0.1 TH/MM3 (0-0.2); BASOPHIL % 1.4 % (0.0-2.0); EOSINOPHIL # 0.2 TH/MM3 (0-0.4); EOSINOPHIL % 2.9 % (0.0-4.0); HEMO FLAGS DIFF FINAL; LYMPH % 22.3 % (9.0-44.0); LYMPHOCYTE # 1.8 TH/MM3 (1.0-4.8); MEAN CELL VOLUME 89.1 FL (80.0-100.0); MEAN CORPUSCULAR HEMOGLOBIN 29.6 PG (27.0-34.0); MEAN CORPUSCULAR HGB CONC 33.2 % (32.0-36.0); MONO % 10.9 % (0.0-8.0); NEUT % 62.5 % (16.0-70.0); PLATELET COUNT 752 TH/MM3 (150-450); RED BLOOD COUNT 3.93 MIL/MM3 (4.00-5.30); RED CELL DISTRIBUTION WIDTH 19.2 % (11.6-17.2)
[2016-12-20] MEDS: FLUCONAZOLE 200 MG PREMIX BAG 100 ML IV SCH (15:28)
[2016-12-20 16:00] VITALS: BP 131/70; PULSE 86; RESP 18; TEMP 98.3; O2SAT 96
[2016-12-20 20:00] VITALS: BP 137/70; PULSE 91; RESP 18; TEMP 98.4; O2SAT 98
[2016-12-21] VITALS: BP 130/70; PULSE 83; RESP 19; TEMP 98.1; O2SAT 98
[2016-12-21] MEDS: SODIUM CHLOR 0.9% 1000 ML INJ 1,000 ML IV SCH ×2 (03:00→12:13)
[2016-12-21 04:56] VITALS: BP 137/81; PULSE 88; RESP 18; TEMP 98.2; O2SAT 97
[2016-12-21] MEDS: PIPERACIL-TAZO 3.375 GM PREMIX 50 ML IV SCH ×3 (05:04→21:12)
[2016-12-21 07:42] VITALS: BP 133/69; PULSE 81; RESP 18; TEMP 98; O2SAT 98
--- NOTE | 2016-12-21 07:50 | HHI.PR ---
Subjective Subjective Notes awake, alert. rested well. Tolerating po intake, nausea even less. C/O crampy, lateral hip pain when on toilet, goes away when she gets back to bed. Not bad, does not require pain med. Objective Vitals/I&O Vital Signs Date Time Temp Pulse Resp B/P (MAP) Pulse Ox O2 Delivery O2 Flow Rate FiO2 12/21/16 07:42 98.0 81 18 133/69 (90) 98 12/17/16 12:39 Room Air Labs Laboratory Tests Test 12/20/16 10:35 White Blood Count 8.0 Red Blood Count 3.93 Hemoglobin 11.6 Hematocrit 35.0 Mean Corpuscular Volume 89.1 Mean Corpuscular Hemoglobin 29.6 Mean Corpuscular Hemoglobin Concent 33.2 Red Cell Distribution Width 19.2 Platelet Count 752 Mean Platelet Volume 7.2 Neutrophils (%) (Auto) 62.5 Lymphocytes (%) (Auto) 22.3 Monocytes (%) (Auto) 10.9 Eosinophils (%) (Auto) 2.9 Basophils (%) (Auto) 1.4 Neutrophils # (Auto) 5.0 Lymphocytes # (Auto) 1.8 Monocytes # (Auto) 0.9 Eosinophils # (Auto) 0.2 Basophils # (Auto) 0.1 CBC Comment DIFF FINAL Differential Comment Date/Time Source Procedure Growth Status 12/17/16 10:00 Blood Peripheral Aerobic Blood Culture - Preliminary NO GROWTH IN 3 DAYS Resulted 12/17/16 10:00 Blood Peripheral Anaerobic Blood Culture - Preliminary NO GROWTH IN 3 DAYS Resulted 12/17/16 12:25 Wound Abdomen Gram Stain - Final Complete 12/17/16 12:25 Wound Culture - Final Klebsiella Pneumoniae Pseudomonas Aeruginosa Escherichia Coli Complete Radiology Last 48 hours Impressions Chest X-Ray 12/17/16925 Signed Impressions: Service Date/Time: Saturday, December 17, 2016 10:16 - CONCLUSION: Negative for acute process. Kieran Babb MD FACR Abdomen/Pelvis CT 12/17/16925 Signed Impressions: Service Date/Time: Saturday, December 17, 2016 11:34 - CONCLUSION: There is free air in the abdomen. Most of the free air is in the upper abdomen with air seen around the hepatic artery. Suspect a perforation of a viscus, most likely in the upper GI tract location. The other possibility could be the surgical anastomosis from patient's prior colon resection. Alo Noel MD Cardiovascular: Regular Lungs: Clear Abdomen: Non-distended, Non-tender, Other (wound dressing changed. Minimal serous drainage, wick changed, dry dressing placed. ) Extremities: No edema, Perfused Narrative Exam . A/P Assessment and Plan 3 weeks post open sigmoid resection for severe diverticular disease, several months post emergent splenectomy for splenic capsular tear during colonoscopy, Now with free air likely from duodenal ulcer- stress, ibuprofen, poor nutrition - less likely from colonic anastomosis. Patient is not septic, does not have peritonitis. She is anemic likely related to malnutrition.She has anxiety disorder. Feels better. Drainage from wound worrisome for bowel leak, but no odor, no obvious fascial defect. Continue to improve nutrition. Dressing changed. Will decrease IVFs to 75 an hour. Pt requests we keep meds IV as she does poorly with pills. Consider oral/ rectal contrasted CT next week to evaluate for etiology of free air. Francisco Hinton MD Dec 21, 2016 07:50
[2016-12-21] MEDS: SODIUM CHLORIDE 0.9% FLUSH 10 ML FLUSH IV FLUSH SCH ×2 (08:42→21:00)
[2016-12-21] MEDS: SCOPOLAMINE 1.5 MG PATCH T-DERMAL SCH (08:44)
[2016-12-21] MEDS: PANTOPRAZOLE SODIUM 40 MG VIAL IV PUSH SCH (08:44)
[2016-12-21] MEDS: REMOVE OLD SCOPOLAMINE PATCH T-DERMAL SCH (08:44)
[2016-12-21] MEDS: LORazepam 2 MG/ML VIAL IV PUSH PRN (08:56)
[2016-12-21 12:30] VITALS: BP 126/62; PULSE 97; RESP 18; TEMP 97.3; O2SAT 97
[2016-12-21] MEDS: FLUCONAZOLE 200 MG PREMIX BAG 100 ML IV SCH (14:14)
[2016-12-21 20:00] VITALS: BP 137/68; PULSE 93; RESP 18; TEMP 98.5; O2SAT 98
[2016-12-22] MEDS: SODIUM CHLOR 0.9% 1000 ML INJ 1,000 ML IV SCH ×2 (02:28→15:45)
[2016-12-22 04:00] VITALS: BP 140/64; PULSE 79; RESP 18; TEMP 98.3; O2SAT 97
[2016-12-22] MEDS: PIPERACIL-TAZO 3.375 GM PREMIX 50 ML IV SCH ×3 (05:04→21:09)
[2016-12-22] MEDS: SODIUM CHLORIDE 0.9% FLUSH 10 ML FLUSH IV FLUSH SCH ×2 (08:18→21:00)
[2016-12-22] MEDS: PANTOPRAZOLE SODIUM 40 MG VIAL IV PUSH SCH (08:18)
[2016-12-22 08:20] VITALS: BP 135/71; PULSE 82; RESP 17; TEMP 98.1; O2SAT 98
[2016-12-22] MEDS: LORazepam 2 MG/ML VIAL IV PUSH PRN ×2 (08:22→21:10)
--- NOTE | 2016-12-22 10:27 | HHI.PR ---
Subjective Subjective Notes mild pains overnight, better this am, tolerating diet, does not like protein shakes, no fevers Objective Vitals/I&O Vital Signs Date Time Temp Pulse Resp B/P (MAP) Pulse Ox O2 Delivery O2 Flow Rate FiO2 12/22/16 08:20 98.1 82 17 135/71 (92) 98 Labs Date/Time Source Procedure Growth Status 12/17/16 10:00 Blood Peripheral Aerobic Blood Culture - Preliminary NO GROWTH IN 4 DAYS Resulted 12/17/16 10:00 Blood Peripheral Anaerobic Blood Culture - Preliminary NO GROWTH IN 4 DAYS Resulted 12/17/16 12:25 Wound Abdomen Gram Stain - Final Complete 12/17/16 12:25 Wound Culture - Final Klebsiella Pneumoniae Pseudomonas Aeruginosa Escherichia Coli Complete Radiology Last 48 hours Impressions Chest X-Ray 12/17/16925 Signed Impressions: Service Date/Time: Saturday, December 17, 2016 10:16 - CONCLUSION: Negative for acute process. Kieran Babb MD FACR Abdomen/Pelvis CT 12/17/16925 Signed Impressions: Service Date/Time: Saturday, December 17, 2016 11:34 - CONCLUSION: There is free air in the abdomen. Most of the free air is in the upper abdomen with air seen around the hepatic artery. Suspect a perforation of a viscus, most likely in the upper GI tract location. The other possibility could be the surgical anastomosis from patient's prior colon resection. 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
[2016-12-22 12:23] VITALS: BP 138/63; PULSE 95; RESP 17; TEMP 97.6; O2SAT 100
[2016-12-22] MEDS: FLUCONAZOLE 200 MG PREMIX BAG 100 ML IV SCH (14:15)
[2016-12-22 16:33] VITALS: BP 135/60; PULSE 75; RESP 18; TEMP 98; O2SAT 98
[2016-12-22 20:23] VITALS: BP 140/67; PULSE 80; RESP 18; TEMP 98.5; O2SAT 96
[2016-12-23 00:09] VITALS: BP 141/65; PULSE 78; RESP 16; TEMP 98; O2SAT 97
[2016-12-23] MEDS: SODIUM CHLOR 0.9% 1000 ML INJ 1,000 ML IV SCH ×2 (04:15→16:48)
[2016-12-23] MEDS: PIPERACIL-TAZO 3.375 GM PREMIX 50 ML IV SCH ×3 (04:15→20:12)
[2016-12-23 04:48] VITALS: BP 143/67; PULSE 83; RESP 16; TEMP 98.2; O2SAT 97
[2016-12-23 08:01] VITALS: BP 144/77; PULSE 82; RESP 17; TEMP 97.4; O2SAT 98
[2016-12-23] MEDS: SODIUM CHLORIDE 0.9% FLUSH 10 ML FLUSH IV FLUSH SCH ×2 (08:17→20:13)
[2016-12-23] MEDS: LORazepam 2 MG/ML VIAL IV PUSH PRN ×2 (08:18→22:49)
[2016-12-23] MEDS: PANTOPRAZOLE SODIUM 40 MG VIAL IV PUSH SCH (08:18)
[2016-12-23 12:15] VITALS: BP 125/65; PULSE 92; RESP 18; TEMP 97.8; O2SAT 96
[2016-12-23] MEDS: FLUCONAZOLE 200 MG PREMIX BAG 100 ML IV SCH (14:45)
--- NOTE | 2016-12-23 16:16 | HHI.PR ---
cc: Clive Anna MD Subjective Subjective Notes DAILY PROGRESS NOTE FOR SURGICAL ATTENDING, DR. CLIVE ANNA I feel better after passing gas I think i had gas pains My wound is healing up Objective Vitals/I&O Vital Signs Date Time Temp Pulse Resp B/P (MAP) Pulse Ox O2 Delivery O2 Flow Rate FiO2 12/23/16 12:15 97.8 92 18 125/65 (39) 97 Allergies Coded Allergies Type Severity Reaction Last Updated Verified Sulfa (Sulfonamide Antibiotics) Allergy Severe Itching 11/23/16 No morphine Allergy Severe 11/23/16 No metronidazole Adverse Reaction Intermediate Nausea/Vomiting 12/17/16 Yes 12/21/16 12/21/16 12/22/16 12/22/16 12/23/16 12/23/16 06:00 18:00 06:00 18:00 06:00 18:00 Intake Total 360 ml 1100 ml Balance 360 ml 1100 ml Intake Oral 360 ml IV Total 1100 ml # Voids 5 6 4 2 # Bowel Movements 0 1 0 Orders Procedure Category Date Status Time Vascular Access Team BILL 12/20/16 In Process Consult/P 18:52 Vascular Poc IMGUS 12/20/16 Taken Ultrasound Vascular Access Team BILL 12/22/16 In Process Consult/P 12:27 Vascular Poc IMGUS 12/22/16 Taken Ultrasound Vital Signs Date Time Temp Pulse Resp B/P (MAP) Pulse Ox O2 Delivery O2 Flow Rate FiO2 12/23/16 12:15 97.8 92 18 125/65 (85) 96 12/23/16 08:01 97.4 82 17 144/77 (99) 98 12/23/16 04:48 98.2 83 16 143/67 (92) 97 12/23/16 00:09 98.0 78 16 141/65 (90) 97 12/22/16 20:23 98.5 80 18 140/67 (91) 96 12/22/16 16:33 98.0 75 18 135/60 (85) 98 12/22/16 12:23 97.6 95 17 138/63 (88) 100 12/22/16 08:20 98.1 82 17 135/71 (92) 98 12/22/16 04:00 98.3 79 18 140/64 (89) 97 12/21/16 20:00 98.5 93 18 137/68 (91) 98 12/21/16 12:30 97.3 97 18 126/62 (83) 97 12/21/16 07:42 98.0 81 18 133/69 (90) 98 12/21/16 04:56 98.2 88 18 137/81 (99) 97 12/21/16 00:00 98.1 83 19 130/70 (90) 98 12/20/16 20:00 98.4 91 18 137/70 (92) 98 Labs Laboratory Tests Test 12/17/16 09:50 12/17/16 09:55 12/17/16 12:25 12/20/16 07:36 Lactic Acid Level 1.7 mmol/L Differential Total Cells Counted 100 Neutrophils % (Manual) 65 % Band Neutrophils % 5 % Lymphocytes % 16 % Monocytes % 11 % Basophils % 1 % Neutrophils # (Manual) 5.7 TH/MM3 Metamyelocytes 2 % Nucleated Red Blood Cells 3 /100 WBC Platelet Estimate HIGH Platelet Morphology Comment NORMAL Target Cells 1+ Blood Urea Nitrogen 11 MG/DL 5 MG/DL Creatinine 0.59 MG/DL 0.35 MG/DL Random Glucose 81 MG/DL 71 MG/DL Total Protein 6.7 GM/DL Albumin 2.0 GM/DL Calcium Level 8.9 MG/DL 7.9 MG/DL Magnesium Level 2.0 MG/DL 2.0 MG/DL Alkaline Phosphatase 80 U/L Aspartate Amino Transf (AST/SGOT) 20 U/L Alanine Aminotransferase (ALT/SGPT) 25 U/L Total Bilirubin 0.2 MG/DL Sodium Level 139 MEQ/L 138 MEQ/L Potassium Level 3.8 MEQ/L 3.9 MEQ/L Chloride Level 104 MEQ/L 107 MEQ/L Carbon Dioxide Level 24.0 MEQ/L 20.4 MEQ/L Prealbumin 13 MG/DL Lipase 63 U/L Urine Color LIGHT-YELLOW Urine Turbidity CLEAR Urine pH 7.5 Urine Specific [place] 1.007 Urine Protein NEG mg/dL Urine Glucose (UA) NEG mg/dL Urine Ketones NEG mg/dL Urine Occult Blood NEG Urine Nitrite NEG Urine Bilirubin NEG Urine Urobilinogen LESS THAN 2.0 MG/DL Urine Leukocyte Esterase NEG Urine WBC 2 /hpf Urine Squamous Epithelial Cells 1 /hpf Microscopic Urinalysis Comment CATH-CULT NOT IND Anion Gap 11 MEQ/L Estimat Glomerular Filtration Rate 189 ML/MIN Test 12/20/16 10:35 White Blood Count 8.0 TH/MM3 Red Blood Count 3.93 MIL/MM3 Hemoglobin 11.6 GM/DL Hematocrit 35.0 % Mean Corpuscular Volume 89.1 FL Mean Corpuscular Hemoglobin 29.6 PG Mean Corpuscular Hemoglobin Concent 33.2 % Red Cell Distribution Width 19.2 % Platelet Count 752 TH/MM3 Mean Platelet Volume 7.2 FL Neutrophils (%) (Auto) 62.5 % Lymphocytes (%) (Auto) 22.3 % Monocytes (%) (Auto) 10.9 % Eosinophils (%) (Auto) 2.9 % Basophils (%) (Auto) 1.4 % Neutrophils # (Auto) 5.0 TH/MM3 Lymphocytes # (Auto) 1.8 TH/MM3 Monocytes # (Auto) 0.9 TH/MM3 Eosinophils # (Auto) 0.2 TH/MM3 Basophils # (Auto) 0.1 TH/MM3 CBC Comment DIFF FINAL Differential Comment Radiology Last Impressions Chest X-Ray 12/17/16925 Signed Impressions: Service Date/Time: Saturday, December 17, 2016 10:16 - CONCLUSION: Negative for acute process. Kieran Babb MD FACR Abdomen/Pelvis CT 12/17/16925 Signed Impressions: Service Date/Time: Saturday, December 17, 2016 11:34 - CONCLUSION: There is free air in the abdomen. Most of the free air is in the upper abdomen with air seen around the hepatic artery. Suspect a perforation of a viscus, most likely in the upper GI tract location. The other possibility could be the surgical anastomosis from patient's prior colon resection. 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 Patient is not septic, does not have peritonitis. She is anemic likely related to malnutrition.She has anxiety disorder. Feels better. Drainage from wound worrisome for bowel leak, but no odor, no obvious fascial defect. Continue to improve nutrition. Dressing changed. Pt requests we keep meds IV as she does poorly with pills. Patient looks fairly healthy at this point Continue current management Attending Statement NOTE FOR SURGICAL ATTENDING, DR. CLIVE ANNA I attest that I had a [id number] encounter with the patient on the same day, and personally performed and documented my assessment and findings in the medical record. The following services were provided during this hospital visit: Chart data review, vital sign assessments/reviewing monitor data Review of consultations notes if present. Medication orders/review and/or management Ordering and/or reviewing lab tests Ordering and/or interpreting/reviewing x-rays and/or diagnostic studies Care of the patient and discussion of the patient with the care team Documentation time To help prompt me to consider important information that might be impacting today's encounter and assessment, information from prior notes written by myself or my colleagues may have been "brought forward/copy and pasted" into today's note. Clive Anna MD Dec 23, 2016 16:15
[2016-12-23 16:34] VITALS: BP 137/81; PULSE 89; RESP 18; TEMP 97.9; O2SAT 98
[2016-12-23 19:52] VITALS: BP 153/77; PULSE 76; RESP 16; TEMP 98.1; O2SAT 98
[2016-12-24 00:43] VITALS: BP 159/75; PULSE 80; RESP 20; TEMP 98.1; O2SAT 97
[2016-12-24] MEDS: PIPERACIL-TAZO 3.375 GM PREMIX 50 ML IV SCH ×3 (03:51→21:08)
[2016-12-24 05:21] VITALS: BP 145/76; PULSE 79; RESP 16; TEMP 98.2; O2SAT 98
[2016-12-24 08:19] VITALS: BP 156/77; PULSE 85; RESP 16; TEMP 98.1; O2SAT 97
[2016-12-24] MEDS: SODIUM CHLOR 0.9% 1000 ML INJ 1,000 ML IV SCH (08:33)
[2016-12-24] MEDS: SODIUM CHLORIDE 0.9% FLUSH 10 ML FLUSH IV FLUSH SCH ×2 (09:00→21:00)
[2016-12-24] MEDS: PANTOPRAZOLE SODIUM 40 MG VIAL IV PUSH SCH (09:08)
[2016-12-24] MEDS: SCOPOLAMINE 1.5 MG PATCH T-DERMAL SCH (09:10)
[2016-12-24] MEDS: REMOVE OLD SCOPOLAMINE PATCH T-DERMAL SCH (09:40)
[2016-12-24] MEDS: LORazepam 2 MG/ML VIAL IV PUSH PRN (11:12)
[2016-12-24 12:30] VITALS: BP 152/82; PULSE 84; RESP 16; TEMP 98.2; O2SAT 98
--- NOTE | 2016-12-24 12:33 | HHI.PR ---
Subjective Subjective Notes eating vegetable soup now, doing well. Drainage from wound much less. Walked halls, but experienced some B lateral hip pain, ? etiology. Objective Vitals/I&O Vital Signs Date Time Temp Pulse Resp B/P (MAP) Pulse Ox O2 Delivery O2 Flow Rate FiO2 12/24/16 08:19 98.1 85 16 156/77 (103) 97 Labs Date/Time Source Procedure Growth Status 12/17/16 10:00 Blood Peripheral Aerobic Blood Culture - Final NO GROWTH IN 5 DAYS Complete 12/17/16 10:00 Blood Peripheral Anaerobic Blood Culture - Final NO GROWTH IN 5 DAYS Complete 12/17/16 12:25 Wound Abdomen Gram Stain - Final Complete 12/17/16 12:25 Wound Culture - Final Klebsiella Pneumoniae Pseudomonas Aeruginosa Escherichia Coli Complete Radiology Last Impressions Chest X-Ray 12/17/16925 Signed Impressions: Service Date/Time: Saturday, December 17, 2016 10:16 - CONCLUSION: Negative for acute process. Kieran Babb MD FACR Abdomen/Pelvis CT 12/17/16925 Signed Impressions: Service Date/Time: Saturday, December 17, 2016 11:34 - CONCLUSION: There is free air in the abdomen. Most of the free air is in the upper abdomen with air seen around the hepatic artery. Suspect a perforation of a viscus, most likely in the upper GI tract location. The other possibility could be the surgical anastomosis from patient's prior colon resection. Alo Noel MD Cardiovascular: Regular Lungs: Clear Abdomen: Non-distended, Non-tender, Other (wound fairly clean, drainage pink serous, no more green/brouwn drainage. ) Extremities: No edema, Perfused Narrative Exam . A/P Assessment and Plan 4 weeks post open sigmoid resection for severe diverticular disease, several months post emergent splenectomy for splenic capsular tear during colonoscopy, Now with free air likely from duodenal ulcer- stress, ibuprofen, poor nutrition - less likely from colonic anastomosis. Patient is not septic, does not have peritonitis. She is anemic likely related to malnutrition.She has anxiety disorder. No further enteric concerning drainage. Eating somewhat better, had a couple of subs over the weekend. Anxiety still an issue. Will restart regular BP and anxiety meds. Plan CT A/P tomorrow morning with oral and rectal contrast, discussed in detail with patient and family, she will take as much oral contrast as she can handle without feeling sick. Home when she can stay hydrated, have normal nutrition, and walk around on her own without feeling like she could fall. Francisco Hinton MD Dec 24, 2016 12:33
[2016-12-24] MEDS: FLUCONAZOLE 200 MG PREMIX BAG 100 ML IV SCH (14:53)
[2016-12-24 16:58] VITALS: BP 160/77; PULSE 80; RESP 17; TEMP 98.1; O2SAT 99
[2016-12-24 20:00] VITALS: BP 152/69; PULSE 76; RESP 18; TEMP 97.3; O2SAT 98
[2016-12-24] MEDS: ALPRAZolam 1 MG TAB PO PRN (21:56)
[2016-12-25] VITALS: BP 147/67; PULSE 73; RESP 18; TEMP 97.5; O2SAT 98
[2016-12-25] MEDS: SODIUM CHLOR 0.9% 1000 ML INJ 1,000 ML IV SCH ×3 (00:16→23:48)
[2016-12-25 04:00] VITALS: BP 145/78; PULSE 87; RESP 18; TEMP 98.1; O2SAT 97
[2016-12-25] MEDS: PIPERACIL-TAZO 3.375 GM PREMIX 50 ML IV SCH ×3 (04:46→21:08)
[2016-12-25] MEDS: ALPRAZolam 1 MG TAB PO PRN ×2 (04:46→21:08)
[2016-12-25] MEDS ORDERED: DIATRIZOATE MEGLUM/DIATRIZOATE SOD 9 ML CUP PO ONE (06:00)
[2016-12-25 08:26] VITALS: BP 158/72; PULSE 93; RESP 17; TEMP 97.6; O2SAT 98
[2016-12-25] MEDS: SODIUM CHLORIDE 0.9% FLUSH 10 ML FLUSH IV FLUSH SCH ×2 (09:00→21:00)
[2016-12-25] MEDS: LISINOPRIL 10 MG TAB PO SCH (09:34)
[2016-12-25] MEDS: PANTOPRAZOLE SODIUM 40 MG VIAL IV PUSH SCH (09:34)
[2016-12-25] MEDS ORDERED: SOD PHOSPHATE/SOD BIPHOSPHATE (ADULT) ENEMA 133ML RECTAL ONE (10:45)
[2016-12-25 11:49] VITALS: BP 156/77; PULSE 103; RESP 17; TEMP 98.2; O2SAT 95
[2016-12-25] MEDS ORDERED: IOHEXOL 350 MG/ML 10 ML VIAL (for RAD DIAG) IVCONTRAST ONE (12:24)
--- NOTE | 2016-12-25 13:15 | RADRPT ---
EXAM DATE/TIME: 12/25/2016 12:20 [facility] COMPARISON: CT ABDOMEN & PELVIS W CONTRAST, December 17, 2016, 11:34. INDICATIONS : Evaluate for etiology of free air. 4 weeks status post sigmoid resection. IV CONTRAST: 90 cc Omnipaque 350 (iohexol) IV ORAL CONTRAST: Prescribed oral contrast ingested. RADIATION DOSE: 4.69 CTDIvol (mGy) MEDICAL HISTORY : Hypertension. Cardiovascular disease SURGICAL HISTORY : Splenectomy. Appendectomy.Sigmoid resection ENCOUNTER: Subsequent ACUITY: 1 month PAIN SCALE: 0/10 LOCATION: Abdomen. TECHNIQUE: Volumetric scanning of the abdomen and pelvis was performed. Using automated exposure control and ad justment of the mA and/or kV according to patient size, radiation dose was kept as low as reasonably achievable to obtain optimal diagnostic quality images. DICOM format image data is available electro nically for review and comparison. FINDINGS: LOWER LUNGS: A new small left pleural effusion with associated passive atelectasis. Right lung base is clear. LIVER: Homogeneous density. There are tiny scattered low density lesions involving the liver likely related a cyst. These are stable There is no dilation of the biliary tree. No calcified gallstones. SPLEEN: Surgically absent. PANCREAS: Within normal limits. KIDNEYS: Normal in size and shape. There is no mass, stone or hydronephrosis. ADRENAL GLANDS: Within normal limits. VASCULAR: There is no aortic aneurysm. BOWEL/MESENTERY: Again seen is pneumoperitoneum. The location of the pneumoperitoneum is different than on the prior s tudy. The majority of the free air is within the anterior aspect of the peritoneal cavity within the lower abdomen and upper pelvis. The air adjacent to the karen hepatis on the prior study is no longer present. Overall the volume of pneumoperitoneum is stable to slightly increased. Surgical clips are seen involving the sigmoid colon. There is stranding of the fat adjacent to the anastomotic site. The remaining bowel structures are normal. No free fluid. No dilatation. No abscess. ABDOMINAL WALL: There is a anterior bowel wall incision. No hernia. RETROPERITONEUM: There is no lymphadenopathy. BLADDER: No wall thickening or mass. REPRODUCTIVE: Within normal limits. INGUINAL: There is no lymphadenopathy or hernia. MUSCULOSKELETAL: Within normal limits for patient age. CONCLUSION: 1. Persistent pneumoperitoneum. There is some stranding of the mesenteric fat adjacent to the sigmoid anastomosis. I feel the pneumoperitoneum is arising from the sigmoid anastomosis. I do not see an ab scess, ileus, or obstruction. 2. New small left pleural effusion with associated atelectasis. Ricardo Mane Jr., MD on December 25, 2016 at 13:02 Board Certified Radiologist. This report was verified electronically.
--- NOTE | 2016-12-25 13:22 | HHI.PR ---
Subjective Subjective Notes Just back from CT, she did well. Nausea very infrequent now. feels pretty strong in her legs, has not really pushed herself when it comes to walking. Objective Vitals/I&O Vital Signs Date Time Temp Pulse Resp B/P (MAP) Pulse Ox O2 Delivery O2 Flow Rate FiO2 12/25/16 11:49 98.2 103 17 156/77 (103) 95 Labs Date/Time Source Procedure Growth Status 12/17/16 10:00 Blood Peripheral Aerobic Blood Culture - Final NO GROWTH IN 5 DAYS Complete 12/17/16 10:00 Blood Peripheral Anaerobic Blood Culture - Final NO GROWTH IN 5 DAYS Complete 12/17/16 12:25 Wound Abdomen Gram Stain - Final Complete 12/17/16 12:25 Wound Culture - Final Klebsiella Pneumoniae Pseudomonas Aeruginosa Escherichia Coli Complete Radiology Last Impressions Chest X-Ray 12/17/16925 Signed Impressions: Service Date/Time: Saturday, December 17, 2016 10:16 - CONCLUSION: Negative for acute process. Kieran Babb MD FACR Abdomen/Pelvis CT 12/17/16925 Signed Impressions: Service Date/Time: Saturday, December 17, 2016 11:34 - CONCLUSION: There is free air in the abdomen. Most of the free air is in the upper abdomen with air seen around the hepatic artery. Suspect a perforation of a viscus, most likely in the upper GI tract location. The other possibility could be the surgical anastomosis from patient's prior colon resection. Alo Noel MD Cardiovascular: Regular Lungs: Clear Abdomen: Non-distended, Non-tender, Other (wound unchanged, clear yellow serous drainage on dressing today, no GI contents.) Extremities: No edema, Perfused Narrative Exam . A/P Assessment and Plan 4 weeks post open sigmoid resection for severe diverticular disease, several months post emergent splenectomy for splenic capsular tear during colonoscopy, Now with free air likely from from colonic anastomosis, CT suggests such. No leak of rectal contrast, free air now mostly lower abdominal. Patient is not septic, does not have peritonitis. She is anemic likely related to malnutrition.She has anxiety disorder. No further enteric concerning drainage. Tolerating oral diet, family has brought in high protein foods for her to try. Plan stop IVFs, assess her ability to maintain hydration and nutrition. Hoping she can get to the point of caring for self and maintaining nutrition and hydration and get home soon. BENITA vergara. Francisco Hinton MD Dec 25, 2016 13:22
[2016-12-25 15:57] VITALS: BP 133/64; PULSE 92; RESP 17; TEMP 98.1; O2SAT 98
[2016-12-25 20:00] VITALS: BP 127/58; PULSE 107; RESP 18; TEMP 98.3; O2SAT 98
[2016-12-26] VITALS (10 sets, daily range): BP systolic 108–147; BP diastolic 53–66; PULSE 92–125; RESP 16–18; TEMP 98–98.6; O2SAT 97–100
[2016-12-26] MEDS: PIPERACIL-TAZO 3.375 GM PREMIX 50 ML IV SCH ×3 (05:05→21:47)
[2016-12-26] MEDS: ALPRAZolam 1 MG TAB PO PRN ×2 (08:38→21:46)
[2016-12-26] MEDS: LISINOPRIL 10 MG TAB PO SCH (08:38)
[2016-12-26] MEDS: PANTOPRAZOLE SODIUM 40 MG VIAL IV PUSH SCH (08:39)
[2016-12-26] MEDS: SODIUM CHLORIDE 0.9% FLUSH 10 ML FLUSH IV FLUSH SCH ×2 (08:39→21:46)
--- NOTE | 2016-12-26 10:53 | HHI.PR ---
Subjective Subjective Notes Moved rooms and c/o odor in room. I can't smell it, but her sister in law confirms. D/W nursing service administrator. Diarrhea after CT. tolerating diet well. Objective Vitals/I&O Vital Signs Date Time Temp Pulse Resp B/P (MAP) Pulse Ox O2 Delivery O2 Flow Rate FiO2 12/26/16 07:55 98.6 95 18 117/66 (83) 98 Labs Date/Time Source Procedure Growth Status 12/17/16 10:00 Blood Peripheral Aerobic Blood Culture - Final NO GROWTH IN 5 DAYS Complete 12/17/16 10:00 Blood Peripheral Anaerobic Blood Culture - Final NO GROWTH IN 5 DAYS Complete 12/17/16 12:25 Wound Abdomen Gram Stain - Final Complete 12/17/16 12:25 Wound Culture - Final Klebsiella Pneumoniae Pseudomonas Aeruginosa Escherichia Coli Complete Radiology Last Impressions Chest X-Ray 12/17/16925 Signed Impressions: Service Date/Time: Saturday, December 17, 2016 10:16 - CONCLUSION: Negative for acute process. Kirean Babb MD FACR Abdomen/Pelvis CT 12/17/16925 Signed Impressions: Service Date/Time: Saturday, December 17, 2016 11:34 - CONCLUSION: There is free air in the abdomen. Most of the free air is in the upper abdomen with air seen around the hepatic artery. Suspect a perforation of a viscus, most likely in the upper GI tract location. The other possibility could be the surgical anastomosis from patient's prior colon resection. Alo Noel MD Cardiovascular: Regular, Other (sinus tachycardia) Lungs: Clear Abdomen: Non-distended, Non-tender, Other (dressing dry and intact.) Extremities: No edema, Perfused Narrative Exam . A/P Assessment and Plan 4 weeks post open sigmoid resection for severe diverticular disease, several months post emergent splenectomy for splenic capsular tear during colonoscopy, Now with free air likely from from colonic anastomosis, CT suggests such. No leak of rectal contrast, free air now mostly lower abdominal. Patient is not septic, does not have peritonitis. She is anemic likely related to malnutrition, has received pRBC transfusion and is stable.She has anxiety disorder. No further enteric concerning drainage. Tolerating oral diet, family has brought in high protein foods for her to try. Tylenol for pain. Check electrolytes, prealbumin, CBC. Plan DC home tomorrow or Saturday. Case management to assess needs for DC. Francisco Hinton MD Dec 26, 2016 10:53
[2016-12-26] MEDS: ACETAMINOPHEN 325 MG TAB PO PRN (14:07)
--- NOTE | 2016-12-26 14:49 | HHI.FF ---
Face to Face Verification Diagnosis: (1) Postoperative wound infection Physical Therapy Order: Evaluate and Treat, Improve ambulation, Strength and gait training Instructions: No restrictions Home Health Nursing Order: Wound care and dressing changes Instructions: 1/2 inch iodoform guaze wick dressing change to small opening inferior aspect of midline wound twice daily Pt may shower, remove dressing prior to shower, replace when she gets out Once daily by nurse and for family teaching for second change I have seen patient Coleen Moreno on 12/26/16. My clinical findings support the need for the requested home health care services because: High risk of falls I certify that my clinical findings support that this patient is homebound because: Post-op weakness Unsteady gait/balance Michelle Lane [facility] Dec 26, 2016 14:49
[2016-12-26 15:12] LABS: BASOPHIL # 0.1 TH/MM3 (0-0.2); BASOPHIL % 0.9 % (0.0-2.0); EOSINOPHIL # 0.1 TH/MM3 (0-0.4); EOSINOPHIL % 1.7 % (0.0-4.0); LYMPH % 22.3 % (9.0-44.0); LYMPHOCYTE # 1.7 TH/MM3 (1.0-4.8); MEAN CELL VOLUME 89.4 FL (80.0-100.0); MEAN CORPUSCULAR HEMOGLOBIN 29.1 PG (27.0-34.0); MEAN CORPUSCULAR HGB CONC 32.5 % (32.0-36.0); NEUT % 65.1 % (16.0-70.0); PLATELET COUNT 391 TH/MM3 (150-450); RED BLOOD COUNT 2.26 MIL/MM3 (4.00-5.30); RED CELL DISTRIBUTION WIDTH 21.2 % (11.6-17.2); WHITE BLOOD COUNT 7.8 TH/MM3 (4.0-11.0)
[2016-12-26 15:27] LABS: HEMO FLAGS DIFF FINAL
[2016-12-26 15:30] LABS: HEMATOCRIT 20.2 % (35.0-46.0)
[2016-12-26 15:42] LABS: BICARBONATE 28.6 MEQ/L (21.0-32.0); MAGNESIUM 2.2 MG/DL (1.5-2.5); POTASSIUM 4.1 MEQ/L (3.5-5.1)
--- NOTE | 2016-12-26 16:39 | PD.CONS ---
HPI History of Present Illness This is a 60 year old female patient with a complicated medical history. She underwent a colonoscopy as outpatient on July 31 and was found to have a splenic hemorrhage on CT scan. She then underwent exploratory laparotomy splenectomy, and repair of liver capsular tear for massive hemoperitoneum on 08/11. Of note, she was also noted to have a left lower quadrant mass in the sigmoid colon and left ovary with known history of diverticulitis/ diverticulosis. She recovered from surgery and was discharged on 08/20. She then went to the OR on 11/23/16 for sigmoid resection for diverticular disease. She was then seen on 12/14 by GS, who noted a small infection in the inferior portion of her midline incision and was given oral antibiotics. Since her surgery, she has had intermittent lower abdominal pain that she describes as a dull ache. She does report some nausea while on abx, but states that this subsided after she was off the abx. She has also had poor appetite, but again states that this is much improved since she has been off the antibiotics. She has lost 17 lbs since her original surgery in July. She was slightly constipated, but had several loose stools after an enema. On admission, she was evaluated with CT Scan abdomen and pelvis (12/17/16)---> There is free air in the abdomen. Most of the free air is in the upper abdomen with air seen around the hepatic artery. Suspect a perforation of viscus, most likely in the upper GI tract location. The other possibility could be surgical anastomosis from patient's prior colon resection. She then had a repeat CT scan abdomen and pelvis (12/25/16)---> Persistent pneumoperitoneum. There is some stranding of the mesenteric fat adjacent to the sigmoid anastomosis. I feel the pneumoperitoneum is arising from the sigmoid anastomosis. I do not see an abscess, ileus, or obstruction. New small left pleural effusion with associated atelectasis. Her H/H has dropped from 11.6/35.0 on 12/20 to 6.6/20.2 today. She has not had any obvious bleeding. GI has been consulted for further evaluation. (Massiel Gan) PFSH Past Medical History Diverticulosis, Diverticulitis Liver capsular tear Anxiety HTN Past Surgical History Exploratory laparotomy with splenectomy and repair liver capsular tear (August) Open resection of severely inflamed sigmoid colon (November 23, 2016) Appendectomy D&Cs Colonoscopy (Massiel Gan) Coded Allergies: Sulfa (Sulfonamide Antibiotics) (Unverified Allergy, Severe, Itching, ) morphine (Unverified Allergy, Severe, 11/23/16) metronidazole (Verified Adverse Reaction, Intermediate, Nausea/Vomiting, 12/17/16) Medications Allergies Coded Allergies Type Severity Reaction Last Updated Verified Sulfa (Sulfonamide Antibiotics) Allergy Severe Itching 11/23/16 No morphine Allergy Severe 11/23/16 No metronidazole Adverse Reaction Intermediate Nausea/Vomiting 12/17/16 Yes Active Scripts Medications Dose Route/Sig Max Daily Dose Days Date Category [antibiotic] 12/17/16 Reported Dulcolax Stool Softener (Docusate Sodium) 100 Mg Cap 100 Mg PO BID 12/17/16 Reported Lortab (Hydrocodone-Acetaminophen) 5-325 Mg Tab 1 Tab PO Q4H PRN 11/26/16 Rx Lisinopril 10 Mg Tab 10 Mg PO DAILY 05/07/16 Reported Xanax (Alprazolam) 1 Mg Tab 1 Mg PO Q6H PRN 05/07/16 Reported Family History Mother had DM Father had pulmonary fibrosis Social History Quit smoking 20 years ago No ETOH use. (Massiel Gan) Review of Systems Constitutional: COMPLAINS OF: Weight loss, Change in appetite Respiratory: DENIES: Cough Cardiovascular: DENIES: Chest pain Gastrointestinal: COMPLAINS OF: Abdominal pain, Constipation, Diarrhea, Nausea , DENIES: Black stools, Bloody stools, Vomiting, Heartburn, Hematemesis Musculoskeletal: DENIES: Joint pain Integumentary: DENIES: Abnormal pigmentation Hematologic/lymphatic: DENIES: Bruising Neurologic: DENIES: Headache Psychiatric: DENIES: Confusion (Massiel Gan) GI Exam Vitals I&O Vital Signs Date Time Temp Pulse Resp B/P (MAP) Pulse Ox O2 Delivery O2 Flow Rate FiO2 12/26/16 15:48 98.4 102 18 123/59 (80) 97 12/26/16 12:07 98.6 125 18 147/58 (87) 100 12/26/16 07:55 98.6 95 18 117/66 (83) 98 12/26/16 04:22 98.0 97 18 114/58 (76) 98 12/26/16 00:00 98.0 92 18 129/62 (84) 98 12/25/16 20:00 98.3 107 18 127/58 (81) 98 I/O 12/25/16 12/25/16 12/25/16 12/26/16 12/26/16 12/26/16 07:00 15:00 23:00 07:00 15:00 23:00 Intake Total 1000 ml 290 ml Output Total 4 ml Balance 1000 ml -4 ml 290 ml Intake Oral 240 ml IV Total 1000 ml 50 ml Output Urine Total 4 ml # Voids 6 6 5 # Bowel Movements 1 1 Imaging Last Impressions Abdomen/Pelvis CT 12/25/16 0600 Signed Impressions: Service Date/Time: Sunday, December 25, 2016 12:20 - CONCLUSION: 1. Persistent pneumoperitoneum. There is some stranding of the mesenteric fat adjacent to the sigmoid anastomosis. I feel the pneumoperitoneum is arising from the sigmoid anastomosis. I do not see an abscess, ileus, or obstruction. 2. New small left pleural effusion with associated atelectasis. Ricardo Mane Jr., MD Chest X-Ray 12/17/16 0926 Signed Impressions: Service Date/Time: Saturday, December 17, 2016 10:16 - CONCLUSION: Negative for acute process. Kieran Babb MD FACR Laboratory Test 12/26/16 14:32 White Blood Count 7.8 TH/MM3 Red Blood Count 2.26 MIL/MM3 Hemoglobin 6.6 GM/DL Hematocrit 20.2 % Mean Corpuscular Volume 89.4 FL Mean Corpuscular Hemoglobin 29.1 PG Mean Corpuscular Hemoglobin Concent 32.5 % Red Cell Distribution Width 21.2 % Platelet Count 391 TH/MM3 Mean Platelet Volume 8.3 FL Neutrophils (%) (Auto) 65.1 % Lymphocytes (%) (Auto) 22.3 % Monocytes (%) (Auto) 10.0 % Eosinophils (%) (Auto) 1.7 % Basophils (%) (Auto) 0.9 % Neutrophils # (Auto) 5.0 TH/MM3 Lymphocytes # (Auto) 1.7 TH/MM3 Monocytes # (Auto) 0.8 TH/MM3 Eosinophils # (Auto) 0.1 TH/MM3 Basophils # (Auto) 0.1 TH/MM3 CBC Comment DIFF FINAL Differential Comment Blood Urea Nitrogen 19 MG/DL Creatinine 0.53 MG/DL Random Glucose 114 MG/DL Calcium Level 8.3 MG/DL Magnesium Level 2.2 MG/DL Sodium Level 144 MEQ/L Potassium Level 4.1 MEQ/L Chloride Level 109 MEQ/L Carbon Dioxide Level 28.6 MEQ/L Anion Gap 6 MEQ/L Estimat Glomerular Filtration Rate 117 ML/MIN Prealbumin 17 MG/DL Date/Time Source Procedure Growth Status 12/17/16 10:00 Blood Peripheral Aerobic Blood Culture - Final NO GROWTH IN 5 DAYS Complete 12/17/16 10:00 Blood Peripheral Anaerobic Blood Culture - Final NO GROWTH IN 5 DAYS Complete 12/17/16 12:25 Wound Abdomen Gram Stain - Final Complete 12/17/16 12:25 Wound Culture - Final Klebsiella Pneumoniae Pseudomonas Aeruginosa Escherichia Coli Complete Physical Examination HEENT: Normocephalic; atraumatic; no jaundice. CHEST: CTA CARDIAC: RRR ABDOMEN: Soft, nondistended, nontender; no hepatosplenomegaly; bowel sounds are present in all four quadrants. Midline incision line, incision line - drsg d /i. EXTREMITIES: No clubbing, cyanosis, or edema. SKIN: Normal; no rash; no jaundice. SERVICE PLUMBER: No focal deficits; alert and oriented times three. (Massiel Gan) Assessment and Plan Plan ASSESSMENT: - Persistent pneumoperitoneum. S/P Colonoscopy (07/31), developed abdominal pain and found to have splenic hemorrhage. S/P exploratory laparotomy splenectomy, and repair of liver capsular tear for massive hemoperitoneum on 08/11/16. Of note, she was also noted to have a left lower quadrant mass in the sigmoid colon and left ovary with known history of diverticulitis/diverticulosis. SHe was discharged and then underwent sigmoid resection for diverticular disease 11/23/16. She returned to ER for severe generalized weakness. (+) intermittent lower abdominal pain that she describes as a dull ache. (+) Nausea, improved after completing abx. (+) Decreased appetite. (+) Wt. loss 17 lbs since her original surgery in July. CT Scan abdomen and pelvis (12/17/16)---> There is free air in the abdomen. Most of the free air is in the upper abdomen with air seen around the hepatic artery. Suspect a perforation of viscus, most likely in the upper GI tract location. The other possibility could be surgical anastomosis from patient's prior colon resection. Rpt CT scan abdomen and pelvis (12/25/16)---> Persistent pneumoperitoneum. There is some stranding of the mesenteric fat adjacent to the sigmoid anastomosis. I feel the pneumoperitoneum is arising from the sigmoid anastomosis. I do not see an abscess, ileus, or obstruction. New small left pleural effusion with associated atelectasis. GS following. Will plan for sigmoidoscopy in am. - Anemia, drop in hgb. HH dropped fromt 11.6/35.0 on 12/20 to 6.6/20.2 today. She has not had any obvious bleeding. S/P 3 units PRBC. PPI - Malnutrition, Wt. loss. 17 lb weight loss since . Appetite improved today. Ensure PLAN: - Plan for sigmoidoscopy - Obtain consents - NPO after MN - SSE x 2 - PPI - Monitor labs - GS following - Supportive care - Further recommendations to follow based on results of above - Pt seen and examined by Dr. Tirado and myself and this note is written on his behalf (Massiel Gan) Physician Comments Patient seen and examined Agree with above Continue with current supportive care Monitor labs Plan for EGD and flexible sigmoidoscopy tomorrow to further evaluate the pneumoperitoneum and the issue of anemia Case discussed with Dr. Hinton (Dontae Triado MD) Massiel Gan Dec 26, 2016 16:39 Dontae Tirado MD Dec 26, 2016 22:16
[2016-12-26] MEDS ORDERED: CHLORHEXIDINE GLUCONATE 2 % 1 PACK (2 CLOTHS) TOPICAL PRN (19:45)
[2016-12-26] MEDS ORDERED: LACTATED RINGER'S 1000 ML IV PRN (19:45)
[2016-12-26] MEDS ORDERED: POVIDONE IODINE 5% (ANTISEPSIS KIT) 4 APPLICATIONS EACH NARE PRN (19:45)
[2016-12-26] MEDS ORDERED: METOPROLOL TARTRATE 25 MG TAB PO PRN (19:45)
[2016-12-26] MEDS ORDERED: SODIUM CHLORID 0.9% 500 ML IV PRN (19:45)
[2016-12-27] VITALS (10 sets, daily range): BP systolic 118–166; BP diastolic 59–77; PULSE 83–103; RESP 16–19; TEMP 97.3–98.5; O2SAT 95–99
[2016-12-27] MEDS: PIPERACIL-TAZO 3.375 GM PREMIX 50 ML IV SCH ×3 (04:52→21:54)
[2016-12-27] MEDS: ALPRAZolam 1 MG TAB PO PRN (06:26)
--- NOTE | 2016-12-27 07:36 | HHI.PR ---
Subjective Subjective Notes had a great appetite yesterday. Watery diarrhea after CT yesterday a "couple of times" had black color change, otherwise no evidence fo blood in stool, no hematemesis. Had two fleets enemas this AM in preparation for flex sig, EGD this morning. Objective Vitals/I&O Vital Signs Date Time Temp Pulse Resp B/P (MAP) Pulse Ox O2 Delivery O2 Flow Rate FiO2 12/27/16 06:28 98.0 94 18 132/76 (94) 95 Labs Laboratory Tests Test 12/26/16 14:32 White Blood Count 7.8 Red Blood Count 2.26 Hemoglobin 6.6 Hematocrit 20.2 Mean Corpuscular Volume 89.4 Mean Corpuscular Hemoglobin 29.1 Mean Corpuscular Hemoglobin Concent 32.5 Red Cell Distribution Width 21.2 Platelet Count 391 Mean Platelet Volume 8.3 Neutrophils (%) (Auto) 65.1 Lymphocytes (%) (Auto) 22.3 Monocytes (%) (Auto) 10.0 Eosinophils (%) (Auto) 1.7 Basophils (%) (Auto) 0.9 Neutrophils # (Auto) 5.0 Lymphocytes # (Auto) 1.7 Monocytes # (Auto) 0.8 Eosinophils # (Auto) 0.1 Basophils # (Auto) 0.1 CBC Comment DIFF FINAL Differential Comment Blood Urea Nitrogen 19 Creatinine 0.53 Random Glucose 114 Calcium Level 8.3 Magnesium Level 2.2 Sodium Level 144 Potassium Level 4.1 Chloride Level 109 Carbon Dioxide Level 28.6 Anion Gap 6 Estimat Glomerular Filtration Rate 117 Prealbumin 17 Date/Time Source Procedure Growth Status 12/17/16 10:00 Blood Peripheral Aerobic Blood Culture - Final NO GROWTH IN 5 DAYS Complete 12/17/16 10:00 Blood Peripheral Anaerobic Blood Culture - Final NO GROWTH IN 5 DAYS Complete 12/17/16 12:25 Wound Abdomen Gram Stain - Final Complete 12/17/16 12:25 Wound Culture - Final Klebsiella Pneumoniae Pseudomonas Aeruginosa Escherichia Coli Complete Radiology Last Impressions Chest X-Ray 12/17/16 0907 Signed Impressions: Service Date/Time: Saturday, December 17, 2016 10:16 - CONCLUSION: Negative for acute process. Kieran Babb MD FACR Abdomen/Pelvis CT 12/17/16 0926 Signed Impressions: Service Date/Time: Saturday, December 17, 2016 11:34 - CONCLUSION: There is free air in the abdomen. Most of the free air is in the upper abdomen with air seen around the hepatic artery. Suspect a perforation of a viscus, most likely in the upper GI tract location. The other possibility could be the surgical anastomosis from patient's prior colon resection. Alo Noel MD Cardiovascular: Regular Lungs: Clear Abdomen: Non-distended, Non-tender, Other (dressing dry and intact, no further significant drainange.) Extremities: No edema, Perfused Narrative Exam . A/P Assessment and Plan 4 weeks post open sigmoid resection for severe diverticular disease, several months post emergent splenectomy for splenic capsular tear during colonoscopy, Now with free air likely from from colonic anastomosis, CT suggests such. No leak of rectal contrast, free air now mostly lower abdominal. Patient is not septic, does not have peritonitis. She is anemic likely related to malnutrition, has received pRBC transfusion and is stable.She has anxiety disorder. No further enteric concerning drainage. Repeat Hgb yesterday back down to 6. Unknown source of GI bleed, presumably. GI consulted, Dr Tirado to do EGD and flex sig this morning. She received two more units of pRBC and remains HD stable. DC plans on hold for now. Francisco Hinton MD Dec 27, 2016 07:36
[2016-12-27 07:49] LABS: HEMATOCRIT 30.8 % (35.0-46.0); MEAN CELL VOLUME 85.3 FL (80.0-100.0); MEAN CORPUSCULAR HEMOGLOBIN 28.5 PG (27.0-34.0); MEAN CORPUSCULAR HGB CONC 33.4 % (32.0-36.0); PLATELET COUNT 342 TH/MM3 (150-450); RED BLOOD COUNT 3.61 MIL/MM3 (4.00-5.30); RED CELL DISTRIBUTION WIDTH 21.9 % (11.6-17.2); REVIEW FLAG FINAL; WHITE BLOOD COUNT 7.6 TH/MM3 (4.0-11.0)
[2016-12-27] MEDS: SCOPOLAMINE 1.5 MG PATCH T-DERMAL SCH (08:43)
[2016-12-27] MEDS: PANTOPRAZOLE SODIUM 40 MG VIAL IV PUSH SCH (08:43)
[2016-12-27] MEDS: SODIUM CHLORIDE 0.9% FLUSH 10 ML FLUSH IV FLUSH SCH ×2 (08:43→21:00)
[2016-12-27] MEDS: LISINOPRIL 10 MG TAB PO SCH (08:43)
[2016-12-27] MEDS: REMOVE OLD SCOPOLAMINE PATCH T-DERMAL SCH (08:56)
--- NOTE | 2016-12-27 12:23 | PD.PROCEDR ---
GI Procedure REFERRING PHYSICIAN Dr. Hinton PROCEDURE PERFORMED EGD with biopsy followed by flexible sigmoidoscopy with biopsy INDICATION FOR PROCEDURE Anemia, persistent pneumoperitoneum PROCEDURE: The procedure, risks and benefits were discussed with Ms. Moreno and informed consent was obtained. Anesthesia sedated her with Diprivan. She was placed in the left lateral decubitus position. EGD: The Pentax videoscope was introduced through the oropharynx and advanced to the second portion of the duodenum under direct visualization. Retroflexion was performed in the stomach. FINDINGS: The esophagus this appeared to be unremarkable and within normal limits The stomach this too appeared to be unremarkable and within normal limits The duodenum there was quite a bit of edema in the duodenal sweep causing constriction of the duodenal lumen but I was able to traverse it into the second portion of the duodenum which appeared to be unremarkable and I couldn't make out whether there was any ulceration or not but biopsies were taken from this area certainly there was no active bleeding and no blood was seen Flexible Sigmoidoscopy: The Pentax videoscope was introduced through the rectum and advanced to the distal transverse colon. Retroflexion was performed in the rectum. Colonic prep was fair to poor FINDINGS: Solid stool was noted in the sigmoid and rectum but colonic mucosa appeared to be unremarkable except for the anastomosis which was at the rectosigmoid junction sutures were seen with some inflammation and possible ulceration with mild to moderate stricture and a fistula opening was seen and biopsies were taken from this area evaluation otherwise unremarkable ESTIMATED BLOOD LOSS: None SPECIMENS REMOVED: Duodenal and rectosigmoid junction biopsies COMPLICATIONS: None IMPRESSION: Duodenal stricture with some inflammation etiology unclear No source of bleeding noted 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 Recio regarding approach to rectosigmoid stricture with fistula Dontae Tirado MD Dec 27, 2016 12:23
[2016-12-27] MEDS ORDERED: HYDROmorphone HCL PF 1 MG/ML VIAL IV ONE (13:15)
[2016-12-27] MEDS ORDERED: MAGNESIUM CITRATE SOLN 300 ML BTL PO ONE ×2 (13:45→18:00)
[2016-12-27] MEDS: BISACODYL EC 5 MG TABEC PO SCH ×2 (15:28→21:50)
--- NOTE | 2016-12-27 15:42 | RADRPT ---
EXAM DATE/TIME: 12/27/2016 14:23 [facility] COMPARISON: No previous studies available for comparison. INDICATIONS : Duodenal stricture. Limited exam due to patient unable to drink enough contrast for diagnostic exam. FLUORO TIME: 0.5 minutes IMAGE COUNT: 8 CONTRAST: 1. Liquid E-Z Paque Barium Sulfate (60% w/v, 41% w.w) MEDICAL HISTORY : Hypertension. Anxiety. Claustrophobia. Carcinoma, basal cell. Carcinoma, pre melenoma SURGICAL HISTORY : Appendectomy. Tubal ligation. Dilation and curettage. [place] teeth extraction. ENCOUNTER: Subsequent ACUITY: 2 weeks PAIN SCORE: 8/10 LOCATION: abdomen FINDINGS: Initial manufacturing maintenance mechanic film demonstrates air-filled loops of small and large bowel which raises possibly of il eus. A very limited upper GI series was performed as patient was unable to drink more than a small am ount of barium. Limited evaluation of the esophagus demonstrates no stricture or obstruction. There i s only minimal opacification of the gastric fundus and therefore the stomach cannot be adequately karie luated on this examination. CONCLUSION: 1. Very limited upper GI series due to the patient's inability to drink more than a small amount of b arium. The esophagus is grossly unremarkable without obstruction or stricture. The gastric fundus is opacified but the remainder of the stomach is not opacified with contrast and therefore cannot be karie luated. 2. Air-filled loops of small and large bowel suggesting possible ileus. Clinical correlation is recom mended. Amadeo Slaughter MD on December 27, 2016 at 15:36 Board Certified Radiologist. This report was verified electronically.
[2016-12-27] MEDS ORDERED: CYCLOBENZAPRINE HCL 10 MG TAB PO PRN (15:45)
[2016-12-27] MEDS: SODIUM CHLOR 0.9% 1000 ML INJ 1,000 ML IV SCH (15:48)
[2016-12-27] MEDS ORDERED: PILL SPLITTER OTHER PRN (16:15)
[2016-12-27] MEDS: ONDANSETRON HCL 4 MG/2 ML VIAL IV PUSH PRN (16:33)
[2016-12-28 01:10] VITALS: BP 131/63; PULSE 92; RESP 18; TEMP 98.2; O2SAT 98
[2016-12-28] MEDS: PIPERACIL-TAZO 3.375 GM PREMIX 50 ML IV SCH ×3 (03:12→20:18)
[2016-12-28] MEDS: SODIUM CHLOR 0.9% 1000 ML INJ 1,000 ML IV SCH ×2 (04:25→16:57)
[2016-12-28 06:15] VITALS: BP 131/69; PULSE 97; RESP 18; TEMP 98.1; O2SAT 98
[2016-12-28 08:00] VITALS: BP 134/65; PULSE 96; RESP 18; TEMP 98; O2SAT 98
--- NOTE | 2016-12-28 08:24 | HHI.PR ---
Subjective Subjective Notes Had a rough day yesterday, experience gas pains after scopes, then UGI study with contrast made her nauseated and throw up. She is intolerant to oral barium and has been. Her son at her bedside from [place], that helps. Objective Vitals/I&O Vital Signs Date Time Temp Pulse Resp B/P (MAP) Pulse Ox O2 Delivery O2 Flow Rate FiO2 12/28/16 06:15 98.1 97 18 131/69 (89) 98 12/27/16 21:41 Room Air Labs Laboratory Tests Test 12/27/16 13:58 Hemoglobin 10.0 Date/Time Source Procedure Growth Status 12/17/16 10:00 Blood Peripheral Aerobic Blood Culture - Final NO GROWTH IN 5 DAYS Complete 12/17/16 10:00 Blood Peripheral Anaerobic Blood Culture - Final NO GROWTH IN 5 DAYS Complete 12/17/16 12:25 Wound Abdomen Gram Stain - Final Complete 12/17/16 12:25 Wound Culture - Final Klebsiella Pneumoniae Pseudomonas Aeruginosa Escherichia Coli Complete Radiology Last Impressions Chest X-Ray 12/17/16925 Signed Impressions: Service Date/Time: Saturday, December 17, 2016 10:16 - CONCLUSION: Negative for acute process. Kieran Babb MD FACR Abdomen/Pelvis CT 12/17/16925 Signed Impressions: Service Date/Time: Saturday, December 17, 2016 11:34 - CONCLUSION: There is free air in the abdomen. Most of the free air is in the upper abdomen with air seen around the hepatic artery. Suspect a perforation of a viscus, most likely in the upper GI tract location. The other possibility could be the surgical anastomosis from patient's prior colon resection. Alo Noel MD Cardiovascular: Regular Lungs: Clear Abdomen: Non-distended, Non-tender, Other (wound with minimal yellow serous drainage. No erythema.) Extremities: No edema, Perfused Narrative Exam . A/P Assessment and Plan 4 weeks post open sigmoid resection for severe diverticular disease, several months post emergent splenectomy for splenic capsular tear during colonoscopy, Now with free air likely from from colonic anastomosis, CT suggests such. No leak of rectal contrast, free air now mostly lower abdominal. Patient is not septic, does not have peritonitis. She is anemic likely related to malnutrition, has received pRBC transfusion and is stable.She has anxiety disorder. No further enteric concerning drainage. HGB 10 yesterday. Discussed with patient and son potential etiologies for anemia, chronic disease , GI blood loss, bone marrow falling behind, etc. We talked about alternatives to UGISBFT, including doing a pillcam as an outpatient. She has an edematous duodenum and a colonic anastomotic fistula, likely to her wound, that is not draining anymore. This should heal with improved nutrition. Plan now is hospitalization through the weekend, improve nutrition, continue abx and PPI.. Manage anxiety, avoid contrast studies. If Hgb drops, support with transfusion and get hematology consult for their opinion. Francisco Hinton MD Dec 28, 2016 08:24
[2016-12-28] MEDS: SODIUM CHLORIDE 0.9% FLUSH 10 ML FLUSH IV FLUSH SCH ×2 (08:27→21:00)
[2016-12-28] MEDS: PANTOPRAZOLE SODIUM 40 MG VIAL IV PUSH SCH (08:27)
[2016-12-28] MEDS: LISINOPRIL 10 MG TAB PO SCH (08:27)
--- NOTE | 2016-12-28 11:06 | HHI.GIFU ---
Subjective Remarks Pt resting comfortably in bed. Complaining of mild abdominal pain that she thinks is from gas after her colonoscopy yesterday. Denies nausea, vomiting. Had a BM this morning, denies any blood in stool or black, tarry stool. Reports decreased appetite, was able to eat half a bagel for breakfast this morning. (Massiel Gan) Objective Vitals I&O Vital Signs Date Time Temp Pulse Resp B/P (MAP) Pulse Ox O2 Delivery O2 Flow Rate FiO2 12/28/16 08:00 98.0 96 18 134/65 (88) 98 12/28/16 06:15 98.1 97 18 131/69 (89) 98 12/28/16 01:10 98.2 92 18 131/63 (85) 98 12/27/16 21:42 98.3 99 18 134/60 (84) 99 12/27/16 21:41 Room Air 12/27/16 17:23 98.2 102 16 166/74 (104) 97 12/27/16 13:19 97.3 103 17 160/77 (104) 98 12/27/16 12:17 97.6 104 16 148/71 (96) 97 Room Air I/O 12/27/16 12/27/16 12/27/16 12/28/16 12/28/16 12/28/16 07:00 15:00 23:00 07:00 15:00 23:00 Intake Total 470 ml 350 ml 50 ml 1172 ml Balance 470 ml 350 ml 50 ml 1172 ml IV Total 50 ml 50 ml 50 ml 1172 ml Packed Cells 400 ml Blood Product IV Normal Saline Flush 20 ml Other 300 ml # Voids 1 1 2 # Bowel Movements 1 Laboratory Laboratory Tests Test 12/27/16 13:58 Hemoglobin 10.0 Date/Time Source Procedure Growth Status 12/17/16 10:00 Blood Peripheral Aerobic Blood Culture - Final NO GROWTH IN 5 DAYS Complete 12/17/16 10:00 Blood Peripheral Anaerobic Blood Culture - Final NO GROWTH IN 5 DAYS Complete 12/17/16 12:25 Wound Abdomen Gram Stain - Final Complete 12/17/16 12:25 Wound Culture - Final Klebsiella Pneumoniae Pseudomonas Aeruginosa Escherichia Coli Complete Imaging Last Impressions Upper GI Series 12/27/16 0000 Signed Impressions: Service Date/Time: December 14:23 - CONCLUSION: 1. Very limited upper GI series due to the patient's inability to drink more than a small amount of barium. The esophagus is grossly unremarkable without obstruction or stricture. The gastric fundus is opacified but the remainder of the stomach is not opacified with contrast and therefore cannot be evaluated. 2. Air-filled loops of small and large bowel suggesting possible ileus. Clinical correlation is recommended. Amadeo Slaughter MD Abdomen/Pelvis CT 12/25/16 0600 Signed Impressions: Service Date/Time: Sunday, December 25, 2016 12:20 - CONCLUSION: 1. Persistent pneumoperitoneum. There is some stranding of the mesenteric fat adjacent to the sigmoid anastomosis. I feel the pneumoperitoneum is arising from the sigmoid anastomosis. I do not see an abscess, ileus, or obstruction. 2. New small left pleural effusion with associated atelectasis. Ricardo Mane Jr., MD Chest X-Ray 12/17/16 0926 Signed Impressions: Service Date/Time: Saturday, December 17, 2016 10:16 - CONCLUSION: Negative for acute process. Kieran Babb MD FACR Physical Exam HEENT:Normocephalic; atraumatic; no jaundice. CHEST: CTA, diminished CARDIAC: RRR ABDOMEN: Soft, mildly distended, mild diffuse tenderness; no hepatosplenomegaly ; bowel sounds are present in all four quadrants. EXTREMITIES: No clubbing, cyanosis, or edema. SKIN: Normal; no rash; no jaundice. INTERNET MARKETING DIRECTOR: No focal deficits; alert and oriented times three. (Massiel Gan [facility]) Assessment and Plan Plan ASSESSMENT: - Persistent pneumoperitoneum. S/P Colonoscopy (07/31), developed abdominal pain and found to have splenic hemorrhage. S/P exploratory laparotomy splenectomy, and repair of liver capsular tear for massive hemoperitoneum on 08/11/16. Of note, she was also noted to have a left lower quadrant mass in the sigmoid colon and left ovary with known history of diverticulitis/diverticulosis. SHe was discharged and then underwent sigmoid resection for diverticular disease 11/23/16. She returned to ER for severe generalized weakness. (+) intermittent lower abdominal pain that she describes as a dull ache. (+) Nausea, improved after completing abx. (+) Decreased appetite. (+) Wt. loss 17 lbs since her original surgery in July. CT Scan abdomen and pelvis (12/17/16)---> There is free air in the abdomen. Most of the free air is in the upper abdomen with air seen around the hepatic artery. Suspect a perforation of viscus, most likely in the upper GI tract location. The other possibility could be surgical anastomosis from patient's prior colon resection. Rpt CT scan abdomen and pelvis (12/25/16)---> Persistent pneumoperitoneum. There is some stranding of the mesenteric fat adjacent to the sigmoid anastomosis. I feel the pneumoperitoneum is arising from the sigmoid anastomosis. I do not see an abscess, ileus, or obstruction. New small left pleural effusion with associated atelectasis. EGD and flex sigmoidoscopy (12/27/16) --> duodenal stricture with some inflammation etiology unclear. No source of bleeding noted. 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 Upper GI small bowel follow-through was ordered. UGI series with KUB (12/27/16) --> Very limited upper GI series due to the patient's inability to drink more than a small amount of barium. The esophagus is grossly unremarkable without obstruction or stricture. The gastric fundus is opacified but the remainder of the stomach is not opacified with contrast and therefore cannot be evaluated. Air filled loops of small and large bowel suggesting possible ileus. Clinical correlation is recommended. Pt is passing gas and reports normal BM this morning so ileus is unlikely. GS following for rectosigmoid stricture with fistula. 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 This should heal with improved nutrition. His plan is hospitalization through the weekend, improve nutrition , continue abx, and PPI. 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 GS feels this should improve with nutrition. - Anemia, drop in hgb. S/P 5 units PRBC. Hgb 10.0 - Malnutrition, Wt. loss. 17 lb weight loss since . Appetite improved today. Ensure PLAN: - HERMINIA - PPI - Monitor HH - Transfuse as needed - Encourage nutrition - Zosyn - Supportive care - Further recommendations to follow based on results of above - Pt seen and examined by Dr. Tirado and myself and this note is written on his behalf (Gan,Massiel Crsielda HOME THERAPY CLINICIAN) Physician Comments Patient seen and examined Agree with above Continue with current supportive care Monitor labs Pathology noted some inflammation but otherwise unremarkable Further recommendations shall depend on her hospital course (Dontae Tirado MD) Massiel Gan Dec 28, 2016 11:06 Dontae Tirado MD Dec 28, 2016 22:11
[2016-12-28 12:00] VITALS: BP 141/71; PULSE 115; RESP 18; TEMP 98.6; O2SAT 99
[2016-12-28 12:20] LABS: AUTOMATED NEUTROPHIL # 6.9 TH/MM3 (1.8-7.7); BASOPHIL # 0.1 TH/MM3 (0-0.2); BASOPHIL % 0.8 % (0.0-2.0); EOSINOPHIL # 0.2 TH/MM3 (0-0.4); HEMATOCRIT 31.9 % (35.0-46.0); HEMO FLAGS DIFF FINAL; LYMPH % 14.1 % (9.0-44.0); LYMPHOCYTE # 1.3 TH/MM3 (1.0-4.8); MEAN CELL VOLUME 86.8 FL (80.0-100.0); MEAN CORPUSCULAR HEMOGLOBIN 28.4 PG (27.0-34.0); MEAN CORPUSCULAR HGB CONC 32.7 % (32.0-36.0); MONO % 7.8 % (0.0-8.0); NEUT % 75.3 % (16.0-70.0); PLATELET COUNT 354 TH/MM3 (150-450); RED BLOOD COUNT 3.67 MIL/MM3 (4.00-5.30); RED CELL DISTRIBUTION WIDTH 22.5 % (11.6-17.2); WHITE BLOOD COUNT 9.1 TH/MM3 (4.0-11.0)
[2016-12-28 16:00] VITALS: BP 139/63; PULSE 104; RESP 18; TEMP 98.2; O2SAT 99
--- NOTE | 2016-12-28 18:16 | EKG ---
Date Performed: 12/27/2016 Time Performed: 11:22:47 PTAGE: 60 years EKG: Sinus rhythm NORMAL ECG Compared to PREVIOUS TRACING , heart rate is slower, otherwise no significant change. PREVIOUS TRACIN 08/16/2016 08.12 DOCTOR: Russ Myers Interpretating Date/Time 12/28/2016 18:14:39
[2016-12-28 20:42] VITALS: BP 142/74; PULSE 102; RESP 20; TEMP 98.1; O2SAT 97
[2016-12-28] MEDS: ALPRAZolam 1 MG TAB PO PRN (22:53)
[2016-12-29] VITALS (7 sets, daily range): BP systolic 134–156; BP diastolic 67–78; PULSE 87–95; RESP 18–20; TEMP 97.7–98.5; O2SAT 97–100
[2016-12-29] MEDS: PIPERACIL-TAZO 3.375 GM PREMIX 50 ML IV SCH ×3 (04:48→20:06)
[2016-12-29] MEDS: SODIUM CHLORIDE 0.9% FLUSH 10 ML FLUSH IV FLUSH SCH ×2 (07:52→20:06)
[2016-12-29] MEDS: PANTOPRAZOLE SODIUM 40 MG VIAL IV PUSH SCH (07:57)
[2016-12-29] MEDS: LISINOPRIL 10 MG TAB PO SCH (07:57)
--- NOTE | 2016-12-29 15:15 | HHI.GIFU ---
Subjective Remarks Pt seen in waiting area, she likes to walk around. She feels full after drinking an ensure, having continued early satiety. Admits soft stools, daily BM. (Polina Posada) Objective Vitals I&O Vital Signs Date Time Temp Pulse Resp B/P (MAP) Pulse Ox O2 Delivery O2 Flow Rate FiO2 12/29/16 12:00 97.8 93 18 134/67 (89) 100 12/29/16 09:39 Room Air 12/29/16 08:00 97.7 88 18 156/74 (101) 97 12/29/16 04:34 98.2 87 20 134/78 (96) 97 12/29/16 00:45 98.2 88 19 139/67 (91) 97 12/28/16 20:42 98.1 102 20 142/74 (96) 97 12/28/16 20:18 Room Air 12/28/16 16:00 98.2 104 18 139/63 (88) 99 I/O 12/28/16 12/28/16 12/28/16 12/29/16 12/29/16 12/29/16 07:00 15:00 23:00 07:00 15:00 23:00 Intake Total 1172 ml 50 ml 633 ml Balance 1172 ml 50 ml 633 ml IV Total 1172 ml 50 ml 633 ml # Voids 2 2 Laboratory Date/Time Source Procedure Growth Status 12/17/16 10:00 Blood Peripheral Aerobic Blood Culture - Final NO GROWTH IN 5 DAYS Complete 12/17/16 10:00 Blood Peripheral Anaerobic Blood Culture - Final NO GROWTH IN 5 DAYS Complete 12/17/16 12:25 Wound Abdomen Gram Stain - Final Complete 12/17/16 12:25 Wound Culture - Final Klebsiella Pneumoniae Pseudomonas Aeruginosa Escherichia Coli Complete Imaging Last Impressions Upper GI Series 12/27/16 0000 Signed Impressions: Service Date/Time: December 14:23 - CONCLUSION: 1. Very limited upper GI series due to the patient's inability to drink more than a small amount of barium. The esophagus is grossly unremarkable without obstruction or stricture. The gastric fundus is opacified but the remainder of the stomach is not opacified with contrast and therefore cannot be evaluated. 2. Air-filled loops of small and large bowel suggesting possible ileus. Clinical correlation is recommended. Amadeo Slaughter MD Abdomen/Pelvis CT 12/25/16 0600 Signed Impressions: Service Date/Time: Sunday, December 25, 2016 12:20 - CONCLUSION: 1. Persistent pneumoperitoneum. There is some stranding of the mesenteric fat adjacent to the sigmoid anastomosis. I feel the pneumoperitoneum is arising from the sigmoid anastomosis. I do not see an abscess, ileus, or obstruction. 2. New small left pleural effusion with associated atelectasis. Ricardo Mane Jr., MD Chest X-Ray 12/17/16 0926 Signed Impressions: Service Date/Time: Saturday, December 17, 2016 10:16 - CONCLUSION: Negative for acute process. Kieran Babb MD FACR Physical Exam HEENT:Normocephalic; atraumatic; no jaundice. CHEST: CTA, diminished CARDIAC: RRR ABDOMEN: Soft, mildly distended, mild diffuse tenderness; no hepatosplenomegaly ; bowel sounds are present in all four quadrants. EXTREMITIES: No clubbing, cyanosis, or edema. SKIN: Normal; no rash; no jaundice. RADIOLOGY SCHEDULER: No focal deficits; alert and oriented times three. (Polina Posada [facility]) Assessment and Plan Plan ASSESSMENT: - Persistent pneumoperitoneum. S/P Colonoscopy (07/31), developed abdominal pain and found to have splenic hemorrhage. S/P exploratory laparotomy splenectomy, and repair of liver capsular tear for massive hemoperitoneum on 08/11/16. Of note, she was also noted to have a left lower quadrant mass in the sigmoid colon and left ovary with known history of diverticulitis/diverticulosis. SHe was discharged and then underwent sigmoid resection for diverticular disease 11/23/16. She returned to ER for severe generalized weakness. (+) intermittent lower abdominal pain that she describes as a dull ache. (+) Nausea, improved after completing abx. (+) Decreased appetite. (+) Wt. loss 17 lbs since her original surgery in July. CT Scan abdomen and pelvis (12/17/16)---> There is free air in the abdomen. Most of the free air is in the upper abdomen with air seen around the hepatic artery. Suspect a perforation of viscus, most likely in the upper GI tract location. The other possibility could be surgical anastomosis from patient's prior colon resection. Rpt CT scan abdomen and pelvis (12/25/16)---> Persistent pneumoperitoneum. There is some stranding of the mesenteric fat adjacent to the sigmoid anastomosis. I feel the pneumoperitoneum is arising from the sigmoid anastomosis. I do not see an abscess, ileus, or obstruction. New small left pleural effusion with associated atelectasis. EGD and flex sigmoidoscopy (12/27/16) --> duodenal stricture with some inflammation etiology unclear. No source of bleeding noted. 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 Upper GI small bowel follow-through was ordered. UGI series with KUB (12/27/16) --> Very limited upper GI series due to the patient's inability to drink more than a small amount of barium. The esophagus is grossly unremarkable without obstruction or stricture. The gastric fundus is opacified but the remainder of the stomach is not opacified with contrast and therefore cannot be evaluated. Air filled loops of small and large bowel suggesting possible ileus. Clinical correlation is recommended. Pt is passing gas and reports normal BM this morning so ileus is unlikely. GS following for rectosigmoid stricture with fistula. 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 This should heal with improved nutrition. His plan is hospitalization through the weekend, improve nutrition , continue abx, and PPI. 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 GS feels this should improve with nutrition. - Anemia, drop in hgb. S/P 5 units PRBC. Hgb 10.0 - Malnutrition, Wt. loss. 17 lb weight loss since . Appetite improved today. Ensure 12/29/16 full after drinking ensure. continued early satiety. ambulating often. HH stable. + bm, soft stool. mild abd discomfort. PLAN: - ensure - HERMINIA - PPI - Monitor HH - Transfuse as needed - Encourage nutrition - Zosyn - Supportive care - Pt seen and examined by Dr. Tirado and myself and this note is written on his behalf (Polina Posada) Physician Comments Patient seen and examined Agree with above Continue with current supportive care Monitor labs Further plans as per the general surgery service Not much to add at this point from a GI perspective we will sign off (Dontae Tirado MD) Polina Posada Dec 29, 2016 15:15 Dontae Tirado MD Dec 29, 2016 21:54
--- NOTE | 2016-12-29 17:54 | HHI.PR ---
cc: Tee Hawthorne MD Subjective Subjective Notes Feels pretty good today; appetite still not very good, but she is "grazing" Minimal discomfort Objective Vitals/I&O Vital Signs Date Time Temp Pulse Resp B/P (MAP) Pulse Ox O2 Delivery O2 Flow Rate FiO2 12/29/16 12:00 97.8 93 18 134/67 (89) 100 12/29/16 09:39 Room Air Labs Date/Time Source Procedure Growth Status 12/17/16 10:00 Blood Peripheral Aerobic Blood Culture - Final NO GROWTH IN 5 DAYS Complete 12/17/16 10:00 Blood Peripheral Anaerobic Blood Culture - Final NO GROWTH IN 5 DAYS Complete 12/17/16 12:25 Wound Abdomen Gram Stain - Final Complete 12/17/16 12:25 Wound Culture - Final Klebsiella Pneumoniae Pseudomonas Aeruginosa Escherichia Coli Complete Radiology Last Impressions Chest X-Ray 12/17/16925 Signed Impressions: Service Date/Time: Saturday, December 17, 2016 10:16 - CONCLUSION: Negative for acute process. Kieran Babb MD FACR Abdomen/Pelvis CT 12/17/16925 Signed Impressions: Service Date/Time: Saturday, December 17, 2016 11:34 - CONCLUSION: There is free air in the abdomen. Most of the free air is in the upper abdomen with air seen around the hepatic artery. Suspect a perforation of a viscus, most likely in the upper GI tract location. The other possibility could be the surgical anastomosis from patient's prior colon resection. Alo Noel MD Abdomen: Non-distended, Non-tender Narrative Exam Small area with packing in place Dressing with very minimal drainage present. A/P Problem List: (1) Acute blood loss anemia ICD Codes: D62 - Acute posthemorrhagic anemia Status: Acute (2) Hemoperitoneum ICD Codes: K66.1 - Hemoperitoneum Status: Acute (3) Leukocytosis ICD Codes: D72.829 - Elevated white blood cell count, unspecified Status: Acute (4) Thrombocytopenia ICD Codes: D69.6 - Thrombocytopenia, unspecified Status: Acute (5) Pain, postoperative, acute ICD Codes: G89.18 - Other acute postprocedural pain Status: Acute (6) Diverticulitis ICD Codes: K57.92 - Diverticulitis of intestine, part unspecified, without perforation or abscess without bleeding (7) Postoperative wound infection ICD Codes: T81.4XXA - Infection following a procedure, initial encounter Status: Acute (8) Symptomatic anemia ICD Codes: D64.9 - Anemia, unspecified Status: Acute (9) Weakness ICD Codes: R53.1 - Weakness Status: Acute Assessment and Plan Assessment and Plan 4 weeks post open sigmoid resection for severe diverticular disease, several months post emergent splenectomy for splenic capsular tear during colonoscopy, Now with free air likely from from colonic anastomosis, CT suggests such. No leak of rectal contrast, free air now mostly lower abdominal. Patient is not septic, does not have peritonitis. She is anemic likely related to malnutrition, has received pRBC transfusion and is stable.She has anxiety disorder. No further enteric concerning drainage. HGB 10 yesterday; 10.4 today She has an edematous duodenum and a colonic anastomotic fistula, likely to her wound, that is not draining anymore. This should heal with improved nutrition. Plan now is hospitalization through the weekend, improve nutrition, continue abx and PPI.. Manage anxiety, avoid contrast studies. If Hgb drops, support with transfusion and get hematology consult for their opinion. Problem Qualifiers (1) Postoperative wound infection: Qualified Codes: T81.4XXA - Infection following a procedure, initial encounter Tee Hawthorne MD Dec 29, 2016 17:54
[2016-12-29] MEDS: SODIUM CHLOR 0.9% 1000 ML INJ 1,000 ML IV SCH (20:06)
[2016-12-29] MEDS: ALPRAZolam 1 MG TAB PO PRN (22:52)
[2016-12-30 04:00] VITALS: BP 138/70; PULSE 83; RESP 20; TEMP 97.7; O2SAT 97
[2016-12-30] MEDS: PIPERACIL-TAZO 3.375 GM PREMIX 50 ML IV SCH ×3 (04:53→21:52)
[2016-12-30 08:00] VITALS: BP 139/79; PULSE 91; RESP 18; TEMP 97.7; O2SAT 98
[2016-12-30] MEDS: REMOVE OLD SCOPOLAMINE PATCH T-DERMAL SCH (09:00)
[2016-12-30] MEDS: LISINOPRIL 10 MG TAB PO SCH (09:08)
[2016-12-30] MEDS: SODIUM CHLORIDE 0.9% FLUSH 10 ML FLUSH IV FLUSH SCH ×2 (09:08→21:00)
[2016-12-30] MEDS: SCOPOLAMINE 1.5 MG PATCH T-DERMAL SCH (09:09)
[2016-12-30] MEDS: PANTOPRAZOLE SODIUM 40 MG VIAL IV PUSH SCH (09:09)
[2016-12-30] MEDS: ALPRAZolam 1 MG TAB PO PRN ×2 (09:16→22:50)
[2016-12-30] MEDS: SODIUM CHLOR 0.9% 1000 ML INJ 1,000 ML IV SCH ×2 (10:28→21:56)
--- NOTE | 2016-12-30 11:57 | HHI.PR ---
Subjective Subjective Notes out in lobby visiting with friends, reports no pain, minimal drainage. Objective Vitals/I&O Vital Signs Date Time Temp Pulse Resp B/P (MAP) Pulse Ox O2 Delivery O2 Flow Rate FiO2 12/30/16 09:20 Room Air 12/30/16 08:00 97.7 91 18 139/79 (99) 98 Labs Date/Time Source Procedure Growth Status 12/17/16 10:00 Blood Peripheral Aerobic Blood Culture - Final NO GROWTH IN 5 DAYS Complete 12/17/16 10:00 Blood Peripheral Anaerobic Blood Culture - Final NO GROWTH IN 5 DAYS Complete 12/17/16 12:25 Wound Abdomen Gram Stain - Final Complete 12/17/16 12:25 Wound Culture - Final Klebsiella Pneumoniae Pseudomonas Aeruginosa Escherichia Coli Complete Radiology Last Impressions Chest X-Ray 12/17/16925 Signed Impressions: Service Date/Time: Saturday, December 17, 2016 10:16 - CONCLUSION: Negative for acute process. Kieran Babb MD FACR Abdomen/Pelvis CT 12/17/16925 Signed Impressions: Service Date/Time: Saturday, December 17, 2016 11:34 - CONCLUSION: There is free air in the abdomen. Most of the free air is in the upper abdomen with air seen around the hepatic artery. Suspect a perforation of a viscus, most likely in the upper GI tract location. The other possibility could be the surgical anastomosis from patient's prior colon resection. Alo Noel MD A/P Problem List: (1) Acute blood loss anemia ICD Codes: D62 - Acute posthemorrhagic anemia Status: Acute (2) Hemoperitoneum ICD Codes: K66.1 - Hemoperitoneum Status: Acute (3) Leukocytosis ICD Codes: D72.829 - Elevated white blood cell count, unspecified Status: Acute (4) Thrombocytopenia ICD Codes: D69.6 - Thrombocytopenia, unspecified Status: Acute (5) Pain, postoperative, acute ICD Codes: G89.18 - Other acute postprocedural pain Status: Acute (6) Diverticulitis ICD Codes: K57.92 - Diverticulitis of intestine, part unspecified, without perforation or abscess without bleeding (7) Postoperative wound infection ICD Codes: T81.4XXA - Infection following a procedure, initial encounter Status: Acute (8) Symptomatic anemia ICD Codes: D64.9 - Anemia, unspecified Status: Acute (9) Weakness ICD Codes: R53.1 - Weakness Status: Acute Assessment and Plan s/p sigmoid colectomy doing well labs stable Problem Qualifiers (1) Postoperative wound infection: Qualified Codes: T81.4XXA - Infection following a procedure, initial encounter Samuel Godwin MD Dec 30, 2016 11:57
[2016-12-30 12:00] VITALS: BP 123/61; PULSE 100; RESP 18; TEMP 98.6; O2SAT 99
[2016-12-30 16:00] VITALS: BP 133/63; PULSE 94; RESP 18; TEMP 98.3; O2SAT 98
[2016-12-30 20:00] VITALS: BP 131/62; PULSE 96; RESP 20; TEMP 99.1; O2SAT 98
[2016-12-31] VITALS: BP 138/67; PULSE 91; RESP 20; TEMP 98.1; O2SAT 97
[2016-12-31] MEDS: PIPERACIL-TAZO 3.375 GM PREMIX 50 ML IV SCH ×2 (03:30→11:24)
[2016-12-31 04:00] VITALS: BP 131/77; PULSE 89; RESP 20; TEMP 98.2; O2SAT 97
--- NOTE | 2016-12-31 07:38 | HHI.PR ---
Subjective Subjective Notes Had a decent weekend. No more nausea, still using scopolamine patch. Eating eating eating. Normal voids and BMs. Has occasional short pain across lower abdomen, when getting up, goes away quickly. Objective Vitals/I&O Vital Signs Date Time Temp Pulse Resp B/P (MAP) Pulse Ox O2 Delivery O2 Flow Rate FiO2 12/31/16 04:00 98.2 89 20 131/77 (95) 97 12/30/16 21:59 Room Air Labs Date/Time Source Procedure Growth Status 12/17/16 10:00 Blood Peripheral Aerobic Blood Culture - Final NO GROWTH IN 5 DAYS Complete 12/17/16 10:00 Blood Peripheral Anaerobic Blood Culture - Final NO GROWTH IN 5 DAYS Complete 12/17/16 12:25 Wound Abdomen Gram Stain - Final Complete 12/17/16 12:25 Wound Culture - Final Klebsiella Pneumoniae Pseudomonas Aeruginosa Escherichia Coli Complete Radiology Last Impressions Chest X-Ray 12/17/16925 Signed Impressions: Service Date/Time: Saturday, December 17, 2016 10:16 - CONCLUSION: Negative for acute process. Kieran Babb MD FACR Abdomen/Pelvis CT 12/17/16925 Signed Impressions: Service Date/Time: Saturday, December 17, 2016 11:34 - CONCLUSION: There is free air in the abdomen. Most of the free air is in the upper abdomen with air seen around the hepatic artery. Suspect a perforation of a viscus, most likely in the upper GI tract location. The other possibility could be the surgical anastomosis from patient's prior colon resection. Alo Noel MD Abdomen: Non-distended, Non-tender, Other (dressing changed, only yellow serous drainage. opening and wound depth smaller.) Extremities: No edema, Perfused Narrative Exam . A/P Problem List: (1) Acute blood loss anemia ICD Codes: D62 - Acute posthemorrhagic anemia Status: Acute (2) Hemoperitoneum ICD Codes: K66.1 - Hemoperitoneum Status: Acute (3) Leukocytosis ICD Codes: D72.829 - Elevated white blood cell count, unspecified Status: Acute (4) Thrombocytopenia ICD Codes: D69.6 - Thrombocytopenia, unspecified Status: Acute (5) Pain, postoperative, acute ICD Codes: G89.18 - Other acute postprocedural pain Status: Acute (6) Diverticulitis ICD Codes: K57.92 - Diverticulitis of intestine, part unspecified, without perforation or abscess without bleeding (7) Postoperative wound infection ICD Codes: T81.4XXA - Infection following a procedure, initial encounter Status: Acute (8) Symptomatic anemia ICD Codes: D64.9 - Anemia, unspecified Status: Acute (9) Weakness ICD Codes: R53.1 - Weakness Status: Acute Assessment and Plan 5 weeks post open sigmoid resection for severe diverticular disease, several months post emergent splenectomy for splenic capsular tear during colonoscopy, Now with free air likely from from colonic anastomosis, CT suggests such. No leak of rectal contrast, free air now mostly lower abdominal. Patient is not septic, does not have peritonitis. She is anemic likely related to malnutrition, has received pRBC transfusion and is stable.She has anxiety disorder. No further enteric concerning drainage. will check CBC. If all is stable will consider DC. I will revisit this afternoon.. Problem Qualifiers (1) Postoperative wound infection: Qualified Codes: T81.4XXA - Infection following a procedure, initial encounter Francisco Hinton MD Dec 31, 2016 07:38
[2016-12-31 08:21] VITALS: BP 137/70; PULSE 89; RESP 16; TEMP 98.3; O2SAT 98
[2016-12-31] MEDS: SODIUM CHLORIDE 0.9% FLUSH 10 ML FLUSH IV FLUSH SCH (08:32)
[2016-12-31] MEDS: LISINOPRIL 10 MG TAB PO SCH (08:32)
[2016-12-31] MEDS: ALPRAZolam 1 MG TAB PO PRN (08:32)
[2016-12-31] MEDS: PANTOPRAZOLE SODIUM 40 MG VIAL IV PUSH SCH (08:32)
[2016-12-31] MEDS: SODIUM CHLOR 0.9% 1000 ML INJ 1,000 ML IV SCH (11:25)
[2016-12-31 12:50] LABS: AUTOMATED NEUTROPHIL # 3.3 TH/MM3 (1.8-7.7); BASOPHIL # 0.2 TH/MM3 (0-0.2); BASOPHIL % 3.2 % (0.0-2.0); EOSINOPHIL # 0.3 TH/MM3 (0-0.4); EOSINOPHIL % 5.2 % (0.0-4.0); HEMATOCRIT 29.9 % (35.0-46.0); HEMO FLAGS DIFF FINAL; LYMPH % 24.5 % (9.0-44.0); LYMPHOCYTE # 1.5 TH/MM3 (1.0-4.8); MEAN CELL VOLUME 87.8 FL (80.0-100.0); MEAN CORPUSCULAR HEMOGLOBIN 28.7 PG (27.0-34.0); MEAN CORPUSCULAR HGB CONC 32.7 % (32.0-36.0); MONO % 15.4 % (0.0-8.0); NEUT % 51.7 % (16.0-70.0); PLATELET COUNT 433 TH/MM3 (150-450); RED CELL DISTRIBUTION WIDTH 22.6 % (11.6-17.2); WHITE BLOOD COUNT 6.3 TH/MM3 (4.0-11.0)
[2016-12-31 13:09] VITALS: BP 126/72; PULSE 96; RESP 20; TEMP 98; O2SAT 99
[2016-12-31] MEDS: ACETAMINOPHEN 325 MG TAB PO PRN (14:01)
[2016-12-31 15:41] VITALS: RESP 16
[2016-12-31] MEDS ORDERED: SCOP1PAT2 T-DERMAL (17:04)
[2016-12-31] MEDS ORDERED: PROT40TA PO (17:04)
--- NOTE | 2016-12-31 17:09 | HHI.DS ---
Discharge Summary Admission Date Dec 17, 2016 at 10:57 Discharge Date: Dec 31, 2016 Admitting Diagnosis dehydration, symptomatic anemia, postsurgical complication (1) Acute blood loss anemia ICD Codes: D62 - Acute posthemorrhagic anemia Status: Acute (2) Hemoperitoneum ICD Codes: K66.1 - Hemoperitoneum Status: Acute (3) Leukocytosis ICD Codes: D72.829 - Elevated white blood cell count, unspecified Status: Acute (4) Thrombocytopenia ICD Codes: D69.6 - Thrombocytopenia, unspecified Status: Acute (5) Pain, postoperative, acute ICD Codes: G89.18 - Other acute postprocedural pain Status: Acute (6) Diverticulitis ICD Codes: K57.92 - Diverticulitis of intestine, part unspecified, without perforation or abscess without bleeding (7) Postoperative wound infection ICD Codes: T81.4XXA - Infection following a procedure, initial encounter Status: Acute (8) Symptomatic anemia ICD Codes: D64.9 - Anemia, unspecified Status: Acute (9) Weakness ICD Codes: R53.1 - Weakness Status: Acute Brief History This is a 60 year old female who has had multiple hospitalizations in the past few months. On August 10 of this year the patient had an outpatient colonoscopy without immediate complications. That evening the patient was brought to the ED for dizziness and shortness of breath. A CT abdomen pelvis was complete which showed a splenic hemorrhage. The patient was taken to the OR by Dr. 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 The patient recovered from the surgery and went home. On November 26 the patient was brought in for an open resection for severely inflamed sigmoid colon. The patient had a noncomplicated post operative hospitalization and discharged home. The patient was seen in the office on Saturday 3th. At that time she was found to have a small infection in the inferior portion of her midline incision. The patient was given a prescription for an oral antibiotic. On Saturday the patient continued to feel tired and have persistent nausea with little appetite. On Saturday, the patient did feel better but this morning she began feeling worse with increase nausea and decreased appetite. She was brought to the ED for evaluation. The patient was found to be tachycardiac and given 2L boluses of normal saline. Routine lab work was obtained which revealed a normal white blood cell count and low hemoglobin and hematocrit. Her CMP was essentially normal. A CT abdomen/pelvis was obtained which showed free air the abdomen. Two units packed red blood cells were ordered and NPO status. An admission to the General Surgery service has been requested. CBC/BMP: 12/31/16 1208 Significant Findings Laboratory Tests Test 12/31/16 12:08 Red Blood Count 3.40 MIL/MM3 (4.00-5.30) Hemoglobin 9.8 GM/DL (11.6-15.3) Hematocrit 29.9 % (35.0-46.0) Red Cell Distribution Width 22.6 % (11.6-17.2) Monocytes (%) (Auto) 15.4 % (0.0-8.0) Eosinophils (%) (Auto) 5.2 % (0.0-4.0) Basophils (%) (Auto) 3.2 % (0.0-2.0) Monocytes # (Auto) 1.0 TH/MM3 (0-0.9) PE at Discharge Small area with packing in place Dressing with very minimal drainage present. Hospital Course The pt was admitted through the ED due to prgressive malnutrition, dehydration, and anemia. She was supported with IVFs, abx, antifungals, PPI and transfused a total of 5 u pRBCs. She had CT scans to evaluate free air and follow it up, as well as EGD which demonstrated a "swollen duodenum" and the appearance of a "fistula" at the anastomosis. She never developed peritonitis, is able to eat and drink and have normal bowel and bladder function. Her Hgb is stable at 9.8. She feels well and desires DC with scopolamine and protonix, in addition to her normal meds of lisinopril and xanax. We agree she should avoid narcotics, aspirin, advil, and aleve. [facility] is arranged to help with dressing changes, she thinks she will be able to transition to doing them on her own. Pt Condition on Discharge: Good Discharge Disposition: Disch w/ Home Health Serv Discharge Instructions DIET: Follow Instructions for: As Tolerated, No Restrictions Additional Diet Instructions: eat plenty of protein. Activities you can perform: Regular-No Restrictions, Shower/Bath Activities to Avoid: Driving Francisco Hinton MD Dec 31, 2016 17:09
== END 2016-12-31 18:48 | disposition home health service (06) | DRG 863 ==
LOC: NEPC 08:39 → NEDA 10:57 → N05B 16:16
PROVIDERS: ADMIT Surgery Trauma Surgery; ATTEND Surgery Trauma Surgery
PROC: 30233N1 Transfusion of Nonautologous Red Blood Cells into Peripheral Vein, Percutaneous Approach (ICD-10-PCS; principal; 2016-12-17)
PROC: 0DBN8ZX Excision of Sigmoid Colon, Via Natural or Artificial Opening Endoscopic, Diagnostic (ICD-10-PCS; 2016-12-27)
PROC: 0DB98ZX Excision of Duodenum, Via Natural or Artificial Opening Endoscopic, Diagnostic (ICD-10-PCS; 2016-12-27 11:30)
DX: T81.4XXA Infection following a procedure, initial encounter (principal); K63.2 Fistula of intestine; T81.83XA Persistent postprocedural fistula, initial encounter; E46 Unspecified protein-calorie malnutrition; K31.5 Obstruction of duodenum; D62 Acute posthemorrhagic anemia; K91.89 Other postprocedural complications and disorders of digestive system; Z68.1 Body mass index [BMI] 19.9 or less, adult; J98.11 Atelectasis; D69.6 Thrombocytopenia, unspecified; E86.0 Dehydration; Y83.2 Surgical operation with anastomosis, bypass or graft as the cause of abnormal reaction of the patient, or of later complication, without mention of misadventure at the time of the procedure; I10 Essential (primary) hypertension; F41.9 Anxiety disorder, unspecified; R00.0 Tachycardia, unspecified; D72.829 Elevated white blood cell count, unspecified; Z87.891 Personal history of nicotine dependence; Z90.81 Acquired absence of spleen
CPT/HCPCS: 36430; 71010; 74177; 74241; 76937; 80048; 80053; 81001; 82948; 83605; 83690; 83735; 84134; 85007; 85018; 85025; 85027; 86850; 86900; 86901; 86920; 87040; 87070; 87077; 87186; 87205; 88305; 93005; 96361; 96374; C9113; J0131; J1170; J1450; J2060; J2405; J2543; J7030; P9016; Q9963; Q9967